=== PATIENT | female | born 1990 | race American Indian/Alaskan Native ===

== ENCOUNTER 2017-01-29 06:09 | Emergency (ER) | payer SELFPAY ==
[2017-01-29 06:09] VITALS: BMI 25.9
--- NOTE | 2017-01-29 07:29 | ED PDOC ---
Arrival/HPI - General Historian: Patient <Ifeanyi Rhodes - Last Filed: 01/29/17 09:36> <Edward Reyes - Last Filed: 01/29/17 10:22> - General Chief Complaint: Abnormal Skin Integrity Time Seen by Provider: 01/29/17 07:10 - History of Present Illness Narrative History of Present Illness (Text): 01/29/17 07:23 Patient is a 26 year old female with past medical history significant for pancreatitis and recurrent abscess who presents to the emergency department complaining of recurrent abscess under her right and left arm. Patient states that 8 days ago she was seen at [facility] and an I&D was preformed for an abscess located under her right arm. She was discharged without antibiotics and returned home. She states since that time the abscess has grown in size. She reports a 3 day history of tingling sensation in her right anterior armpit to arm. She denies developing weakness or numbness in her upper extremity. She rates the pain as 8/10. She denies fever, nausea, vomiting, diarrhea. She admits to some chills. She reports taking Tylenol with out relieve. (Ifeanyi Rhodes) Past Medical History - Provider Review Nursing Documentation Reviewed: Yes - Infectious Disease Hx of Infectious Diseases: None - Tetanus Immunization Tetanus Immunization: Unknown - Cardiac Hx Cardiac Disorders: No - Pulmonary Hx Respiratory Disorders: No - Neurological Hx Neurological Disorder: No - HEENT Hx HEENT Disorder: No - Renal Hx Renal Disorder: No - Endocrine/Metabolic Hx Endocrine Disorders: No - Hematological/Oncological Hx Hepatitis A: No Hx Hepatitis B: No Hx Hepatitis C: No - Integumentary Hx Dermatological Disorder: No - Musculoskeletal/Rheumatological Hx Musculoskeletal Disorders: No Hx Falls: No - Gastrointestinal Hx Crohn's Disease: No Hx Diverticulitis: No Hx Gall Bladder Disease: No Hx Gastritis: No Hx Pancreatitis: Yes - Genitourinary/Gynecological Hx Genitourinary Disorders: No - Psychiatric Hx Psychophysiologic Disorder: Yes Hx Substance Use: No - Surgical History Other/Comment: Cyst removal bilat armpit - Anesthesia Hx Anesthesia: Yes Hx Anesthesia Reactions: No Hx Malignant Hyperthermia: No <Ifeanyi Rhodes - Last Filed: 01/29/17 09:36> <Edward Reyes - Last Filed: 01/29/17 10:22> - Patient History Narrative Patient History: History of recurrent abscess Pacreatitis History of substance abuse History of substance abuse treatment (Ifeanyi Rhodes) Family/Social History - Physician Review Nursing Documentation Reviewed: Yes Family/Social History: No Known Family HX Smoking Status: Light Smoker < 10 Cigarettes Daily Hx Alcohol Use: Yes Frequency of alcohol use: Socially Hx Substance Use: No <Ifeanyi Rhodes - Last Filed: 01/29/17 09:36> Allergies/Home Meds <Ifeanyi Rhodes - Last Filed: 01/29/17 09:36> <Edward Reyes - Last Filed: 01/29/17 10:22> Allergies/Adverse Reactions: Allergies No Known Allergies Allergy (Verified 01/29/17 06:16) Review of Systems - Physician Review All systems were reviewed & negative as marked: Yes - Review of Systems Constitutional: Other (Chills) Musculoskeletal: absent: Neck Pain, Joint Swelling Neurological: absent: Focal Weakness <Ifeanyi Rhodes - Last Filed: 01/29/17 09:36> Physical Exam Temperature: Afebrile Blood Pressure: Hypertensive Pulse: Regular Respiratory Rate: Normal Appearance: Positive for: Well-Appearing Pain Distress: Moderate (with palpation of abscess) Mental Status: Positive for: Alert and Oriented X 3 - Systems Exam Head: Present: Atraumatic, Normocephalic Pupils: Present: PERRL Extroacular Muscles: Present: EOMI Conjunctiva: Present: Normal Mouth: Present: Moist Mucous Membranes Neck: Present: Normal Range of Motion Respiratory/Chest: Present: Clear to Auscultation, Good Air Exchange. No: Respiratory Distress, Accessory Muscle Use Cardiovascular: Present: Regular Rate and Rhythm, Normal S1, S2. No: Murmurs Abdomen: Present: Normal Bowel Sounds. No: Tenderness, Distention, Peritoneal Signs Breast/Axillary: Present: Other (scar tissue from recurrent I&D of abscess with in the axilla, elevated abscess right axilla no drainage ) Upper Extremity: Present: Normal Inspection, Normal ROM, NORMAL PULSES, Neurovascularly Intact Lower Extremity: Present: Normal Inspection. No: Edema Neurological: Present: GCS=15, CN II-XII Intact, Speech Normal Skin: Present: Abscess (Right axilla, Left axilla ) Psychiatric: Present: Alert, Oriented x 3, Normal Insight, Normal Concentration <Ifeanyi Rhodes - Last Filed: 01/29/17 09:36> Medical Decision Making <Ifeanyi Rhodes - Last Filed: 01/29/17 09:36> <Edward Reyes - Last Filed: 01/29/17 10:22> ED Course and Treatment: 01/29/17 07:38 Impression: Tsering Merlos is a 26 year old female with past medical history of recurrent abscess' of the axilla for which she has had multiple I&D procedures who is complaining of pain due to an abscess of the right axilla for the past week. Differential Diagnosis included but are not limited to: - Recurrent abscess Plan: - Bactrim and Keflex prescription for outpatient - I&D of right axilla abscess -- Reassess and disposition Progress Notes: 01/29/17 08:05 - Discussed with patient I&D procedure and she is refusing at this time and would like to request treatment via antibiotics with planned return for wound check (Ifeanyi Rhodes) 01/29/17 10:20 26 yo female with reoccuring abscess. On exam she had one small one on the right axillary that had mild fluctuance and was visualized with ultrasound. Patient did not want to get it I&D here and preferred abx saying that worked before. She says she also wants to get these removed under general anesthesia so we referred her to Dr. Betancourt. Advised her to return to the ED in 3 days for a wound check since she'll be on abx and the abscess will need to be drained. (Edward Reyes) - PA / MECHANICAL INTEGRITY SPECIALIST / Resident Statement / has reviewed & agrees with the documentation as recorded. / has examined the patient and agrees with the treatment plan. <Ifeanyi Rhodes - Last Filed: 01/29/17 09:36> Disposition/Present on Arrival - Present on Arrival Any Indicators Present on Arrival: No History of DVT/PE: No History of Uncontrolled Diabetes: No Urinary Catheter: No History of Decub. Ulcer: No History Surgical Site Infection Following: None - Disposition Have Diagnosis and Disposition been Completed?: Yes Disposition Time: 08:12 Patient Plan: Discharge <Ifeanyi Rhodes - Last Filed: 01/29/17 09:36> - Present on Arrival Any Indicators Present on Arrival: No - Disposition Have Diagnosis and Disposition been Completed?: Yes <Edward Reyes - Last Filed: 01/29/17 10:22> - Disposition Diagnosis: Abscess of axilla, right Disposition: HOME/ ROUTINE Condition: STABLE Discharge Instructions (ExitCare): Abscess (GEN) Additional Instructions: Tsering, thank you for letting us take care of you today. Your provider was Dr. Rhodes and Dr. Reyes. You were treated for abscess. The emergency medical care you received today was directed at your acute symptoms. If you were prescribed any medication, please fill it and take as directed. It may take several days for your symptoms to resolve. Return to the Emergency Department if your symptoms worsen, do not improve, or if you have any other problems. Please contact your doctor or call one of the physicians/clinics you have been referred to that are listed on the Patient Visit Information form that is included in your discharge packet. Bring any paperwork you were given at discharge with you along with any medications you are taking to your follow up visit. Our treatment cannot replace ongoing medical care by a primary care provider (PCP) outside of the emergency department. Thank you for allowing the [facility] team to be part of your care today. Follow up in 3 days to [facility] for wound check Follow up with Dr. Betancourt for surgical management of recurrent abscess Prescriptions: Cephalexin [cephalexin] 500 mg PO BID #14 cap Sulfamethoxazole/Trimethoprim [Bactrim DS 800 mg-160 mg] 1 tab PO BID #14 tab Referrals: Kesha Mariee, [Primary Care Provider] - Follow up with primary Forms: [employer] (Mongolian), WORK NOTE
[2017-01-29 08:47] VITALS: BP 138/72; PULSE 72; RESP 16; TEMP 98.3; O2SAT 99
== END 2017-01-29 08:51 | disposition home or self-care (01) ==
LOC: ED 06:09
DX: L02.411 Cutaneous abscess of right axilla (principal)

== ENCOUNTER 2017-02-27 23:46 | Emergency (ER) | payer SELFPAY ==
[2017-02-27 23:47] VITALS: BMI 25.9
[2017-02-28 00:02] VITALS: BP 138/79; PULSE 78; RESP 18; TEMP 98.4; O2SAT 99
[2017-02-28] MEDS ORDERED: Sodium Chloride 0.9% 1,000 ML IV STA (00:45)
--- NOTE | 2017-02-28 00:45 | ED PDOC ---
Arrival/HPI - General Chief Complaint: Abdominal Pain Time Seen by Provider: 02/28/17 00:30 Historian: Patient - History of Present Illness Narrative History of Present Illness (Text): 02/28/17 00:45 Tsering Merlos is a 25 year old female, whose past medical history includes pancreatitis/gastritis, who presents to the ED complaining of abdominal pain. Patient states she has been experiencing LUQ/epigastric pain radiating to her back for the past 2 days, worsening yesterday. Patient reports associated diarrhea. Patient denies any fever, chills, chest pain, shortness of breath, vomiting, urinary symptoms, back pain, neck pain, headache, dizziness, or any other complaints. Time/Duration: < week (2 days) Symptom Onset: Gradual Symptom Course: Worsening Activities at Onset: Rest, Light Context: Home Past Medical History - Provider Review Nursing Documentation Reviewed: Yes - Infectious Disease Hx of Infectious Diseases: None - Tetanus Immunization Tetanus Immunization: Unknown - Cardiac Hx Cardiac Disorders: No - Pulmonary Hx Respiratory Disorders: No - Neurological Hx Neurological Disorder: No - HEENT Hx HEENT Disorder: No - Renal Hx Renal Disorder: No - Endocrine/Metabolic Hx Endocrine Disorders: No - Hematological/Oncological Hx Hepatitis A: No Hx Hepatitis B: No Hx Hepatitis C: No - Integumentary Hx Dermatological Disorder: No - Musculoskeletal/Rheumatological Hx Musculoskeletal Disorders: No Hx Falls: No - Gastrointestinal Hx Crohn's Disease: No Hx Diverticulitis: No Hx Gall Bladder Disease: No Hx Gastritis: No Hx Pancreatitis: Yes - Genitourinary/Gynecological Hx Genitourinary Disorders: No - Psychiatric Hx Psychophysiologic Disorder: Yes Hx Substance Use: No - Surgical History Other/Comment: Cyst removal bilat armpit - Anesthesia Hx Anesthesia: Yes Hx Anesthesia Reactions: No Hx Malignant Hyperthermia: No Family/Social History - Physician Review Nursing Documentation Reviewed: Yes Family/Social History: Unknown Family HX Smoking Status: Light Smoker < 10 Cigarettes Daily Hx Alcohol Use: Yes Hx Substance Use: No Allergies/Home Meds Allergies/Adverse Reactions: Allergies No Known Allergies Allergy (Verified 01/29/17 06:16) Review of Systems - Physician Review All systems were reviewed & negative as marked: Yes - Review of Systems Constitutional: Normal. absent: Fevers Eyes: Normal ENT: Normal Respiratory: Normal. absent: SOB, Cough Cardiovascular: Normal. absent: Chest Pain Gastrointestinal: Abdominal Pain, Diarrhea. absent: Vomiting Genitourinary Female: Normal. absent: Dysuria, Frequency, Hematuria, Urine Output Changes Musculoskeletal: Normal. absent: Back Pain, Neck Pain Skin: Normal. absent: Rash Neurological: Normal. absent: Headache, Dizziness Endocrine: Normal Hemo/Lymphatic: Normal Psychiatric: Normal Physical Exam Vital Signs Reviewed: Yes Vital Signs Temp Pulse Resp BP Pulse Ox 02/27/17 23:58 98.4 F 78 18 138/79 99 Temperature: Afebrile Blood Pressure: Normal Pulse: Regular Respiratory Rate: Normal Appearance: Positive for: Well-Appearing, Non-Toxic, Comfortable Pain Distress: None Mental Status: Positive for: Alert and Oriented X 3 - Systems Exam Head: Present: Atraumatic, Normocephalic Pupils: Present: PERRL Extroacular Muscles: Present: EOMI Conjunctiva: Present: Normal Mouth: Present: Moist Mucous Membranes Neck: Present: Normal Range of Motion Respiratory/Chest: Present: Clear to Auscultation, Good Air Exchange. No: Respiratory Distress, Accessory Muscle Use Cardiovascular: Present: Regular Rate and Rhythm, Normal S1, S2. No: Murmurs Abdomen: Present: Normal Bowel Sounds. No: Tenderness, Distention, Peritoneal Signs Back: Present: Normal Inspection Upper Extremity: Present: Normal Inspection. No: Cyanosis, Edema Lower Extremity: Present: Normal Inspection. No: Edema Neurological: Present: GCS=15, CN II-XII Intact, Speech Normal, Motor Func Grossly Intact, Normal Sensory Function Skin: Present: Warm, Dry, Normal Color. No: Rashes Psychiatric: Present: Alert, Oriented x 3, Normal Insight, Normal Concentration Medical Decision Making ED Course and Treatment: 02/28/17 00:45 Impression: 26 year old female c/o LUQ/epigastric pain with diarrhea x2 days. Plan: -- CT Abdomen and Pelvis w/o contrast -- Labs, lipase -- Urinalysis -- IV fluids -- Reassess and disposition Progress Notes: 02/28/17 05:01 Reviewed radiology, CT Abdomen and Pelvis shows: 1. Apparent stranding about pancreas. Correlate with amylase/lipase levels to exclude pancreatitis. 2. Possible LEFT ovarian cyst. Consider ultrasound. 3. Mild colitis versus underdistention. Clinical correlation is needed. 4. No CT evidence of urolithiasis. 5. Incidental/non-acute findings are described above. 02/28/17 05:28 On reevaluation the patient feels better and is in no acute distress. I have discussed the results and plan with the patient, who expresses understanding. Patient given the opportunity to ask question, all questions were answered and there is agreement with the plan to discharge the patient home. Patient is stable for discharge. Patient was instructed to follow up with physician/clinic in 1-2 days or return if symptoms persist/worsen or new concerning symptoms arise. - Lab Interpretations Lab Results: 02/28/17 00:30 02/28/17 00:30 Lab Results 02/28/17 00:30: WBC 7.9 D, RBC 3.40 L, Hgb 11.9 L, Hct 34.2 L, MCV 100.6, MCH 35.0, MCHC 34.8, RDW 17.7 H, Plt Count 445, MPV 8.9 02/28/17 00:30: Sodium 140, Potassium 3.0 L, Chloride 103, Carbon Dioxide 20 L, Anion Gap 20, BUN 4 L, Creatinine 0.6, Est GFR ( Amer) > 60, Est GFR (Non -Af Amer) > 60, Random Glucose 150 H, Calcium 9.1, Total Bilirubin 0.8, AST 104 H, ALT 69 H, Alkaline Phosphatase 91, Total Protein 7.5, Albumin 4.2, Globulin 3.3, Albumin/Globulin Ratio 1.3, Lipase 171 02/28/17 00:30: Urine Color Yellow, Urine Appearance Sl cloudy, Urine pH 6.5, Ur Specific [place] 1.025, Urine Protein 30 H, Urine Glucose (UA) Negative, Urine Ketones Trace H, Urine Blood Moderate H, Urine Nitrate Negative, Urine Bilirubin Small H, Urine Urobilinogen 1.0 H, Ur Leukocyte Esterase Negative, Urine RBC 1 - 3, Urine WBC 0 - 2, Ur Epithelial Cells 4 - 5, Urine Bacteria Few , Urine HCG, Qual Negative I have reviewed the lab results: Yes - RAD Interpretation Narrative RAD Interpretations (Text): CT Abdomen and Pelvis shows: Limitations: Lack of intravenous contrast. Lower thorax: No acute findings. ABDOMEN: Liver: Unremarkable. Gallbladder and bile ducts: No calcified stones. No ductal dilation. Pancreas: Apparent minimal haziness about tail. No ductal dilation. Spleen: No splenomegaly. Adrenals: No mass. Kidneys and ureters: No renal calculi. No hydronephrosis. Stomach and bowel: Segmental areas of mild mural thickening vs underdistention of large bowel. No associated inflammatory stranding. No obstruction. Appendix: Normal caliber. No inflammation. PELVIS: Bladder: Unremarkable. No stones. Reproductive: Apparent 1.8 x 1.7 x 2.0 cm hypodense lesion within LEFT ovary. ABDOMEN and PELVIS: Intraperitoneal space: No significant fluid collection. No free air. Bones/joints: No acute fracture. Soft tissues: Unremarkable. Vasculature: Unremarkable. No aneurysm. Lymph nodes: No pathologically enlarged lymph nodes. IMPRESSION: 1. Apparent stranding about pancreas. Correlate with amylase/lipase levels to exclude pancreatitis. 2. Possible LEFT ovarian cyst. Consider ultrasound. 3. Mild colitis versus underdistention. Clinical correlation is needed. 4. No CT evidence of urolithiasis. 5. Incidental/non-acute findings are described above. Radiology Orders: 02/28/17 03:06 ABD & PELVIS W/O PO OR IV CONT [CT] Stat Doctorate Of Chiropractic: Radiologist - Medication Orders Current Medication Orders: Ciprofloxacin (Cipro) 500 mg PO ONCE STA PRN Reason: Protocol Stop: 02/28/17 05:43 Discontinued Medications Sodium Chloride (Sodium Chloride 0.9%) 1,000 mls @ 999 mls/hr IV .Q1H1M STA Stop: 02/28/17 01:45 Last Admin: 02/28/17 00:50 Dose: 999 mls/hr Ketorolac Tromethamine (Toradol) 30 mg IVP ONCE ONE Stop: 02/28/17 02:06 Last Admin: 02/28/17 02:19 Dose: 30 mg Morphine Sulfate (Morphine) Confirm Administered Dose 2 mg .ROUTE .STK-MED ONE Stop: 02/28/17 03:48 Last Admin: 02/28/17 03:50 Dose: Morphine Sulfate (Morphine) 2 mg IVP STAT STA Stop: 02/28/17 03:46 Last Admin: 02/28/17 03:50 Dose: 2 mg Potassium Chloride (K-Dur 20 Meq Er Tab) 40 meq PO STAT STA Stop: 02/28/17 05:03 Last Admin: 02/28/17 05:33 Dose: 40 meq - Scribe Statement The provider has reviewed the documentation as recorded by the Isai Gutierrez Provider Scribe Attestation: All medical record entries made by the Scribe were at my direction and personally dictated by me. I have reviewed the chart and agree that the record accurately reflects my personal performance of the history, physical exam, medical decision making, and the department course for this patient. I have also personally directed, reviewed, and agree with the discharge instructions and disposition. Disposition/Present on Arrival - Present on Arrival Any Indicators Present on Arrival: No History of DVT/PE: No History of Uncontrolled Diabetes: No Urinary Catheter: No History of Decub. Ulcer: No History Surgical Site Infection Following: None - Disposition Have Diagnosis and Disposition been Completed?: Yes Diagnosis: Hypokalemia, Gastroenteritis Disposition: HOME/ ROUTINE Disposition Time: 05:28 Patient Plan: Discharge Patient Problems: Current Active Problems Problem Status Onset Gastroenteritis Acute Hypokalemia Acute Condition: STABLE Discharge Instructions (ExitCare): Hypokalemia (ED), Gastroenteritis (ED) Additional Instructions: Drink plenty of liquids/gatorade/potassium rich foods/take meds as prescribed/ follow up with your doctor this week/any recurrent worsening symptoms return to the emergency room Prescriptions: Ciprofloxacin [Cipro] 500 mg PO BID #6 tab Referrals: Kesha Mariee, [Primary Care Provider] - Follow up with primary Forms: [employer] (Ecuadorean)
[2017-02-28 00:59] LABS: HEMATOCRIT 34.2 % (36.0-48.0); MEAN CELL VOLUME 100.6 fl (80.0-105.0); MEAN CORPUSCULAR HGB CONC 34.8 g/dl (31.0-37.0); MEAN PLATELET VOLUME 8.9 fl (7.0-11.0); RED CELL DISTRIBUTION WIDTH 17.7 % (11.5-14.5); WHITE BLOOD COUNT 7.9 10^3/ul (4.5-11.0)
[2017-02-28 01:08] LABS: PH,URINE 6.5 (4.7-8.0); URINE BILIRUBIN SMALL (NEGATIVE); URINE BLOOD MODERATE (NEGATIVE); URINE GLUCOSE (UA) NEGATIVE (NEGATIVE); URINE KETONE TRACE mg/dL (NEGATIVE); URINE LEUKOCYTE ESTERASE NEGATIVE Leu/uL (NEGATIVE); URINE PROTEIN 30 mg/dL (<30 mg/dL)
[2017-02-28 01:11] LABS: URINE APPEARANCE SL CLOUDY (CLEAR); URINE COLOR YELLOW (YELLOW)
[2017-02-28 01:14] LABS: URINE BACTERIA FEW (NEG); URINE WBC 0 - 2 /hpf (0-6)
[2017-02-28 01:24] LABS: ALB/GLOB RATIO 1.3 (1.1-1.8); ALKALINE PHOSPHATASE 91 U/L (38-133); ALT/SGPT 69 U/L (7-56); AST/SGOT 104 U/L (15-39); BILIRUBIN,TOTAL 0.8 mg/dL (0.2-1.3); BLOOD UREA NITROGEN 4 mg/dL (7-21); CALCIUM 9.1 mg/dL (8.4-10.5); CARBON DIOXIDE 20 mmol/L (21-33); CHLORIDE 103 mmol/L (95-110); GFR AFRICAN-AMERICAN > 60; GLUCOSE,RANDOM 150 mg/dL (70-110); LIPASE 171 U/L (23-300); SODIUM 140 mmol/L (132-148); TOTAL PROTEIN 7.5 g/dL (5.8-8.3)
[2017-02-28] MEDS ORDERED: Morphine 2 mg/ml ISec IVP STA (03:45)
[2017-02-28] MEDS ORDERED: Morphine 2 mg/ml ISec ONE (03:47)
--- NOTE | 2017-02-28 05:00 | CT ---
EXAM: CT Abdomen and Pelvis Without Intravenous Contrast CLINICAL HISTORY: 26 years old, female; Pain; Abdominal pain; Additional info: Left upper abdomen/flank TECHNIQUE: Axial computed tomography images of the abdomen and pelvis without intravenous contrast. All CT scans at this facility use one or more dose reduction techniques, viz.: automated exposure control; ma/kV adjustment per patient size (including targeted exams where dose is matched to indication; i.e. head); or iterative reconstruction technique. Coronal and sagittal reformatted images were created and reviewed. COMPARISON: No relevant prior studies available. FINDINGS: Limitations: Lack of intravenous contrast. Lower thorax: No acute findings. ABDOMEN: Liver: Unremarkable. Gallbladder and bile ducts: No calcified stones. No ductal dilation. Pancreas: Apparent minimal haziness about tail. No ductal dilation. Spleen: No splenomegaly. Adrenals: No mass. Kidneys and ureters: No renal calculi. No hydronephrosis. Stomach and bowel: Segmental areas of mild mural thickening vs underdistention of large bowel. No associated inflammatory stranding. No obstruction. Appendix: Normal caliber. No inflammation. PELVIS: Bladder: Unremarkable. No stones. Reproductive: Apparent 1.8 x 1.7 x 2.0 cm hypodense lesion within LEFT ovary. ABDOMEN and PELVIS: Intraperitoneal space: No significant fluid collection. No free air. Bones/joints: No acute fracture. Soft tissues: Unremarkable. Vasculature: Unremarkable. No aneurysm. Lymph nodes: No pathologically enlarged lymph nodes. IMPRESSION: 1. Apparent stranding about pancreas. Correlate with amylase/lipase levels to exclude pancreatitis. 2. Possible LEFT ovarian cyst. Consider ultrasound. 3. Mild colitis versus underdistention. Clinical correlation is needed. 4. No CT evidence of urolithiasis. 5. Incidental/non-acute findings are described above.
[2017-02-28] MEDS ORDERED: Potassium Chloride 20 mEq ER Tab PO STA (05:02)
== END 2017-02-28 05:57 | disposition home or self-care (01) ==
LOC: ED 23:46
DX: K52.9 Noninfective gastroenteritis and colitis, unspecified (principal); E87.6 Hypokalemia
CPT/HCPCS: 74176; 80053; 81001; 83690; 84703; 85027; 96374; 96375; 99283; J1885; J2270; J7040

== ENCOUNTER 2017-02-28 19:03 | Emergency (ER) | payer MEDICAID, OTHER ==
[2017-02-28 19:05] VITALS: BMI 24.1
[2017-02-28] MEDS ORDERED: Sodium Chloride 0.9% 1,000 ML IV STA (19:28)
--- NOTE | 2017-02-28 19:33 | ED PDOC ---
Arrival/HPI - History of Present Illness Time/Duration: 4-6 hours Symptom Onset: Gradual Symptom Course: Unchanged Quality: Throbbing Severity Level: 7 Activities at Onset: Rest Context: Home - General Chief Complaint: GI Problem Time Seen by Provider: 02/28/17 19:08 - History of Present Illness Narrative History of Present Illness (Text): 02/28/17 19:29 This a 26 yr old female with a past medical history of pancreatitis who comes into [facility] complaining of vomiting and diarrhea for approximately one day. Per the patient she was released from [facility] this morning after coming in with similar symptoms on 02/28/17. She describes the pain as "throbbing" that begins in the left lower quadrant and radiates to the left upper quadrant and right upper quadrant. She reports taking a Tylenol for the pain but had no relief in her pain. She reports subjective fevers, chills and nausea. She denies any chest pain, shortness of breath, lightheadedness, dizziness, or any other complaints. (Robin Connor) Past Medical History - Provider Review Nursing Documentation Reviewed: Yes - Infectious Disease Hx of Infectious Diseases: None - Tetanus Immunization Tetanus Immunization: Unknown - Cardiac Hx Cardiac Disorders: No - Pulmonary Hx Respiratory Disorders: No - Neurological Hx Neurological Disorder: No - HEENT Hx HEENT Disorder: No - Renal Hx Renal Disorder: No - Endocrine/Metabolic Hx Endocrine Disorders: No - Hematological/Oncological Hx Hepatitis A: No Hx Hepatitis B: No Hx Hepatitis C: No - Integumentary Hx Dermatological Disorder: No - Musculoskeletal/Rheumatological Hx Musculoskeletal Disorders: No Hx Falls: No - Gastrointestinal Hx Crohn's Disease: No Hx Diverticulitis: No Hx Gall Bladder Disease: No Hx Gastritis: No Hx Pancreatitis: Yes - Genitourinary/Gynecological Hx Genitourinary Disorders: No - Psychiatric Hx Psychophysiologic Disorder: Yes Hx Substance Use: No - Surgical History Other/Comment: Cyst removal bilat armpit - Anesthesia Hx Anesthesia: Yes Hx Anesthesia Reactions: No Hx Malignant Hyperthermia: No Family/Social History - Physician Review Nursing Documentation Reviewed: Yes Smoking Status: Light Smoker < 10 Cigarettes Daily Hx Alcohol Use: Yes Frequency of alcohol use: Few days per week Hx Substance Use: No Allergies/Home Meds Allergies/Adverse Reactions: Allergies No Known Allergies Allergy (Verified 01/29/17 06:16) Review of Systems - Physician Review All systems were reviewed & negative as marked: Yes - Review of Systems Constitutional: Fevers (subjective fevers reported. Patient denies taking temperature with a thermometer.), Night Sweats. absent: Normal Eyes: Normal. absent: Eye Pain ENT: Normal. absent: Sore Throat, Rhinorrhea, Sinus Congestion Respiratory: Normal. absent: SOB, Cough, Wheezing Cardiovascular: Normal. absent: Chest Pain, Palpitations, Syncope Gastrointestinal: Abdominal Pain, Diarrhea, Nausea, Vomiting (non-billous, non- bloody). absent: Hematochezia, Hematemesis Genitourinary Female: Normal. absent: Dysuria, Frequency Musculoskeletal: Normal. absent: Back Pain, Joint Swelling Skin: Normal. absent: Rash, Abscess, Cellulitis Neurological: Normal. absent: Headache, Dizziness, Disequilibrium Hemo/Lymphatic: Normal. absent: Easy Bleeding, Easy Bruising Physical Exam Vital Signs Reviewed: Yes Temperature: Afebrile Blood Pressure: Hypertensive Pulse: Tachycardic Respiratory Rate: Normal Appearance: Positive for: Well-Appearing, Non-Toxic, Comfortable Pain Distress: Moderate Mental Status: Positive for: Alert and Oriented X 3 - Systems Exam Head: Present: Atraumatic, Normocephalic Pupils: Present: PERRL Extroacular Muscles: Present: EOMI. No: Gaze Palsy Conjunctiva: Present: Normal, Other Mouth: Present: Moist Mucous Membranes Neck: Present: Normal Range of Motion. No: JVD, Lymphadenopathy Respiratory/Chest: Present: Clear to Auscultation, Good Air Exchange. No: Respiratory Distress, Accessory Muscle Use, Wheezes, Tachypneic Cardiovascular: Present: Normal S1, S2. No: Regular Rate and Rhythm, Murmurs, Bradycardic Abdomen: Present: Tenderness (tenderness to palpation appreciated in all four quadrants of abdomen), Normal Bowel Sounds. No: Distention, Peritoneal Signs, Rebound Upper Extremity: Present: Normal Inspection. No: Cyanosis, Edema Lower Extremity: Present: Normal Inspection. No: Edema, Cyanosis Neurological: Present: CN II-XII Intact, Speech Normal Skin: Present: Dry, Normal Color. No: Warm, Rashes Psychiatric: Present: Alert, Oriented x 3, Normal Insight, Normal Concentration Vital Signs Temp Pulse Resp BP Pulse Ox 02/28/17 21:18 98.3 F 90 16 157/105 H 99 02/28/17 19:08 98.7 F 105 H 18 153/115 H 100 Medical Decision Making ED Course and Treatment: 02/28/17 20:35 pt seen and examined with resident 26yo female with n/v, abd pain. Pt was seen yesterday for similar complaint, was given cipro rx. pt states she did not fill it. On reeval, pt in no distress, resting comfortably in bed, watching TV abd soft/nt/nt pt provided with Rx card 02/28/17 21:51 Patient seen and examined with resident. Came up with treatment and disposition plan with resident. (Phill Turner) 02/28/17 19:42 This patient came in complaining of diffuse stomach pain, nausea, and vomiting after being discharged from [facility] earlier this morning. We ordered cbc with differential, cmp, lipase, and magnesium levels. We gave Zofran for the nausea and Toradol for the pain. The patient will be re- evaluated after lab results come back. Patient lab results showed a low potassium at 3.4 and low magnesium at 1.1. Patient was given KCL PO for the low potassium and MgSO4 1gm/100ml IVPB. Patient was also given PO intake tolerance to see if she is able to keep food and liquids down. The patient had a Abdominal CT done earlier this morning that showed some stranding around the pancreas, no signs of urolithiasis, possible left ovarian cyst(consider U/S) , and mild colitis vs. underdistention(clinical correlation is needed). Patient tolerating PO without vomiting. Belly is soft. Vitals are normal : BP 150/105, HR: 89, 98.3 F, 98 O2 Sat R.A. Patient was prescribed Ciprofloxacin at her last visit to the Emergency Department however didn't fill it due to the vance. I gave the patient a Good Rx coupon to subsidize the cost of the medication. I instructed the patient to fill the prescription and to take as directed by the physician. Patient was also given a referral to establish care with Dr. Moreno. (Robin Connor) - Lab Interpretations Lab Results: 02/28/17 19:45 02/28/17 19:45 Lab Results 02/28/17 19:45: Sodium 139, Potassium 3.4 L, Chloride 105, Carbon Dioxide 19 L, Anion Gap 18, BUN 8, Creatinine 1.4, Est GFR ( Amer) 55, Est GFR (Non-Af Amer) 45, Random Glucose 92, Calcium 8.6, Magnesium 1.1 L, Total Bilirubin 1.5 H , AST 80 H, ALT 58 H, Alkaline Phosphatase 96, Total Protein 7.6, Albumin 4.2, Globulin 3.4, Albumin/Globulin Ratio 1.2, Lipase 88 02/28/17 19:45: WBC 11.2 H D, RBC 3.32 L, Hgb 11.5 L, Hct 33.4 L, MCV 100.6, MCH 34.6, MCHC 34.4, RDW 17.1 H, Plt Count 399, MPV 8.8, Gran % 76.8 H, Lymph % (Auto) 13.9 L, [place] % (Auto) 8.3 H, Eos % (Auto) 0.9 L, Baso % (Auto) 0.1, Gran # 8.64 H, Lymph # 1.6, [place] # 0.9 H, Eos # 0.1, Baso # 0.01, Neutrophils % ( Manual) 82 H, Lymphocytes % (Manual) 14 L, Monocytes % (Manual) 1, Eosinophils % (Manual) 3, Platelet Evaluation Normal, Macrocytosis (manual) Slight - Medication Orders Current Medication Orders: Discontinued Medications Sodium Chloride (Sodium Chloride 0.9%) 1,000 mls @ 999 mls/hr IV .Q1H1M STA Stop: 02/28/17 20:28 Last Admin: 02/28/17 19:50 Dose: 999 mls/hr Magnesium Sulfate/Dextrose (Magnesium Sulfate 1 Gm/100 Ml D5w) 1 gm in 100 mls @ 100 mls/hr IVPB ONCE ONE Stop: 02/28/17 21:17 Ketorolac Tromethamine (Toradol) 15 mg IVP STAT STA Stop: 02/28/17 19:30 Last Admin: 02/28/17 19:49 Dose: 15 mg Ondansetron HCl (Zofran Inj) 4 mg IVP STAT STA Stop: 02/28/17 19:32 Last Admin: 02/28/17 19:50 Dose: 4 mg Potassium Chloride (K-Dur 20 Meq Er Tab) 40 meq PO STAT STA Stop: 02/28/17 20:54 Disposition/Present on Arrival - Present on Arrival History of DVT/PE: No History of Uncontrolled Diabetes: No Urinary Catheter: No History of Decub. Ulcer: No History Surgical Site Infection Following: None - Disposition Have Diagnosis and Disposition been Completed?: Yes Disposition Time: 21:25 Patient Plan: Discharge - Disposition Diagnosis: Abdominal pain, Hypokalemia, gastrointestinal losses Disposition: HOME/ ROUTINE Patient Problems: Current Active Problems Problem Status Onset Abdominal pain Acute Hypokalemia, gastrointestinal losses Acute Condition: GOOD Discharge Instructions (ExitCare): Abdominal Pain (ED) Additional Instructions: -Instructed patient to fill Ciprofloxacin prescription using the Good RX coupon and to take as prescribed by the physician. -Instructed patient to drink adequate fluids as tolerated PO. -Instructed patient to F/U with Dr. Moreno's Service. -Instructed patient to establish care with a Primary Care physician. -Patient is to return to [facility] if any new symptoms present or current symptoms worsen. Referrals: PCP,NO [Primary Care Provider] - Follow up with primary Natividad Moreno MD [Staff Provider] - Follow up with primary Forms: Easiest Credit Card To Get Approved For ([place])
[2017-02-28 19:59] LABS: BASO # 0.01 K/mm3 (0.0-2.0); BASO % 0.1 % (0.0-3.0); EOS # 0.1 (0.0-0.7); EOS % 0.9 % (1.5-5.0); GRAN # 8.64 (1.4-6.5); GRAN % 76.8 % (50.0-68.0); HEMATOCRIT 33.4 % (36.0-48.0); LYMPH # 1.6 (1.2-3.4); LYMPH % 13.9 % (22.0-35.0); MEAN CELL VOLUME 100.6 fl (80.0-105.0); MEAN CORPUSCULAR HEMOGLOBIN 34.6 pg (25.0-35.0); MEAN CORPUSCULAR HGB CONC 34.4 g/dl (31.0-37.0); MEAN PLATELET VOLUME 8.8 fl (7.0-11.0); MONO # 0.9 (0.1-0.6); MONO % 8.3 % (1.0-6.0); PLATELET COUNT 399 10^3/uL (120.0-450.0); RED CELL DISTRIBUTION WIDTH 17.1 % (11.5-14.5); WHITE BLOOD COUNT 11.2 10^3/ul (4.5-11.0)
[2017-02-28 20:10] LABS: ALB/GLOB RATIO 1.2 (1.1-1.8); BILIRUBIN,TOTAL 1.5 mg/dL (0.2-1.3); CALCIUM 8.6 mg/dL (8.4-10.5); MAGNESIUM 1.1 mg/dL (1.7-2.2); POTASSIUM 3.4 mmol/L (3.6-5.0); TOTAL PROTEIN 7.6 g/dL (5.8-8.3)
[2017-02-28] MEDS ORDERED: Magnesium Sulfate 1 gm in D5W 1 GM/100 ML BAG IVPB ONE (20:18)
[2017-02-28 20:49] LABS: EOSINOPHIL 3 % (0.0-3.0); NEUTROPHIL 82 % (50.0-70.0); PLATELET ESTIMATE NORMAL (NORMAL)
[2017-02-28] MEDS ORDERED: Potassium Chloride 20 mEq ER Tab PO STA (20:53)
[2017-02-28 21:19] VITALS: BP 157/105; PULSE 90; RESP 16; TEMP 98.3; O2SAT 99
== END 2017-02-28 21:18 | disposition home or self-care (01) ==
LOC: ED 19:03
DX: E87.6 Hypokalemia (principal); R10.9 Unspecified abdominal pain
CPT/HCPCS: 80053; 83690; 83735; 85025; 96361; 96374; 96375; 99283; J1885; J2405; J7040

== ENCOUNTER 2018-05-27 00:30 | Inpatient (IN) | payer MEDICAID, OTHER ==
[2018-05-27 00:30] VITALS: BMI 24.4
[2018-05-27] MEDS ORDERED: Sodium Chloride 0.9% 1,000 ML IV STA (01:01)
--- NOTE | 2018-05-27 01:07 | ED PDOC ---
Arrival/HPI - General Historian: Patient - History of Present Illness Narrative History of Present Illness (Text): 05/27/18 01:02 This is a 28 year old female with pmh of pancreatitis, alcohol abuse, hydranitis supportiva who presents with epigastric abdominal pain with n/v for the past 3 days. Pt is a poor historian. Epigastric pain radiates to the back, is sharp and intermittent. Vomiting is nonbloody, and pt reports that she cannot keep food or water down. Pt was recently admitted for pancreatitis at [facility] [place] and she was discharged on 05/26 at 6 pm. Pt presents with discharge papers that show pt was provided with prescription for zofran, percocet, pepcid, iron tabs, pancrealipase, thiamine and multivitamins. Pt states that she wasn't able to fill these prescriptions but is unable to give a reason why. Pt denies fever, chills, hematochezia, melena, urinary complaints. PMD: none PMH: pancreatitis, alcohol abuse, hydranitis supportiva PSH: abscess removal in bilateral axillas 2017 Meds: none as per pt Allx: NKDA Social hx: (+) etoh, 1/2 pint of vodka almost every day, (+) active smoker, denies illicit drug use Time/Duration: Other (3 days) Symptom Course: Unchanged Associated Symptoms (Text): 05/27/18 01:08 nausea and vomiting <Willie Payan - Last Filed: 05/27/18 06:36> <Thierry Montague - Last Filed: 05/28/18 06:20> - General Chief Complaint: Abdominal Pain Past Medical History - Provider Review Nursing Documentation Reviewed: Yes - Infectious Disease Hx of Infectious Diseases: None - Tetanus Immunization Tetanus Immunization: Unknown - Cardiac Hx Cardiac Disorders: No - Pulmonary Hx Respiratory Disorders: No - Neurological Hx Neurological Disorder: No - HEENT Hx HEENT Disorder: No - Renal Hx Renal Disorder: No - Endocrine/Metabolic Hx Endocrine Disorders: No - Hematological/Oncological Hx Blood Disorders: No - Integumentary Hx Dermatological Disorder: No - Musculoskeletal/Rheumatological Hx Musculoskeletal Disorders: No - Gastrointestinal Hx Gastrointestinal Disorders: Yes Hx Pancreatitis: Yes - Genitourinary/Gynecological Hx Genitourinary Disorders: No - Psychiatric Hx Psychophysiologic Disorder: No Hx Substance Use: No - Surgical History Other/Comment: Cyst removal / ABCESS bilat armpit - Anesthesia Hx Anesthesia: Yes Hx Anesthesia Reactions: No Hx Malignant Hyperthermia: No <Neil Payany - Last Filed: 05/27/18 06:36> Family/Social History - Physician Review Nursing Documentation Reviewed: Yes Family/Social History: Unknown Family HX Smoking Status: Light Smoker < 10 Cigarettes Daily Hx Alcohol Use: Yes Hx Substance Use: No <Willie Payan - Last Filed: 05/27/18 06:36> Allergies/Home Meds <Willie Payan - Last Filed: 05/27/18 06:36> <Thierry Montague - Last Filed: 05/28/18 06:20> Allergies/Adverse Reactions: Allergies No Known Allergies Allergy (Verified 05/27/18 00:44) Review of Systems - Review of Systems Constitutional: Normal Eyes: Normal ENT: Normal Respiratory: Normal Cardiovascular: Normal Gastrointestinal: Abdominal Pain, Diarrhea, Nausea, Vomiting Genitourinary Female: Normal Musculoskeletal: Normal Skin: Normal Neurological: Normal Endocrine: Normal Hemo/Lymphatic: Normal Psychiatric: Normal <LaithandreWillie - Last Filed: 05/27/18 06:36> Physical Exam Vital Signs Reviewed: Yes Vital Signs Temp Pulse Resp BP Pulse Ox 05/27/18 00:34 98.3 F 100 H 17 142/100 H 100 Temperature: Afebrile Blood Pressure: Normal Pulse: Regular Respiratory Rate: Normal Appearance: Positive for: Non-Toxic, Uncomfortable Pain Distress: Mild Mental Status: Positive for: Alert and Oriented X 3 - Systems Exam Head: Present: Atraumatic, Normocephalic Extroacular Muscles: Present: EOMI Mouth: Present: Moist Mucous Membranes Respiratory/Chest: Present: Clear to Auscultation. No: Respiratory Distress, Accessory Muscle Use, Wheezes, Rales, Rhonchi Cardiovascular: Present: Regular Rate and Rhythm, Normal S1, S2 Abdomen: Present: Tenderness (moderate epigastric, and RUQ tenderness (+) murphys sign), Normal Bowel Sounds. No: Distention, Rebound, Guarding Upper Extremity: Present: Normal Inspection, NORMAL PULSES, Capillary Refill < 2s. No: Edema Lower Extremity: Present: Normal Inspection, NORMAL PULSES, Capillary Refill < 2 s. No: Edema, CALF TENDERNESS Neurological: Present: GCS=15 Skin: Present: Warm, Dry, Normal Color Psychiatric: Present: Alert, Oriented x 3 <PriscilamarybethWillie diaz - Last Filed: 05/27/18 06:36> Vital Signs Temp Pulse Resp BP Pulse Ox 05/27/18 00:34 98.3 F 100 H 17 142/100 H 100 <Thierry Montague - Last Filed: 05/28/18 06:20> Medical Decision Making ED Course and Treatment: 05/27/18 01:09 28 year old female with epigastric abdominal pain, recently admitted at [facility] [place]itis CBC, CMP, lipase GB/Pancreatic US NS IVF 1L bolus Toradol 30 mg IVP for pain On re-evaluation pt states that she still has pain. Pt given Morphine 2 mg IVP. Attending discussed the case with Dr. Lozano, who will accept the pt for obs med/surg. - Lab Interpretations Interpretation: Abnormal lab values (lipase is 428) <Willie Payan - Last Filed: 05/27/18 06:36> ED Course and Treatment: Impression: Pt seen and evaluated with medical cash poster shank boner. Aware and agree with HPI, clinical findings, plan, and management. Pt, whose past medical history includes pancreatitis, alcohol abuse, and hiddradenitis suppurativa, presented for epigastric pain with nausea and vomiting. Plan: -- US Gallbladder and Pancreas -- Labs, lipase -- IV fluids -- Toradol -- Zofran -- Reassess and disposition - RAD Interpretation Narrative RAD Interpretations (Text): US Abdomen: Liver measures 17.1 cm. Diffuse increased hepatic echogenicity suggestive of hepatic steatosis. Small hepatic contour. Unremarkable gallbladder without evidence of cholelithiasis or acute cholecystitis. Normal gallbladder wall thickness measuring 2.3 mm. Normal pancreas. Nondilated pancreatic duct measuring 3.1 mm. Nondilated common bile duct measuring 6.5 cm. Unremarkable IVC as visualized. Non-aneurysmal aorta. Unremarkable right kidney measuring 10.6x5.2x5.6 cm. Impression: Hepatic steatosis. No other abnormality is seen. Electronically signed on May 27, 2018 2:09:23 AM EST by: Tevin Hernandez M.D., Certified by ANGEL, MSK, Neuroradiology Radiology Orders: 05/27/18 01:11 GALLBLADDER & PANCREAS [US] Stat Director Of Women'S Services: Radiologist - Medication Orders Current Medication Orders: Sodium Chloride (Sodium Chloride 0.9%) 1,000 mls @ 999 mls/hr IV .Q1H1M STA Stop: 05/27/18 02:01 Discontinued Medications Ketorolac Tromethamine (Toradol) 30 mg IVP STAT STA Stop: 05/27/18 01:02 Ondansetron HCl (Zofran Inj) 4 mg IVP STAT STA Stop: 05/27/18 01:02 <Thierry Montague - Last Filed: 05/28/18 06:20> - PA / CREDIT AND COLLECTIONS REPRESENTATIVE / Resident Statement / has reviewed & agrees with the documentation as recorded. / has examined the patient and agrees with the treatment plan. <Thierry Montague - Last Filed: 05/28/18 06:20> Disposition/Present on Arrival - Present on Arrival Any Indicators Present on Arrival: No History of DVT/PE: No History of Uncontrolled Diabetes: No Urinary Catheter: No History of Decub. Ulcer: No History Surgical Site Infection Following: None - Disposition Have Diagnosis and Disposition been Completed?: Yes Disposition Time: 03:55 Patient Plan: Observation (med/surg) <Willie Payan - Last Filed: 05/27/18 06:36> <Thierry Montague - Last Filed: 05/28/18 06:20> - Disposition Diagnosis: Intractable abdominal pain, Nausea & vomiting Disposition: HOSPITALIZED Patient Problems: Current Active Problems Problem Status Onset Intractable abdominal pain Acute Nausea & vomiting Acute Condition: STABLE
[2018-05-27 02:39] LABS: BASO # 0.01 K/mm3 (0.0-2.0); BASO % 0.1 % (0.0-3.0); EOS # 0.1 (0.0-0.7); EOS % 0.8 % (1.5-5.0); GRAN # 4.89 (1.4-6.5); GRAN % 67.3 % (50.0-68.0); HEMOGLOBIN 11.3 g/dL (12.0-16.0); LYMPH # 1.9 (1.2-3.4); LYMPH % 25.8 % (22.0-35.0); MEAN CORPUSCULAR HGB CONC 32.6 g/dl (31.0-37.0); MONO # 0.4 (0.1-0.6); RBC 3.65 10^6/uL (3.5-6.1); RED CELL DISTRIBUTION WIDTH 20.4 % (11.5-14.5); WHITE BLOOD COUNT 7.3 10^3/uL (4.5-11.0)
[2018-05-27 02:40] LABS: ALBUMIN 4.1 g/dL (3.0-4.8); ALT/SGPT 47 U/L (7-56); AST/SGOT 61 U/L (14-36); BLOOD UREA NITROGEN 2 mg/dL (7-21); CALCIUM 9.5 mg/dL (8.4-10.5); GFR NON-AFRICAN AMERICAN > 60; LIPASE 428 U/L (23-300)
[2018-05-27 02:54] LABS: MEAN CELL VOLUME 95.1 fl (80.0-105.0)
[2018-05-27] MEDS ORDERED: Morphine 2 mg/ml ISec IVP STA (03:25)
[2018-05-27] MEDS ORDERED: Morphine 2 mg/ml ISec IVP ONE (03:59)
--- NOTE | 2018-05-27 04:08 | CP.PCM.HP ---
<Goyo Gresham - Last Filed: 05/27/18 04:25> History of Present Illness - History of Present Illness History of Present Illness: Goyo Gresham DO, PGY-1 Hospitalist Admission History and Physical for Dr. Lozano CC: epigastric abdominal pain HPI: Ms. Merlos is a 28 year old female with PMH of pancreatitis, alcohol abuse, and hydradenitis suppurativa who presents to ED with worsening epigastric abdominal pain. She states that this abdominal pain started about a week ago. [place] [facility] and states she left there Friday after being treated for pancreatitis. Since then she states the pain has not improved and has continued to get worse. She denies having any alcoholic beverages or other drugs since [place] [facility]. She describes the pain as an intermittent, sharp, stabbing type pain that radiates to her back and lower chest. The pain is worse in the epigastric region. She states nothing has helped with the pain, including OTC tums and mylanta. Aside from the abdominal pain, she denies fever/chills, mid-sternal CP, SOB, dyspnea on exertion, cough, congestion, JULES, blurred vision, or peripheral numbness/tingling. PMD: none Past Medical Hx: pancreatitis, alcohol abuse, and hydradenitis suppurativa Past Surgical Hx: b/l axilla abscess removal from hydradenitis suppurativa Allergies: NKA Home medications: no home meds Family Hx: reviewed, non-contributory Social Hx: admits to smoking cigarettes about 10 cigarettes per day for the past 10 years. She admits to drinking about 1/2 pint of vodka daily, she denies i llicit drug use Pharmacy: no preferred pharmacy Present on Admission - Present on Admission Any Indicators Present on Admission: No History of DVT/PE: No History of Uncontrolled Diabetes: No Urinary Catheter: No Decubitus Ulcer Present: No Review of Systems - Constitutional Constitutional: absent: Chills, Fever - EENT Eyes: absent: Blurred Vision Nose/Mouth/Throat: absent: Nasal Congestion, Nasal Discharge - Cardiovascular Cardiovascular: absent: Chest Pain, Dyspnea, Edema, Palpitations - Respiratory Respiratory: absent: Cough, Dyspnea, Dyspnea on Exertion - Gastrointestinal Gastrointestinal: Abdominal Pain, Diarrhea, Nausea, Vomiting - Genitourinary Genitourinary: absent: Change in Urinary Stream, Difficulty Urinating - Musculoskeletal Musculoskeletal: Back Pain. absent: Abnormal Gait - Integumentary Integumentary: Lesions (few hidradenitis lesions in b/l axillae) - Neurological Neurological: absent: Abnormal Gait, Confusion Past Patient History - Infectious Disease Hx of Infectious Diseases: None - Tetanus Immunizations Tetanus Immunization: Unknown - Past Medical History & Family History Past Medical History?: Yes - Past Social History Smoking Status: Light Smoker < 10 Cigarettes Daily Alcohol: > 2 Drinks/Day Drugs: Denies - CARDIAC Hx Cardiac Disorders: No - PULMONARY Hx Respiratory Disorders: No - NEUROLOGICAL Hx Neurological Disorder: No - HEENT Hx HEENT Problems: No - RENAL Hx Chronic Kidney Disease: No - ENDOCRINE/METABOLIC Hx Endocrine Disorders: No - HEMATOLOGICAL/ONCOLOGICAL Hx Blood Disorders: No - INTEGUMENTARY Hx Dermatological Problems: No - MUSCULOSKELETAL/RHEUMATOLOGICAL Hx Musculoskeletal Disorders: No - GASTROINTESTINAL Hx Gastrointestinal Disorders: Yes Hx Pancreatitis: Yes - GENITOURINARY/GYNECOLOGICAL Hx Genitourinary Disorders: No - PSYCHIATRIC Hx Psychophysiologic Disorder: No Hx Substance Use: No - SURGICAL HISTORY Other/Comment: Cyst removal / ABCESS bilat armpit - ANESTHESIA Hx Anesthesia: Yes Hx Anesthesia Reactions: No Hx Malignant Hyperthermia: No Meds Allergies/Adverse Reactions: Allergies Allergy/AdvReac Type Severity Reaction Status Date / Time No Known Allergies Allergy Verified 05/27/18 00:44 Physical Exam - Constitutional Appears: Non-toxic, No Acute Distress - Head Exam Head Exam: ATRAUMATIC, NORMOCEPHALIC - Eye Exam Eye Exam: EOMI, Normal appearance, PERRL - ENT Exam ENT Exam: Mucous Membranes Moist - Neck Exam Neck exam: Positive for: Full Rom, Normal Inspection. Negative for: Tenderness - Respiratory Exam Respiratory Exam: Clear to Auscultation Bilateral. absent: Accessory Muscle Use, Chest Wall Tenderness, Rales, Rhonchi, Wheezes, Respiratory Distress - Cardiovascular Exam Cardiovascular Exam: REGULAR RHYTHM, RRR, +S1, +S2. absent: Diastolic murmur, Gallop, Rubs, Systolic Murmur - GI/Abdominal Exam GI & Abdominal Exam: Normal Bowel Sounds, Soft, Tenderness (mild tenderness to palpation epigastric region). absent: Firm, Guarding, Organomegaly, Rebound - Extremities Exam Extremities exam: Positive for: normal inspection. Negative for: pedal edema - Back Exam Back exam: FULL ROM, NORMAL INSPECTION - Neurological Exam Neurological exam: Alert, Normal Gait, Oriented x3 - Psychiatric Exam Psychiatric exam: Anxious - Skin Skin Exam: Dry, Intact, Warm Results - Vital Signs Recent Vital Signs: Last Vital Signs Temp 98.3 F 05/27/18 03:08 Pulse 83 05/27/18 03:08 Resp 19 05/27/18 03:08 BP 155/99 H 05/27/18 03:08 Pulse Ox 100 05/27/18 03:08 - Labs Result Diagrams: 05/27/18 02:20 05/27/18 02:20 Labs: Laboratory Results - last 24 hr 05/27/18 05/27/18 02:20 02:20 WBC 7.3 RBC 3.65 Hgb 11.3 L Hct 34.7 L MCV 95.1 D MCH 31.0 MCHC 32.6 RDW 20.4 H Plt Count 320 MPV 9.0 Gran % 67.3 Lymph % (Auto) 25.8 Spalding % (Auto) 6.0 Eos % (Auto) 0.8 L Baso % (Auto) 0.1 Gran # 4.89 Lymph # (Auto) 1.9 [place] # (Auto) 0.4 Eos # (Auto) 0.1 Baso # (Auto) 0.01 Sodium 136 Potassium 4.4 Chloride 100 Carbon Dioxide 28 Anion Gap 12 BUN 2 L Creatinine 0.5 L Est GFR ( Amer) > 60 Est GFR (Non-Af Amer) > 60 Random Glucose 109 Calcium 9.5 Phosphorus 3.8 Magnesium 1.7 Total Bilirubin 0.7 AST 61 H D ALT 47 Alkaline Phosphatase 121 Total Protein 8.1 Albumin 4.1 Globulin 4.0 Albumin/Globulin Ratio 1.0 L Lipase 428 H Assessment & Plan - Assessment and Plan (Free Text) Assessment: 28 yo F with PMH of pancreatitis, alcohol abuse, and hydradenitis suppurativa is admitted for intractable epigastric abdominal pain. Plan: 1. Epigastric abdominal pain May be 2/2 residual pancreatitis vs GERD Lipase only mildly elevated at 428 Start NS at 100 cc/hr Given 4 mg of morphine in ED which she states helped May give percocet 5/325 q4h PRN for pain Zofran q6h PRN for nausea/vomiting NPO for now, likely advance diet later in AM 2. Hx hydradenitis suppurativa No obvious axillary lesions noted at this time 3. Hx alcohol abuse CIWA protocol Ativan q4h PRN for anxiety/agitation DVT/GI PPX: SCD, protonix Full Code NPO Monitor on med/surg Case and plan reviewed and discussed with my attending Dr. Marta Gresham, DO IM Resident PGY-1 <Cihna Lozano - Last Filed: 05/27/18 06:42> Results - Vital Signs Recent Vital Signs: Last Vital Signs Temp 97.9 F 05/27/18 06:00 Pulse 83 05/27/18 06:00 Resp 20 05/27/18 06:00 BP 140/97 H 05/27/18 06:00 Pulse Ox 100 05/27/18 06:00 - Labs Result Diagrams: 05/27/18 02:20 05/27/18 02:20 Labs: Laboratory Results - last 24 hr 05/27/18 05/27/18 02:20 02:20 WBC 7.3 RBC 3.65 Hgb 11.3 L Hct 34.7 L MCV 95.1 D MCH 31.0 MCHC 32.6 RDW 20.4 H Plt Count 320 MPV 9.0 Gran % 67.3 Lymph % (Auto) 25.8 Spalding % (Auto) 6.0 Eos % (Auto) 0.8 L Baso % (Auto) 0.1 Gran # 4.89 Lymph # (Auto) 1.9 [place] # (Auto) 0.4 Eos # (Auto) 0.1 Baso # (Auto) 0.01 Sodium 136 Potassium 4.4 Chloride 100 Carbon Dioxide 28 Anion Gap 12 BUN 2 L Creatinine 0.5 L Est GFR ( Amer) > 60 Est GFR (Non-Af Amer) > 60 Random Glucose 109 Calcium 9.5 Phosphorus 3.8 Magnesium 1.7 Total Bilirubin 0.7 AST 61 H D ALT 47 Alkaline Phosphatase 121 Total Protein 8.1 Albumin 4.1 Globulin 4.0 Albumin/Globulin Ratio 1.0 L Lipase 428 H Attending/Attestation - Attestation I have personally seen and examined this patient.: Yes I have fully participated in the care of the patient.: Yes I have reviewed all pertinent clinical information: Yes
[2018-05-27] MEDS: Sodium Chloride 0.9% 1,000 ML IV SCH ×2 (04:29→22:09)
[2018-05-27] MEDS: Pantoprazole 40 mg EC Tab PO SCH (05:39)
[2018-05-27 06:58] LABS: BASO # 0.02 K/mm3 (0.0-2.0); BASO % 0.3 % (0.0-3.0); EOS # 0.1 (0.0-0.7); GRAN # 4.55 (1.4-6.5); GRAN % 63.8 % (50.0-68.0); HEMOGLOBIN 10.1 g/dL (12.0-16.0); LYMPH # 2.1 (1.2-3.4); MEAN CELL VOLUME 95.5 fl (80.0-105.0); MEAN CORPUSCULAR HEMOGLOBIN 30.6 pg (25.0-35.0); MEAN CORPUSCULAR HGB CONC 32.1 g/dl (31.0-37.0); MEAN PLATELET VOLUME 8.9 fl (7.0-11.0); MONO # 0.4 (0.1-0.6); MONO % 5.9 % (1.0-6.0); RBC 3.3 10^6/uL (3.5-6.1); RED CELL DISTRIBUTION WIDTH 20.2 % (11.5-14.5); WHITE BLOOD COUNT 7.1 10^3/uL (4.5-11.0)
[2018-05-27 07:16] LABS: LDL CHOLESTEROL 115 mg/dL (0-129)
[2018-05-27 07:17] LABS: ALBUMIN 3.6 g/dL (3.0-4.8); ALT/SGPT 39 U/L (7-56); AST/SGOT 48 U/L (14-36); BLOOD UREA NITROGEN < 2 mg/dL (7-21); CALCIUM 8.5 mg/dL (8.4-10.5); GFR NON-AFRICAN AMERICAN > 60; HDL CHOLESTEROL 53 mg/dL (29-60)
[2018-05-27] MEDS: Oxycodone/Acetaminophen 5/325 mg Tab PO PRN ×3 (08:43→23:36)
[2018-05-27] MEDS ORDERED: Enoxaparin 40 mg Syringe SC SCH (10:00)
--- NOTE | 2018-05-27 11:38 | US ---
Date of service: 05/27/2018 HISTORY: epigastric and RUQ abdominal pain COMPARISON: None. TECHNIQUE: Sonographic evaluation of the right upper quadrant of the abdomen. FINDINGS: LIVER: Measures 17.1 cm in length. Hepatopedal blood flow. Fatty infiltration manifest ultrasonographically as increased echogenicity of the liver parenchyma. No mass. No intrahepatic bile duct dilatation. GALLBLADDER: Unremarkable. No gallstones. COMMON BILE DUCT: Measures 6.3 mm. No stones. No dilatation. PANCREAS: Unremarkable as visualized. No mass. No ductal dilatation. RIGHT KIDNEY: Measures 5.2 x 12.6 cm in length. Normal echogenicity. No calculus, mass, or hydronephrosis. AORTA: No aneurysmal dilatation. IVC: Unremarkable. OTHER FINDINGS: None . IMPRESSION: No acute findings related to/accounting for the clinical presentation. Hepatic steatosis. Concordant results (preliminary interpretation) provided by [employer]. Procedure Completed: 01:23. Preliminary Report: Dictated and Authenticated: 09:00. Final Interpretation: 11:34. May 27, 2018
--- NOTE | 2018-05-27 17:19 | CP.PCM.PN ---
<Parminder Lemus - Last Filed: 05/27/18 17:16> Subjective - Date & Time of Evaluation Date of Evaluation: 05/27/18 Time of Evaluation: 08:45 - Subjective Subjective: PGY-1 Medicine Progress Note for Dr. Ledesma Patient seen and examined at bedside this AM. No acute events reported overnight. Continues to endorse mild epigastric abdominal pain, denies any radiation of pain. Has some nausea but denies any vomiting, diarrhea, co nstipation. No other acute complaints at this time. Objective - Vital Signs/Intake and Output Vital Signs (last 24 hours): Temp Pulse Resp BP Pulse Ox 97.9 F 83 20 140/97 H 100 05/27/18 08:51 05/27/18 08:51 05/27/18 08:51 05/27/18 08:51 05/27/18 08:51 - Medications Medications: Current Medications Sodium Chloride (Sodium Chloride 0.9%) 1,000 mls @ 100 mls/hr IV .Q10H [facility] Last Admin: 05/27/18 04:29 Dose: 100 mls/hr Lorazepam (Ativan) 1 mg IVP Q4H PRN; Protocol PRN Reason: Anxiety Last Admin: 05/27/18 12:21 Dose: 1 mg Ondansetron HCl (Zofran Inj) 4 mg IVP Q6H PRN PRN Reason: Nausea/Vomiting Oxycodone/Acetaminophen (Percocet 5/325 Mg Tab) 1 tab PO Q4 PRN PRN Reason: Pain, moderate (4-7) Stop: 05/30/18 06:01 Last Admin: 05/27/18 08:43 Dose: 1 tab Pantoprazole Sodium (Protonix Ec Tab) 40 mg PO 0600 [facility] Last Admin: 05/27/18 05:39 Dose: 40 mg - Labs Labs: 05/27/18 06:00 05/27/18 06:00 - Constitutional Appears: Non-toxic, No Acute Distress - Head Exam Head Exam: ATRAUMATIC, NORMAL INSPECTION, NORMOCEPHALIC - Eye Exam Eye Exam: EOMI, Normal appearance - ENT Exam ENT Exam: Mucous Membranes Moist, Normal Exam - Neck Exam Neck Exam: Full ROM, Normal Inspection - Respiratory Exam Respiratory Exam: Clear to Ausculation Bilateral, NORMAL BREATHING PATTERN. absent: Accessory Muscle Use, Rales, Rhonchi, Wheezes, Respiratory Distress, Stridor - Cardiovascular Exam Cardiovascular Exam: REGULAR RHYTHM, +S1, +S2 - GI/Abdominal Exam GI & Abdominal Exam: Soft, Tenderness (mild TTP epigastrium), Normal Bowel Sounds. absent: Distended, Firm, Guarding, Rigid, Organomegaly, Rebound - Extremities Exam Extremities Exam: Full ROM, Normal Capillary Refill, Normal Inspection. absent: Calf Tenderness, Joint Swelling, Pedal Edema - Back Exam Back Exam: NORMAL INSPECTION - Neurological Exam Neurological Exam: Alert, Awake - Psychiatric Exam Psychiatric exam: Normal Affect, Normal Mood - Skin Skin Exam: Dry, Intact, Normal Color, Warm Assessment and Plan - Assessment and Plan (Free Text) Assessment: 28 yo F with PMH of pancreatitis, alcohol abuse, and hydradenitis suppurativa is admitted for intractable epigastric abdominal pain, likely 2/2 pancreatitis. Plan: Epigastric abdominal pain -Likely secondary to residual pancreatitis -Lipase mildly elevated at 428 -percocet 5/325 q4h PRN -Zofran q6h PRN -advance diet to full liquid for lunch, soft if pt tolerates; continue to monitor Hx alcohol abuse CIWA protocol Ativan q4h PRN for anxiety/agitation PPx, Diet, Disposition -DVT: SCD -GI: protonix -Full Code -Diet: soft HHD -Dispo: advanced diet over course of diet which patient is tolerating. Continue to monitor overnight, likely d/c tomorrow Case discussed with Dr. Baltazar Lemus DO, PGY-1 <Mayelin Ledesma - Last Filed: 05/28/18 15:49> Objective - Vital Signs/Intake and Output Vital Signs (last 24 hours): Temp Pulse Resp BP Pulse Ox 97.7 F 71 16 143/76 98 05/28/18 08:51 05/28/18 08:51 05/28/18 08:51 05/28/18 08:51 05/28/18 08:51 Intake and Output: 05/28/18 05/28/18 06:59 18:59 Intake Total 2920 Balance 2920 - Medications Medications: Current Medications Lorazepam (Ativan) 1 mg IVP Q4H PRN; Protocol PRN Reason: Anxiety Last Admin: 05/28/18 10:12 Dose: 1 mg Ondansetron HCl (Zofran Inj) 4 mg IVP Q6H PRN PRN Reason: Nausea/Vomiting Oxycodone/Acetaminophen (Percocet 5/325 Mg Tab) 1 tab PO Q4 PRN PRN Reason: Pain, moderate (4-7) Stop: 05/30/18 06:01 Last Admin: 05/28/18 09:08 Dose: 1 tab Pantoprazole Sodium (Protonix Ec Tab) 40 mg PO 0600 [facility] Last Admin: 05/28/18 05:19 Dose: 40 mg - Labs Labs: 05/28/18 06:00 05/28/18 06:00 Attending/Attestation - Attestation I have personally seen and examined this patient.: Yes I have fully participated in the care of the patient.: Yes I have reviewed all pertinent clinical information, including history, physical exam and plan: Yes Notes (Text): 05/28/18 15:46 Medical record note made by the resident after discussion with my direction and input after the patient was personally seen and examined by me. I have reviewed the chart and agree that the record accurately reflects by personal performance of the history, physical exam, data review, and medical decision-making, in the course for the patient. I have also personally directed the plan of care. 28 F with PMH of alcohol abuse, was recently treated for Pancreatitis at [facility] [place] was admitted with epigastric pain, lipase is 428 only, Patient has epigastric mild tenderness, Right upper quadrant USG is unremarkable.Patient likely has Gastritis.We will start patient on liquid diet and will advance gradually. Management plan was discussed in detail with patient Education was provided. 1
[2018-05-27 22:37] LABS: PH,URINE 6.5 (4.7-8.0); URINE BILIRUBIN NEGATIVE (NEGATIVE); URINE BLOOD NEGATIVE (NEGATIVE); URINE GLUCOSE (UA) NEGATIVE (NEGATIVE); URINE LEUKOCYTE ESTERASE NEGATIVE Leu/uL (NEGATIVE); URINE PROTEIN NEGATIVE mg/dL (<30 mg/dL); URINE UROBILINOGEN 0.2 E.U./dL (<1 E.U./dL)
[2018-05-27 22:43] LABS: OPIATES, UR NEGATIVE (NEGATIVE)
[2018-05-27 22:49] LABS: URINE APPEARANCE CLEAR (CLEAR); URINE COLOR YELLOW (YELLOW)
[2018-05-27 22:58] LABS: BARBITURATES, UR NEGATIVE (NEGATIVE); BENZODIAZEPINES, UR NEGATIVE (NEGATIVE); PHENCYCLIDINE, UR NEGATIVE (NEGATIVE)
[2018-05-28] MEDS: Oxycodone/Acetaminophen 5/325 mg Tab PO PRN ×4 (04:56→22:45)
[2018-05-28] MEDS: Pantoprazole 40 mg EC Tab PO SCH (05:19)
[2018-05-28 06:38] LABS: BASO # 0.02 K/mm3 (0.0-2.0); BASO % 0.4 % (0.0-3.0); EOS # 0.1 (0.0-0.7); EOS % 1.1 % (1.5-5.0); GRAN # 2.7 (1.4-6.5); GRAN % 51.1 % (50.0-68.0); HEMOGLOBIN 9.5 g/dL (12.0-16.0); LYMPH # 2.1 (1.2-3.4); LYMPH % 39.5 % (22.0-35.0); MEAN CELL VOLUME 95.2 fl (80.0-105.0); MEAN CORPUSCULAR HEMOGLOBIN 30.4 pg (25.0-35.0); MONO # 0.4 (0.1-0.6); MONO % 7.9 % (1.0-6.0); RBC 3.12 10^6/uL (3.5-6.1); RED CELL DISTRIBUTION WIDTH 20.3 % (11.5-14.5); WHITE BLOOD COUNT 5.3 10^3/uL (4.5-11.0)
[2018-05-28 08:09] LABS: ALBUMIN 3.3 g/dL (3.0-4.8); ALT/SGPT 47 U/L (7-56); AST/SGOT 61 U/L (14-36); BLOOD UREA NITROGEN < 2 mg/dL (7-21); CALCIUM 8.7 mg/dL (8.4-10.5); GFR NON-AFRICAN AMERICAN > 60
--- NOTE | 2018-05-28 16:39 | CP.PCM.PN ---
<Parminder Lemus - Last Filed: 05/28/18 16:34> Subjective - Date & Time of Evaluation Date of Evaluation: 05/28/18 Time of Evaluation: 08:45 - Subjective Subjective: PGY-1 Medicine Progress Note for Dr. Ledesma Patient was seen and examined at bedside this AM. No acute overnight events reported. Patient tolerated full liquid diet at lunch, began to complain of worsening epigastric abdominal pain after eating a hamburger for dinner. Continues to have pain today. Patient states kitchen gave her burger, however diet orders were for soft heart healthy diet. Endorses associated nausea but no vomiting or diarrhea. No other acute complaint at this time. Objective - Vital Signs/Intake and Output Vital Signs (last 24 hours): Temp Pulse Resp BP Pulse Ox 97.7 F 71 16 143/76 98 05/28/18 08:51 05/28/18 08:51 05/28/18 08:51 05/28/18 08:51 05/28/18 08:51 Intake and Output: 05/28/18 05/28/18 06:59 18:59 Intake Total 2920 Balance 2920 - Medications Medications: Current Medications Lorazepam (Ativan) 1 mg IVP Q4H PRN; Protocol PRN Reason: Anxiety Last Admin: 05/28/18 10:12 Dose: 1 mg Ondansetron HCl (Zofran Inj) 4 mg IVP Q6H PRN PRN Reason: Nausea/Vomiting Oxycodone/Acetaminophen (Percocet 5/325 Mg Tab) 1 tab PO Q4 PRN PRN Reason: Pain, moderate (4-7) Stop: 05/30/18 06:01 Last Admin: 05/28/18 09:08 Dose: 1 tab Pantoprazole Sodium (Protonix Ec Tab) 40 mg PO 0600 [facility] Last Admin: 05/28/18 05:19 Dose: 40 mg - Labs Labs: 05/28/18 06:00 05/28/18 06:00 - Constitutional Appears: Non-toxic - Head Exam Head Exam: ATRAUMATIC, NORMAL INSPECTION, NORMOCEPHALIC - Eye Exam Eye Exam: EOMI, Normal appearance Pupil Exam: NORMAL ACCOMODATION - ENT Exam ENT Exam: Mucous Membranes Moist, Normal Exam - Neck Exam Neck Exam: Full ROM, Normal Inspection - Respiratory Exam Respiratory Exam: Clear to Ausculation Bilateral, NORMAL BREATHING PATTERN. absent: Accessory Muscle Use, Rales, Rhonchi, Wheezes, Respiratory Distress, Stridor - Cardiovascular Exam Cardiovascular Exam: REGULAR RHYTHM, +S1, +S2 - GI/Abdominal Exam GI & Abdominal Exam: Soft, Tenderness (TTP epigastrium), Normal Bowel Sounds. a bsent: Distended, Firm, Guarding, Rigid, Organomegaly, Rebound - Extremities Exam Extremities Exam: Full ROM, Normal Capillary Refill, Normal Inspection. absent: Calf Tenderness, Joint Swelling - Back Exam Back Exam: NORMAL INSPECTION - Neurological Exam Neurological Exam: Alert, Awake, Normal Gait, Oriented x3 - Psychiatric Exam Psychiatric exam: Flat Affect, Normal Mood - Skin Skin Exam: Dry, Intact, Normal Color, Warm Assessment and Plan - Assessment and Plan (Free Text) Assessment: 28 yo F with PMH of pancreatitis, alcohol abuse, and hydradenitis suppurativa is admitted for intractable epigastric abdominal pain, likely 2/2 pancreatitis. Plan: Intractable epigastric abdominal pain -Likely secondary to chronic pancreatitis -abdominal pain exacerbated after eating hamburger for dinner night prior, continues to have pain this AM -Lipase mildly elevated at 428 -patient on soft, heart healthy diet; educated on importance of avoiding fatty foods -GI (Dr. Magana) consult on board -f/u CT abdomen w/contrast -urine test prior to CT scan -percocet 5/325 q4h PRN -Zofran q6h PRN Hx alcohol abuse CIWA protocol Ativan q4h PRN for anxiety/agitation PPx, Diet, Disposition -DVT ppx: SCD -GI ppx: protonix -Diet: soft HHD Case discussed with Dr. Baltazar Lemus DO, PGY-1 <Mayelin Ledesma - Last Filed: 05/28/18 17:18> Objective - Vital Signs/Intake and Output Vital Signs (last 24 hours): Temp Pulse Resp BP Pulse Ox 97.2 F L 75 20 140/96 H 100 05/28/18 17:05 05/28/18 17:05 05/28/18 17:05 05/28/18 17:05 05/28/18 17:05 Intake and Output: 05/28/18 05/28/18 06:59 18:59 Intake Total 2920 Balance 2920 - Medications Medications: Current Medications Lorazepam (Ativan) 1 mg IVP Q4H PRN; Protocol PRN Reason: Anxiety Last Admin: 05/28/18 10:12 Dose: 1 mg Ondansetron HCl (Zofran Inj) 4 mg IVP Q6H PRN PRN Reason: Nausea/Vomiting Oxycodone/Acetaminophen (Percocet 5/325 Mg Tab) 1 tab PO Q4 PRN PRN Reason: Pain, moderate (4-7) Stop: 05/30/18 06:01 Last Admin: 05/28/18 09:08 Dose: 1 tab Pantoprazole Sodium (Protonix Ec Tab) 40 mg PO 0600 [facility] Last Admin: 05/28/18 05:19 Dose: 40 mg - Labs Labs: 05/28/18 06:00 05/28/18 06:00 Attending/Attestation - Attestation I have personally seen and examined this patient.: Yes I have fully participated in the care of the patient.: Yes I have reviewed all pertinent clinical information, including history, physical exam and plan: Yes Notes (Text): 05/28/18 17:15 Medical record note made by the resident after discussion with my direction and input after the patient was personally seen and examined by me. I have reviewed the chart and agree that the record accurately reflects by personal performance of the history, physical exam, data review, and medical decision-making, in the course for the patient. I have also personally directed the plan of care. 28 F with PMH of alcohol abuse, was recently treated for Pancreatitis at [facility] was admitted with epigastric pain, lipase only in 400,Patient has epigastric tenderness likely Gastritis,Patient is not tolerating food, we will get CT scan of abdomen and Pelvis and will also get GI is consulted for possible EGD. Anemia is likely dilutional , will monitor hemoglobin and hematocrit.We will check reticulocyte count and iron panel. Management plan was discussed in detail with patient. Education was provided 05/28/18 17:17
[2018-05-28] MEDS ORDERED: Iohexol 240 (50 ml) ONE (19:19)
[2018-05-29] MEDS: Pantoprazole 40 mg EC Tab PO SCH (05:15)
[2018-05-29] MEDS: Oxycodone/Acetaminophen 5/325 mg Tab PO PRN ×3 (05:52→22:00)
[2018-05-29 06:22] LABS: BASO # 0.01 K/mm3 (0.0-2.0); BASO % 0.1 % (0.0-3.0); EOS # 0.1 (0.0-0.7); GRAN # 3.93 (1.4-6.5); GRAN % 58.9 % (50.0-68.0); HEMOGLOBIN 10.5 g/dL (12.0-16.0); LYMPH # 2.1 (1.2-3.4); LYMPH % 31.2 % (22.0-35.0); MEAN CELL VOLUME 94.3 fl (80.0-105.0); MEAN CORPUSCULAR HEMOGLOBIN 31.3 pg (25.0-35.0); MEAN CORPUSCULAR HGB CONC 33.2 g/dl (31.0-37.0); MEAN PLATELET VOLUME 9.1 fl (7.0-11.0); MONO # 0.6 (0.1-0.6); MONO % 8.8 % (1.0-6.0); RBC 3.35 10^6/uL (3.5-6.1); RED CELL DISTRIBUTION WIDTH 20.4 % (11.5-14.5); WHITE BLOOD COUNT 6.7 10^3/uL (4.5-11.0)
[2018-05-29 06:39] LABS: ALB/GLOB RATIO 1.1 (1.1-1.8); ALBUMIN 3.7 g/dL (3.0-4.8); ALT/SGPT 41 U/L (7-56); AST/SGOT 56 U/L (14-36); BLOOD UREA NITROGEN 5 mg/dL (7-21); CALCIUM 9.8 mg/dL (8.4-10.5); GFR NON-AFRICAN AMERICAN > 60
[2018-05-29 06:41] LABS: IRON 20 ug/dL (45-180)
[2018-05-29 06:50] LABS: % IRON SATURATION 6 % (20-55); TOTAL IRON BINDING CAPACITY 337 ug/dL (265-497)
[2018-05-29 06:57] VITALS: O2SAT 98
--- NOTE | 2018-05-29 10:24 | CT ---
Date of service: 05/28/2018 PROCEDURE: CT Abdomen and Pelvis without intravenous contrast HISTORY: intractable epigastric pain, hx pancreatitis COMPARISON: None. TECHNIQUE: Technique. Contrast dose: Radiation dose: Total exam DLP = 257.67 mGy-cm. This CT exam was performed using one or more of the following dose reduction techniques: Automated exposure control, adjustment of the mA and/or kV according to patient size, and/or use of iterative reconstruction technique. FINDINGS: LOWER THORAX: Clear. LIVER: Fatty liver. No gross lesion or ductal dilatation. GALLBLADDER AND BILE DUCTS: Unremarkable. PANCREAS: Question slight haziness surrounding the pancreas; correlate for pancreatitis. No gross lesion or ductal dilatation. SPLEEN: Unremarkable. ADRENALS: Unremarkable. No mass. KIDNEYS AND URETERS: Unremarkable. No hydronephrosis. No solid mass. VASCULATURE: Unremarkable. No aortic aneurysm. No aortic atherosclerotic calcification or mural plaque present. BOWEL: Unremarkable. No obstruction. No gross mural thickening. APPENDIX: Unremarkable. Normal appendix. PERITONEUM: Unremarkable. No free fluid. No free air. LYMPH NODES: Unremarkable. No enlarged lymph nodes. BLADDER: Unremarkable. REPRODUCTIVE: Unremarkable. BONES: No acute fracture. OTHER FINDINGS: None. IMPRESSION: Question slight haziness surrounding the pancreas; correlate for pancreatitis.
--- NOTE | 2018-05-29 10:47 | CP.PCM.CON ---
<Brijesh Chavez - Last Filed: 05/29/18 12:06> History of Present Illness - History of Present Illness History of Present Illness: PGY-2 GI consult note for Dr Magana consult reason: intractable abdominal pain Ms. Merlos is a 28 year old female with PMHx of pancreatitis, alcohol abuse, and hydradenitis suppurativa who presents to ED with worsening epigastric abdominal pain. She states that this abdominal pain started about a week ago. She was admitted at [facility] for the same complaint and states she left there 1 week ago after being treated for pancreatitis. Since then she states the pain has not improved and has continued to get worse. She admitted to consuming alcohol since being discharged from [facility] but denied using other drugs since leaving [facility] 1 week ago. She describes the pain as an intermittent, sharp, stabbing type pain that radiates to her back and lower chest. The pain is worse in the epigastric region. She states nothing has helped with the pain, including OTC tums and m ylanta. She has recently been receiving percocet for her pain which is helping her - she also received 1 dose of toradol which helped. She is now eating a regular diet with minimal abdominal pain. PMD: none Past Medical Hx: pancreatitis, alcohol abuse, and hydradenitis suppurativa Past Surgical Hx: b/l axilla abscess removal from hydradenitis suppurativa Allergies: NKA Home medications: no home meds Family Hx: reviewed, non-contributory Social Hx: admits to smoking cigarettes about 10 cigarettes per day for the past 10 years. She admits to drinking about 1/2 pint of vodka daily, she denies il licit drug use Review of Systems - Review of Systems All systems: reviewed and no additional remarkable complaints except (as stated in HPI) Past Patient History - Infectious Disease Hx of Infectious Diseases: None - Tetanus Immunizations Tetanus Immunization: Unknown - Past Medical History & Family History Past Medical History?: Yes - Past Social History Smoking Status: Light Smoker < 10 Cigarettes Daily - CARDIAC Hx Cardiac Disorders: No - PULMONARY Hx Respiratory Disorders: No - NEUROLOGICAL Hx Neurological Disorder: No - HEENT Hx HEENT Problems: No - RENAL Hx Chronic Kidney Disease: No - ENDOCRINE/METABOLIC Hx Endocrine Disorders: No - HEMATOLOGICAL/ONCOLOGICAL Hx Blood Disorders: No - INTEGUMENTARY Hx Dermatological Problems: No - MUSCULOSKELETAL/RHEUMATOLOGICAL Hx Musculoskeletal Disorders: No - GASTROINTESTINAL Hx Gastrointestinal Disorders: Yes Hx Pancreatitis: Yes - GENITOURINARY/GYNECOLOGICAL Hx Genitourinary Disorders: No - PSYCHIATRIC Hx Psychophysiologic Disorder: No Hx Substance Use: No - SURGICAL HISTORY Other/Comment: Cyst removal / ABCESS bilat armpit - ANESTHESIA Hx Anesthesia: Yes Hx Anesthesia Reactions: No Hx Malignant Hyperthermia: No Meds Home Medications: Home Medication List Medication Instructions Recorded Confirmed Type Famotidine [Pepcid] 20 mg PO DAILY #30 tab 05/27/18 Rx Folic Acid 1 mg PO DAILY #30 tab 05/27/18 Rx Multivitamin [Multivitamins] 1 each PO DAILY #30 capsule 05/27/18 Rx Thiamine [Vitamin B1 Tab] 100 mg PO DAILY #30 tab 05/27/18 Rx Allergies/Adverse Reactions: Allergies Allergy/AdvReac Type Severity Reaction Status Date / Time No Known Allergies Allergy Verified 05/27/18 00:44 - Medications Medications: Current Medications Lorazepam (Ativan) 1 mg IVP Q4H PRN; Protocol PRN Reason: Anxiety Last Admin: 05/29/18 09:08 Dose: 1 mg Ondansetron HCl (Zofran Inj) 4 mg IVP Q6H PRN PRN Reason: Nausea/Vomiting Oxycodone/Acetaminophen (Percocet 5/325 Mg Tab) 1 tab PO Q4 PRN PRN Reason: Pain, moderate (4-7) Stop: 05/30/18 06:01 Last Admin: 05/29/18 05:52 Dose: 1 tab Pantoprazole Sodium (Protonix Ec Tab) 40 mg PO 0600 YUDI Last Admin: 05/29/18 05:15 Dose: 40 mg Physical Exam - Additional Findings Additional findings: - Constitutional Appears: Non-toxic, No Acute Distress - Head Exam Head Exam: ATRAUMATIC, NORMOCEPHALIC - Eye Exam Eye Exam: EOMI, Normal appearance, PERRL - ENT Exam ENT Exam: Mucous Membranes Moist - Neck Exam Neck exam: Positive for: Full Rom, Normal Inspection. Negative for: Tenderness - Respiratory Exam Respiratory Exam: Clear to Auscultation Bilateral. absent: Accessory Muscle Use, Chest Wall Tenderness, Rales, Rhonchi, Wheezes, Respiratory Distress - Cardiovascular Exam Cardiovascular Exam: REGULAR RHYTHM, RRR, +S1, +S2. absent: Diastolic murmur, Gallop, Rubs, Systolic Murmur - GI/Abdominal Exam GI & Abdominal Exam: Normal Bowel Sounds, Soft, Tenderness (mild tenderness to palpation epigastric region). absent: Firm, Guarding, Organomegaly, Rebound - Extremities Exam Extremities exam: Positive for: normal inspection. Negative for: pedal edema - Back Exam Back exam: FULL ROM, NORMAL INSPECTION - Neurological Exam Neurological exam: Alert, Normal Gait, Oriented x3 - Psychiatric Exam Psychiatric exam: Calm - Skin Skin Exam: Dry, Intact, Warm Results - Vital Signs Recent Vital Signs: Last Vital Signs Temp 98.1 F 05/29/18 06:00 Pulse 65 05/29/18 06:00 Resp 20 05/29/18 06:00 BP 146/96 H 05/29/18 06:00 Pulse Ox 98 05/29/18 06:00 - Labs Result Diagrams: 05/29/18 06:00 05/29/18 06:00 Labs: Laboratory Results - last 24 hr 05/28/18 05/29/18 05/29/18 18:25 06:00 06:00 WBC 6.7 D RBC 3.35 L Hgb 10.5 L Hct 31.6 L MCV 94.3 MCH 31.3 MCHC 33.2 RDW 20.4 H Plt Count 341 MPV 9.1 Gran % 58.9 Lymph % (Auto) 31.2 [place] % (Auto) 8.8 H Eos % (Auto) 1.0 L Baso % (Auto) 0.1 Gran # 3.93 Lymph # (Auto) 2.1 [place] # (Auto) 0.6 Eos # (Auto) 0.1 Baso # (Auto) 0.01 Retic Count Sodium 137 Potassium 3.6 Chloride 99 Carbon Dioxide 30 Anion Gap 13 BUN 5 L Creatinine 0.6 L Est GFR ( Amer) > 60 Est GFR (Non-Af Amer) > 60 Random Glucose 125 H Calcium 9.8 Iron TIBC % Saturation Total Bilirubin 0.4 AST 56 H ALT 41 Alkaline Phosphatase 96 Total Protein 7.1 Albumin 3.7 Globulin 3.3 Albumin/Globulin Ratio 1.1 Urine HCG, Qual Negative 05/29/18 05/29/18 06:00 06:00 WBC RBC Hgb Hct MCV MCH MCHC RDW Plt Count MPV Gran % Lymph % (Auto) [place] % (Auto) Eos % (Auto) Baso % (Auto) Gran # Lymph # (Auto) [place] # (Auto) Eos # (Auto) Baso # (Auto) Retic Count 3.37 H Sodium Potassium Chloride Carbon Dioxide Anion Gap BUN Creatinine Est GFR ( Amer) Est GFR (Non-Af Amer) Random Glucose Calcium Iron 20 L TIBC 337 % Saturation 6 L Total Bilirubin AST ALT Alkaline Phosphatase Total Protein Albumin Globulin Albumin/Globulin Ratio Urine HCG, Qual Assessment & Plan - Assessment and Plan (Free Text) Plan: Ms. Merlos is a 28 year old female with PMHx of pancreatitis, alcohol abuse, and hydradenitis suppurativa who presents to ED with worsening epigastric abdominal pain: Epigastric Abdominal Pain -likely secondary to pancreatitis as patient drinks etoh daily - last drink 1 day prior to arrival; numerous previous admissions for etoh pancreatitis -lipase 428 -tolerating heart healthy diet * recommend low fat diet -CT abd/pelvis w/ po contrast: * questionable slight haziness surrounding the pancreas, fatty liver, otherwise unremarkable -on percocet q4h prn for pain relief -bolus 1 liter LR followed by LR @ 100cc/hr -alcohol and smoking cessation counseling provided Prior GI procedures: -EGD 01/2018 * non-severe esophagitis, large hiatal hernia Seen and discussed with Dr Magana <Harsha Magana V - Last Filed: 05/29/18 23:12> Meds - Medications Medications: Current Medications Lactated Ringer's (Lactated Ringer's) 1,000 mls @ 100 mls/hr IV .Q10H [facility] Last Admin: 05/29/18 13:44 Dose: 100 mls/hr Lorazepam (Ativan) 1 mg IVP Q4H PRN; Protocol PRN Reason: Anxiety Last Admin: 05/29/18 21:59 Dose: 1 mg Ondansetron HCl (Zofran Inj) 4 mg IVP Q6H PRN PRN Reason: Nausea/Vomiting Oxycodone/Acetaminophen (Percocet 5/325 Mg Tab) 1 tab PO Q4 PRN PRN Reason: Pain, moderate (4-7) Stop: 05/30/18 06:01 Last Admin: 05/29/18 22:00 Dose: 1 tab Pantoprazole Sodium (Protonix Ec Tab) 40 mg PO 0600 [facility] Last Admin: 05/29/18 05:15 Dose: 40 mg Results - Vital Signs Recent Vital Signs: Last Vital Signs Temp 97.6 F 05/29/18 17:19 Pulse 76 05/29/18 17:19 Resp 20 05/29/18 17:19 BP 135/85 05/29/18 17:19 Pulse Ox 98 05/29/18 17:19 - Labs Result Diagrams: 05/29/18 06:00 05/29/18 06:00 Labs: Laboratory Results - last 24 hr 05/29/18 05/29/18 05/29/18 06:00 06:00 06:00 WBC 6.7 D RBC 3.35 L Hgb 10.5 L Hct 31.6 L MCV 94.3 MCH 31.3 MCHC 33.2 RDW 20.4 H Plt Count 341 MPV 9.1 Gran % 58.9 Lymph % (Auto) 31.2 [place] % (Auto) 8.8 H Eos % (Auto) 1.0 L Baso % (Auto) 0.1 Gran # 3.93 Lymph # (Auto) 2.1 [place] # (Auto) 0.6 Eos # (Auto) 0.1 Baso # (Auto) 0.01 Retic Count 3.37 H Sodium 137 Potassium 3.6 Chloride 99 Carbon Dioxide 30 Anion Gap 13 BUN 5 L Creatinine 0.6 L Est GFR ( Amer) > 60 Est GFR (Non-Af Amer) > 60 Random Glucose 125 H Calcium 9.8 Iron TIBC % Saturation Ferritin 30.4 Total Bilirubin 0.4 AST 56 H ALT 41 Alkaline Phosphatase 96 Total Protein 7.1 Albumin 3.7 Globulin 3.3 Albumin/Globulin Ratio 1.1 05/29/18 06:00 WBC RBC Hgb Hct MCV MCH MCHC RDW Plt Count MPV Gran % Lymph % (Auto) [place] % (Auto) Eos % (Auto) Baso % (Auto) Gran # Lymph # (Auto) [place] # (Auto) Eos # (Auto) Baso # (Auto) Retic Count Sodium Potassium Chloride Carbon Dioxide Anion Gap BUN Creatinine Est GFR ( Amer) Est GFR (Non-Af Amer) Random Glucose Calcium Iron 20 L TIBC 337 % Saturation 6 L Ferritin Total Bilirubin AST ALT Alkaline Phosphatase Total Protein Albumin Globulin Albumin/Globulin Ratio Attending/Attestation - Attestation I have personally seen and examined this patient.: Yes I have fully participated in the care of the patient.: Yes I have reviewed all pertinent clinical information: Yes Notes (Text): This is an addendum to GI consult report dictated by the Data Security Consultant.The patient was seen and evaluated earlier. Medical records, lab studies, imagings were reviewed. Last 24 hours events reviewed. Agreed with the above treatment plan as outlined in Data Security Consultant 's notes with the addition of the following This 28 year old patient with abdominal pain History of active EtOH CT revealed large amount of stop in the rectum Haziness around the pancreas Recommend laxative to clear out the bowls Advised to avoid alcohol Recommend laxatives Slowly advance the diet 05/29/18 23:10
[2018-05-29 11:50] LABS: FERRITIN 30.4 ng/mL
[2018-05-29] MEDS ORDERED: Lactated Ringer's 1,000 ML IV SCH ×2 (12:15)
--- NOTE | 2018-05-29 13:14 | CP.PCM.DIS ---
Provider - Provider Date of Admission: 05/27/18 17:24 Attending physician: Vivi Garsia MD Time Spent in preparation of Discharge (in minutes): 40 Hospital Course - Lab Results Lab Results: Most Recent Lab Values WBC 6.7 10^3/uL (4.5-11.0) D 05/29/18 06:00 RBC 3.35 10^6/uL (3.5-6.1) L 05/29/18 06:00 Hgb 10.5 g/dL (12.0-16.0) L 05/29/18 06:00 Hct 31.6 % (36.0-48.0) L 05/29/18 06:00 MCV 94.3 fl (80.0-105.0) 05/29/18 06:00 MCH 31.3 pg (25.0-35.0) 05/29/18 06:00 MCHC 33.2 g/dl (31.0-37.0) 05/29/18 06:00 RDW 20.4 % (11.5-14.5) H 05/29/18 06:00 Plt Count 341 10^3/uL (120.0-450.0) 05/29/18 06:00 MPV 9.1 fl (7.0-11.0) 05/29/18 06:00 Gran % 58.9 % (50.0-68.0) 05/29/18 06:00 Lymph % (Auto) 31.2 % (22.0-35.0) 05/29/18 06:00 [place] % (Auto) 8.8 % (1.0-6.0) H 05/29/18 06:00 Eos % (Auto) 1.0 % (1.5-5.0) L 05/29/18 06:00 Baso % (Auto) 0.1 % (0.0-3.0) 05/29/18 06:00 Gran # 3.93 (1.4-6.5) 05/29/18 06:00 Lymph # (Auto) 2.1 (1.2-3.4) 05/29/18 06:00 [place] # (Auto) 0.6 (0.1-0.6) 05/29/18 06:00 Eos # (Auto) 0.1 (0.0-0.7) 05/29/18 06:00 Baso # (Auto) 0.01 K/mm3 (0.0-2.0) 05/29/18 06:00 Retic Count 3.37 % (0.5-1.5) H 05/29/18 06:00 Sodium 137 mmol/L (132-148) 05/29/18 06:00 Potassium 3.6 mmol/L (3.6-5.0) 05/29/18 06:00 Chloride 99 mmol/L (98-107) 05/29/18 06:00 Carbon Dioxide 30 mmol/L (21-33) 05/29/18 06:00 Anion Gap 13 (10-20) 05/29/18 06:00 BUN 5 mg/dL (7-21) L 05/29/18 06:00 Creatinine 0.6 mg/dl (0.7-1.2) L 05/29/18 06:00 Est GFR ( Amer) > 60 05/29/18 06:00 Est GFR (Non-Af Amer) > 60 05/29/18 06:00 Random Glucose 125 mg/dL (70-110) H 05/29/18 06:00 Hemoglobin A1c 5.5 % (4.2-6.5) 05/27/18 06:00 Calcium 9.8 mg/dL (8.4-10.5) 05/29/18 06:00 Phosphorus 3.4 mg/dL (2.5-4.5) 05/27/18 06:00 Magnesium 1.6 mg/dL (1.7-2.2) L 05/27/18 06:00 Iron 20 ug/dL (45-180) L 05/29/18 06:00 TIBC 337 ug/dL (265-497) 05/29/18 06:00 % Saturation 6 % (20-55) L 05/29/18 06:00 Ferritin 30.4 ng/mL 05/29/18 06:00 Total Bilirubin 0.4 mg/dL (0.2-1.3) 05/29/18 06:00 AST 56 U/L (14-36) H 05/29/18 06:00 ALT 41 U/L (7-56) 05/29/18 06:00 Alkaline Phosphatase 96 U/L (38-126) 05/29/18 06:00 Total Protein 7.1 g/dL (5.8-8.3) 05/29/18 06:00 Albumin 3.7 g/dL (3.0-4.8) 05/29/18 06:00 Globulin 3.3 gm/dL 05/29/18 06:00 Albumin/Globulin Ratio 1.1 (1.1-1.8) 05/29/18 06:00 Triglycerides 127 mg/dL (35-160) 05/27/18 06:00 Cholesterol 188 mg/dL (130-200) 05/27/18 06:00 LDL Cholesterol Direct 115 mg/dL (0-129) 05/27/18 06:00 HDL Cholesterol 53 mg/dL (29-60) 05/27/18 06:00 Lipase 428 U/L (23-300) H 05/27/18 02:20 TSH 3rd Generation 0.69 mIU/mL (0.46-4.68) 05/27/18 06:00 Urine Color Yellow (YELLOW) 05/27/18: Urine Appearance Clear (CLEAR) 05/27/18 22:18 Urine pH 6.5 (4.7-8.0) 05/27/18 22:18 Ur Specific [place] 1.010 (1.005-1.035) 05/27/18:18 Urine Protein Negative mg/dL (<30 mg/dL) 05/27/18 22:18 Urine Glucose (UA) Negative mg/dL (NEGATIVE) 05/27/18 22:18 Urine Ketones Negative mg/dL (NEGATIVE) 05/27/18: Urine Blood Negative (NEGATIVE) 05/27/18 22:18 Urine Nitrate Negative (NEGATIVE) 05/27/18 22:18 Urine Bilirubin Negative (NEGATIVE) 05/27/18 22:18 Urine Urobilinogen 0.2 E.U./dL (<1 E.U./dL) 05/27/18:18 Ur Leukocyte Esterase Negative Carole/uL (NEGATIVE) 05/27/18 22: Urine HCG, Qual Negative (NEGATIVE) 05/28/18 18:25 Urine Opiates Screen Negative (NEGATIVE) 05/27/18 22:18 Urine Methadone Screen Negative (NEGATIVE) 05/27/18 22:18 Ur Barbiturates Screen Negative (NEGATIVE) 05/27/18 22:18 Ur Phencyclidine Scrn Negative (NEGATIVE) 05/27/18 22:18 Ur Amphetamines Screen Negative (NEGATIVE) 05/27/18 22:18 U Benzodiazepines Scrn Negative (NEGATIVE) 05/27/18 22:18 U Oth Cocaine Metabols Negative (NEGATIVE) 05/27/18 22:18 U Cannabinoids Screen Negative (NEGATIVE) 05/27/18 22:18 Alcohol, Quantitative < 10 mg/dL (0-10) 05/27/18 06:00 - Hospital Course Hospital Course: HPI: Ms. Merlos is a 28 year old female with PMH of pancreatitis, alcohol abuse, and hydradenitis suppurativa who presents to ED with worsening epigastric abdominal pain. She states that this abdominal pain started about a week ago. She was admitted at [facility] for the same complaint and states she left there Friday after being treated for pancreatitis. Since then she states the pain has not improved and has continued to get worse. She denies having any alcoholic beverages or other drugs since leaving [facility] on Friday. She describes the pain as an intermittent, sharp, stabbing type pain that radiates to her back and lower chest. The pain is worse in the epigastric region. She states nothing has helped with the pain, including OTC tums and mylanta. Aside from the abdominal pain, she denies fever/chills, mid-sternal CP, SOB, dyspnea on exertion, cough, congestion, JULES, blurred vision, or peripheral numbness/tingling. During the course of admission: Lipase was only mildly elevated at 428. Patient's diet was slowly advanced from full liquid to soft heart healthy, which patient tolerated well with no new episodes of vomiting/diarrhea/constipation. CT abdomen and pelvis with PO contrast was obtained which demonstrated questionable slight haziness surrounding the pancreas, fatty liver, otherwise unremarkable. She was placed on percocet as needed for pain relief. GI was consulted which recommended low fat diet, alcohol and smoking cessation counseling provided, with outpatient follow up. Prior EGD done on 01/2018 demonstrated non-severed esophagitis, large hiatal hernia. Patient was medically clear for discharge, as per Dr. Garsia. She is instructed to take all medications as prescribed. Please follow up with the [facility] within 1 week of discharge for continued monitoring and medical management. Contact information has been provided below: [facility] [address] [place] [phone] If symptoms worsen, please return to the ED for further care. - Date & Time of H&P Date of H&P: 05/29/18 Time of H&P: 13:07 Discharge Exam - Head Exam Head Exam: ATRAUMATIC, NORMAL INSPECTION, NORMOCEPHALIC - Eye Exam Eye Exam: EOMI, Normal appearance Pupil Exam: NORMAL ACCOMODATION - ENT Exam ENT Exam: Mucous Membranes Moist, Normal Exam - Neck Exam Neck exam: Full Rom, Normal Inspection - Respiratory Exam Respiratory Exam: Clear to PA & Lateral, NORMAL BREATHING PATTERN, UNREMARKABLE. absent: Accessory Muscle Use, Rales, Rhonchi, Wheezes, Respiratory Distress, Stridor - Cardiovascular Exam Cardiovascular Exam: REGULAR RHYTHM, +S1, +S2 - GI/Abdominal Exam GI & Abdominal Exam: Normal Bowel Sounds, Soft, Tenderness (mild TTP epigastrium), Unremarkable. absent: Distended, Firm, Guarding, Hernia, Rebound, Rigid - Extremities Exam Extremities exam: full ROM, normal capillary refill, normal inspection, pedal pulses present - Back Exam Back exam: NORMAL INSPECTION - Neurological Exam Neurological exam: Alert, CN II-XII Intact, Normal Gait, Oriented x3 - Psychiatric Exam Psychiatric exam: Normal Affect, Normal Mood - Skin Skin Exam: Dry, Intact, Normal Color, Warm Discharge Plan - Discharge Medications Prescriptions: Thiamine [Vitamin B1 Tab] 100 mg PO DAILY #30 tab - Follow Up Plan Condition: STABLE Disposition: HOME/ ROUTINE Additional Instructions: Patient is medically stable for discharge to home, as per Dr. Ledesma. Patient to take all medications as prescribed. Please follow up at the [facility] within 1 week of discharge, located on Ground floor, for continued monitoring and medical management. Contact info has been provided below: [facility] [address] [place] [address] If symptoms worsen, please return to ED for further care.
[2018-05-29] MEDS ORDERED: Magnesium Citrate Oral SOL (300 ml) PO ONE (14:31)
--- NOTE | 2018-05-29 14:32 | CP.PCM.PCO ---
Physician Communication Note - Physician Communication Note Physician Communication Note: possible pain component-Significant stool retention-mg citrate once ordered
--- NOTE | 2018-05-29 17:17 | CP.PCM.PN ---
<Parminder Lemus - Last Filed: 05/30/18 07:22> Subjective - Date & Time of Evaluation Date of Evaluation: 05/29/18 Time of Evaluation: 08:45 - Subjective Subjective: PGY-1 Medicine Progress Note for Dr. Garsia Patient seen and examined at bedside this AM. No acute overnight events reported. Patient able to tolerate breakfast this AM with no active vomiting, diarrhea, constipation. Continues to endorse epigastric abdominal pain although slightly improved compared to yesterday. ROS otherwise negative at this time. Objective - Vital Signs/Intake and Output Vital Signs (last 24 hours): Temp Pulse Resp BP Pulse Ox 98.1 F 65 20 146/96 H 98 05/29/18 06:00 05/29/18 06:00 05/29/18 06:00 05/29/18 06:00 05/29/18 06:00 Intake and Output: 05/29/18 05/29/18 06:59 18:59 Intake Total 740 Balance 740 - Medications Medications: Current Medications Lactated Ringer's (Lactated Ringer's) 1,000 mls @ 100 mls/hr IV .Q10H [facility] Last Admin: 05/29/18 13:44 Dose: 100 mls/hr Lorazepam (Ativan) 1 mg IVP Q4H PRN; Protocol PRN Reason: Anxiety Last Admin: 05/29/18 09:08 Dose: 1 mg Ondansetron HCl (Zofran Inj) 4 mg IVP Q6H PRN PRN Reason: Nausea/Vomiting Oxycodone/Acetaminophen (Percocet 5/325 Mg Tab) 1 tab PO Q4 PRN PRN Reason: Pain, moderate (4-7) Stop: 05/30/18 06:01 Last Admin: 05/29/18 12:35 Dose: 1 tab Pantoprazole Sodium (Protonix Ec Tab) 40 mg PO 0600 [facility] Last Admin: 05/29/18 05:15 Dose: 40 mg - Labs Labs: 05/29/18 06:00 05/29/18 06:00 - Constitutional Appears: Non-toxic, No Acute Distress - Head Exam Head Exam: ATRAUMATIC, NORMAL INSPECTION, NORMOCEPHALIC - Eye Exam Eye Exam: EOMI, Normal appearance Pupil Exam: NORMAL ACCOMODATION - ENT Exam ENT Exam: Mucous Membranes Moist, Normal Exam - Neck Exam Neck Exam: Full ROM, Normal Inspection - Respiratory Exam Respiratory Exam: Clear to Ausculation Bilateral, NORMAL BREATHING PATTERN. absent: Accessory Muscle Use, Rales, Rhonchi, Wheezes, Respiratory Distress, Stridor - Cardiovascular Exam Cardiovascular Exam: REGULAR RHYTHM, +S1, +S2 - GI/Abdominal Exam GI & Abdominal Exam: Soft, Tenderness (mild TTP epigastrium), Normal Bowel So unds. absent: Distended, Firm, Guarding, Rigid, Organomegaly, Rebound - Extremities Exam Extremities Exam: Full ROM, Normal Capillary Refill, Normal Inspection - Back Exam Back Exam: NORMAL INSPECTION - Neurological Exam Neurological Exam: Alert, Awake, Normal Gait, Oriented x3 - Psychiatric Exam Psychiatric exam: Normal Affect, Normal Mood - Skin Skin Exam: Dry, Intact, Normal Color, Warm Assessment and Plan - Assessment and Plan (Free Text) Assessment: 28 yo F with PMH of pancreatitis, alcohol abuse, and hydradenitis suppurativa is admitted for intractable epigastric abdominal pain, likely 2/2 pancreatitis. Plan: Intractable epigastric abdominal pain -Likely secondary to chronic pancreatitis -abdominal pain exacerbated after eating hamburger for dinner night prior, cont inues to have pain this AM -Lipase mildly elevated at 428 -patient on soft, heart healthy diet; educated on importance of avoiding fatty foods -CT abdomen w/contrast: questionable slight haziness surrounding the pancreas, fatty liver, otherwise unremarkable. -GI recs appreciated -recommended low fat diet -alcohol and smoking cessation counseling provided -Prior EGD done on 01/2018 demonstrated non-severed esophagitis, large hiatal hernia. -further recs per Dr. Jauregui -percocet 5/325 q4h PRN -Zofran q6h PRN Hx alcohol abuse CIWA protocol Ativan q4h PRN for anxiety/agitation PPx, Diet, Disposition -DVT ppx: SCD -GI ppx: protonix -Diet: soft HHD Case discussed with Dr. Sun Lemus DO, PGY-1 <Vivi Garsia - Last Filed: 05/30/18 07:48> Objective - Vital Signs/Intake and Output Vital Signs (last 24 hours): Temp Pulse Resp BP Pulse Ox 97.6 F 76 20 135/85 98 05/29/18 17:19 05/29/18 17:19 05/29/18 17:19 05/29/18 17:19 05/29/18 17:19 Intake and Output: 05/30/18 05/30/18 06:59 18:59 Intake Total 3840 Balance 3840 - Medications Medications: Current Medications Lactated Ringer's (Lactated Ringer's) 1,000 mls @ 100 mls/hr IV .Q10H [facility] Last Admin: 05/29/18 13:44 Dose: 100 mls/hr Lorazepam (Ativan) 1 mg IVP Q4H PRN; Protocol PRN Reason: Anxiety Last Admin: 05/30/18 03:37 Dose: 1 mg Ondansetron HCl (Zofran Inj) 4 mg IVP Q6H PRN PRN Reason: Nausea/Vomiting Pantoprazole Sodium (Protonix Ec Tab) 40 mg PO 0600 [facility] Last Admin: 05/30/18 05:20 Dose: 40 mg - Labs Labs: 05/29/18 06:00 05/29/18 06:00 Attending/Attestation - Attestation I have personally seen and examined this patient.: Yes I have fully participated in the care of the patient.: Yes I have reviewed all pertinent clinical information, including history, physical exam and plan: Yes Notes (Text): 05/29/18 28 year old female with past medical history of alcohol abuse and pancreatitis who presented with intractable epigastric pain. Admitted for acute on chronic pancreatitis. CT abd/pelvis showed ?slight haziness surrounding the pancreas. Continue with slow diet advancement as tolerated. GI is following and added magnesium citrate for constipation. Likely d/c planning within 24 hrs if symptoms continue to improve. Patient was counselled on alcohol abstinence. Vivi Garsia MD Hospitalist.
[2018-05-30] MEDS: Oxycodone/Acetaminophen 5/325 mg Tab PO PRN (03:37)
[2018-05-30] MEDS: Pantoprazole 40 mg EC Tab PO SCH (05:20)
--- NOTE | 2018-05-30 07:25 | CP.PCM.DIS ---
<Parminder Lemus - Last Filed: 05/30/18 14:36> Provider - Provider Date of Admission: 05/27/18 17:24 Attending physician: Vivi Garsia MD Time Spent in preparation of Discharge (in minutes): 40 Hospital Course - Lab Results Lab Results: Most Recent Lab Values WBC 6.7 10^3/uL (4.5-11.0) D 05/29/18 06:00 RBC 3.35 10^6/uL (3.5-6.1) L 05/29/18 06:00 Hgb 10.5 g/dL (12.0-16.0) L 05/29/18 06:00 Hct 31.6 % (36.0-48.0) L 05/29/18 06:00 MCV 94.3 fl (80.0-105.0) 05/29/18 06:00 MCH 31.3 pg (25.0-35.0) 05/29/18 06:00 MCHC 33.2 g/dl (31.0-37.0) 05/29/18 06:00 RDW 20.4 % (11.5-14.5) H 05/29/18 06:00 Plt Count 341 10^3/uL (120.0-450.0) 05/29/18 06:00 MPV 9.1 fl (7.0-11.0) 05/29/18 06:00 Gran % 58.9 % (50.0-68.0) 05/29/18 06:00 Lymph % (Auto) 31.2 % (22.0-35.0) 05/29/18 06:00 Rawl[place] % (Auto) 8.8 % (1.0-6.0) H 05/29/18 06:00 Eos % (Auto) 1.0 % (1.5-5.0) L 05/29/18 06:00 Baso % (Auto) 0.1 % (0.0-3.0) 05/29/18 06:00 Gran # 3.93 (1.4-6.5) 05/29/18 06:00 Lymph # (Auto) 2.1 (1.2-3.4) 05/29/18 06:00 Rawlins # (Auto) 0.6 (0.1-0.6) 05/29/18 06:00 Eos # (Auto) 0.1 (0.0-0.7) 05/29/18 06:00 Baso # (Auto) 0.01 K/mm3 (0.0-2.0) 05/29/18 06:00 Retic Count 3.37 % (0.5-1.5) H 05/29/18 06:00 Sodium 137 mmol/L (132-148) 05/29/18 06:00 Potassium 3.6 mmol/L (3.6-5.0) 05/29/18 06:00 Chloride 99 mmol/L (98-107) 05/29/18 06:00 Carbon Dioxide 30 mmol/L (21-33) 05/29/18 06:00 Anion Gap 13 (10-20) 05/29/18 06:00 BUN 5 mg/dL (7-21) L 05/29/18 06:00 Creatinine 0.6 mg/dl (0.7-1.2) L 05/29/18 06:00 Est GFR ( Amer) > 60 05/29/18 06:00 Est GFR (Non-Af Amer) > 60 05/29/18 06:00 Random Glucose 125 mg/dL (70-110) H 05/29/18 06:00 Hemoglobin A1c 5.5 % (4.2-6.5) 05/27/18 06:00 Calcium 9.8 mg/dL (8.4-10.5) 05/29/18 06:00 Phosphorus 3.4 mg/dL (2.5-4.5) 05/27/18 06:00 Magnesium 1.6 mg/dL (1.7-2.2) L 05/27/18 06:00 Iron 20 ug/dL (45-180) L 05/29/18 06:00 TIBC 337 ug/dL (265-497) 05/29/18 06:00 % Saturation 6 % (20-55) L 05/29/18 06:00 Ferritin 30.4 ng/mL 05/29/18 06:00 Total Bilirubin 0.4 mg/dL (0.2-1.3) 05/29/18 06:00 AST 56 U/L (14-36) H 05/29/18 06:00 ALT 41 U/L (7-56) 05/29/18 06:00 Alkaline Phosphatase 96 U/L (38-126) 05/29/18 06:00 Total Protein 7.1 g/dL (5.8-8.3) 05/29/18 06:00 Albumin 3.7 g/dL (3.0-4.8) 05/29/18 06:00 Globulin 3.3 gm/dL 05/29/18 06:00 Albumin/Globulin Ratio 1.1 (1.1-1.8) 05/29/18 06:00 Triglycerides 127 mg/dL (35-160) 05/27/18 06:00 Cholesterol 188 mg/dL (130-200) 05/27/18 06:00 LDL Cholesterol Direct 115 mg/dL (0-129) 05/27/18 06:00 HDL Cholesterol 53 mg/dL (29-60) 05/27/18 06:00 Lipase 428 U/L (23-300) H 05/27/18 02:20 TSH 3rd Generation 0.69 mIU/mL (0.46-4.68) 05/27/18 06:00 Urine Color Yellow (YELLOW) 05/27/18 22:18 Urine Appearance Clear (CLEAR) 05/27/18 22:18 Urine pH 6.5 (4.7-8.0) 05/27/18 22:18 Ur Specific [place] 1.010 (1.005-1.035) 05/27/18 22:18 Urine Protein Negative mg/dL (<30 mg/dL) 05/27/18 22:18 Urine Glucose (UA) Negative mg/dL (NEGATIVE) 05/27/18:18 Urine Ketones Negative mg/dL (NEGATIVE) 05/27/18 22:18 Urine Blood Negative (NEGATIVE) 05/27/18 22:18 Urine Nitrate Negative (NEGATIVE) 05/27/18 22:18 Urine Bilirubin Negative (NEGATIVE) 05/27/18 22:18 Urine Urobilinogen 0.2 E.U./dL (<1 E.U./dL) 05/27/18 22:18 Ur Leukocyte Esterase Negative Carole/uL (NEGATIVE) 05/27/18 22:18 Urine HCG, Qual Negative (NEGATIVE) 05/28/18 18:25 Urine Opiates Screen Negative (NEGATIVE) 05/27/18 22:18 Urine Methadone Screen Negative (NEGATIVE) 05/27/18 22:18 Ur Barbiturates Screen Negative (NEGATIVE) 05/27/18 22:18 Ur Phencyclidine Scrn Negative (NEGATIVE) 05/27/18 22:18 Ur Amphetamines Screen Negative (NEGATIVE) 05/27/18 22:18 U Benzodiazepines Scrn Negative (NEGATIVE) 05/27/18 22:18 U Oth Cocaine Metabols Negative (NEGATIVE) 05/27/18 22:18 U Cannabinoids Screen Negative (NEGATIVE) 05/27/18 22:18 Alcohol, Quantitative < 10 mg/dL (0-10) 05/27/18 06:00 - Hospital Course Hospital Course: HPI: Ms. Merlos is a 28 year old female with past medical history of pancreatitis with multiple admissions, alcohol abuse, and hydradenitis suppurativa who presents to ED with worsening epigastric abdominal pain. She states that this abdominal pain started about a week ago. She was admitted at [facility] for the same complaint and states she left there Friday after being treated for pancreatitis. Since then she states the pain has not improved and has continued to get worse. She denies having any alcoholic beverages or other drugs since leaving [facility] on Friday. She describes the pain as an intermittent, sharp, stabbing type pain that radiates to her back and lower chest. The pain is worse in the epigastric region. She states nothing has helped with the pain, including OTC tums and mylanta. Aside from the abdominal pain, she denies fever/chills, mid-sternal CP, SOB, dyspnea on exertion, cough, congestion, JULES, blurred vision, or peripheral numbness/tingling. During the course of admission: Lipase was only mildly elevated at 428. Patient's diet was slowly advanced from full liquid to soft heart healthy, which patient tolerated well with no new episodes of vomiting/diarrhea/constipation. Patient was slighly anemic which was attributed to dilutional effect of adequite fluid hydration. CT abdomen and pelvis demonstrated questionable slight haziness surrounding the pancreas, fatty liver, otherwise unremarkable. She was placed on percocet as needed for pain relief. GI was consulted which recommended low fat diet, alcohol and smoking cessation counseling provided, with outpatient follow up. Prior EGD done on 01/2018 demonstrated non-severed esophagitis, large hiatal hernia. Patient was educated on alcohol cessation as well. Patient is medically stable for discharge to home, as per Dr. Ledesma. Patient to take all medications as prescribed. Patient has been provided alcohol cessation counseling and advised to avoid fatty foods, as they may worsen symptoms. Please follow up at the [facility] within 1 week of discharge, located on Ground floor, for continued monitoring and medical management. Contact info has been provided below: [facility] [address] [place] [address] If symptoms worsen, please return to ED for further care. This is a summary of hospital course. for further detail please refer to EMR. - Date & Time of H&P Date of H&P: 05/30/18 Time of H&P: 14:36 Discharge Exam - Head Exam Head Exam: ATRAUMATIC, NORMAL INSPECTION, NORMOCEPHALIC - Eye Exam Eye Exam: EOMI, Normal appearance Pupil Exam: NORMAL ACCOMODATION - ENT Exam ENT Exam: Mucous Membranes Moist, Normal Exam - Neck Exam Neck exam: Full Rom, Normal Inspection - Respiratory Exam Respiratory Exam: Clear to PA & Lateral, NORMAL BREATHING PATTERN, UNREMARKABLE. absent: Accessory Muscle Use, Rales, Rhonchi, Wheezes, Respiratory Distress, Stridor - Cardiovascular Exam Cardiovascular Exam: REGULAR RHYTHM, +S1, +S2 - GI/Abdominal Exam GI & Abdominal Exam: Normal Bowel Sounds, Soft, Unremarkable. absent: Distended, Firm, Guarding, Organomegaly, Rebound, Rigid, Tenderness - Extremities Exam Extremities exam: full ROM, normal capillary refill, normal inspection, pedal pulses present - Back Exam Back exam: NORMAL INSPECTION - Neurological Exam Neurological exam: Alert, CN II-XII Intact, Oriented x3, Reflexes Normal - Psychiatric Exam Psychiatric exam: Normal Affect, Normal Mood - Skin Skin Exam: Dry, Intact, Normal Color, Warm Discharge Plan - Discharge Medications Prescriptions: Amylase/Lipase/Protease [Pancrease 12351 U-5000 U-36050 U] 5,000 unit PO DAILY #7 ecc Thiamine [Vitamin B1 Tab] 100 mg PO DAILY #30 tab - Follow Up Plan Condition: STABLE Disposition: HOME/ ROUTINE Instructions: Pancreatitis (DC), Acute Abdomen (Belly Pain), Adult (DC) Additional Instructions: Patient is medically stable for discharge to home, as per Dr. Ledesma. Patient to take all medications as prescribed. Patient has been provided alcohol cessation counseling and advised to avoid fatty foods, as they may worsen symptoms. Please follow up at the [facility] within 1 week of discharge, located on Ground floor, for continued monitoring and medical management. Contact info has been provided below: [facility] [address] [place] [address] If symptoms worsen, please return to ED for further care. Referrals: Clinic,Med Surg [Non-Staff] - <Vivi Garsia - Last Filed: 05/30/18 14:55> Provider - Provider Date of Admission: 05/27/18 17:24 Attending physician: Vivi Garsia MD Hospital Course - Lab Results Lab Results: Most Recent Lab Values WBC 6.7 10^3/uL (4.5-11.0) D 05/29/18 06:00 RBC 3.35 10^6/uL (3.5-6.1) L 05/29/18 06:00 Hgb 10.5 g/dL (12.0-16.0) L 05/29/18 06:00 Hct 31.6 % (36.0-48.0) L 05/29/18 06:00 MCV 94.3 fl (80.0-105.0) 05/29/18 06:00 MCH 31.3 pg (25.0-35.0) 05/29/18 06:00 MCHC 33.2 g/dl (31.0-37.0) 05/29/18 06:00 RDW 20.4 % (11.5-14.5) H 05/29/18 06:00 Plt Count 341 10^3/uL (120.0-450.0) 05/29/18 06:00 MPV 9.1 fl (7.0-11.0) 05/29/18 06:00 Gran % 58.9 % (50.0-68.0) 05/29/18 06:00 Lymph % (Auto) 31.2 % (22.0-35.0) 05/29/18 06:00 Rawlins % (Auto) 8.8 % (1.0-6.0) H 05/29/18 06:00 Eos % (Auto) 1.0 % (1.5-5.0) L 05/29/18 06:00 Baso % (Auto) 0.1 % (0.0-3.0) 05/29/18 06:00 Gran # 3.93 (1.4-6.5) 05/29/18 06:00 Lymph # (Auto) 2.1 (1.2-3.4) 05/29/18 06:00 Rawlins # (Auto) 0.6 (0.1-0.6) 05/29/18 06:00 Eos # (Auto) 0.1 (0.0-0.7) 05/29/18 06:00 Baso # (Auto) 0.01 K/mm3 (0.0-2.0) 05/29/18 06:00 Retic Count 3.37 % (0.5-1.5) H 05/29/18 06:00 Sodium 137 mmol/L (132-148) 05/29/18 06:00 Potassium 3.6 mmol/L (3.6-5.0) 05/29/18 06:00 Chloride 99 mmol/L (98-107) 05/29/18 06:00 Carbon Dioxide 30 mmol/L (21-33) 05/29/18 06:00 Anion Gap 13 (10-20) 05/29/18 06:00 BUN 5 mg/dL (7-21) L 05/29/18 06:00 Creatinine 0.6 mg/dl (0.7-1.2) L 05/29/18 06:00 Est GFR ( Amer) > 60 05/29/18 06:00 Est GFR (Non-Af Amer) > 60 05/29/18 06:00 Random Glucose 125 mg/dL (70-110) H 05/29/18 06:00 Hemoglobin A1c 5.5 % (4.2-6.5) 05/27/18 06:00 Calcium 9.8 mg/dL (8.4-10.5) 05/29/18 06:00 Phosphorus 3.4 mg/dL (2.5-4.5) 05/27/18 06:00 Magnesium 1.6 mg/dL (1.7-2.2) L 05/27/18 06:00 Iron 20 ug/dL (45-180) L 05/29/18 06:00 TIBC 337 ug/dL (265-497) 05/29/18 06:00 % Saturation 6 % (20-55) L 05/29/18 06:00 Ferritin 30.4 ng/mL 05/29/18 06:00 Total Bilirubin 0.4 mg/dL (0.2-1.3) 05/29/18 06:00 AST 56 U/L (14-36) H 05/29/18 06:00 ALT 41 U/L (7-56) 05/29/18 06:00 Alkaline Phosphatase 96 U/L (38-126) 05/29/18 06:00 Total Protein 7.1 g/dL (5.8-8.3) 05/29/18 06:00 Albumin 3.7 g/dL (3.0-4.8) 05/29/18 06:00 Globulin 3.3 gm/dL 05/29/18 06:00 Albumin/Globulin Ratio 1.1 (1.1-1.8) 05/29/18 06:00 Triglycerides 127 mg/dL (35-160) 05/27/18 06:00 Cholesterol 188 mg/dL (130-200) 05/27/18 06:00 LDL Cholesterol Direct 115 mg/dL (0-129) 05/27/18 06:00 HDL Cholesterol 53 mg/dL (29-60) 05/27/18 06:00 Lipase 428 U/L (23-300) H 05/27/18 02:20 TSH 3rd Generation 0.69 mIU/mL (0.46-4.68) 05/27/18 06:00 Urine Color Yellow (YELLOW) 05/27/18:18 Urine Appearance Clear (CLEAR) 05/27/18 22:18 Urine pH 6.5 (4.7-8.0) 05/27/18 22:18 Ur Specific [place] 1.010 (1.005-1.035) 05/27/18 22:18 Urine Protein Negative mg/dL (<30 mg/dL) 05/27/18 22:18 Urine Glucose (UA) Negative mg/dL (NEGATIVE) 05/27/18 22:18 Urine Ketones Negative mg/dL (NEGATIVE) 05/27/18 22:18 Urine Blood Negative (NEGATIVE) 05/27/18 22: Urine Nitrate Negative (NEGATIVE) 11/14/18 22:18 Urine Bilirubin Negative (NEGATIVE) 05/27/18 22:18 Urine Urobilinogen 0.2 E.U./dL (<1 E.U./dL) 05/27/18 22:18 Ur Leukocyte Esterase Negative Carole/uL (NEGATIVE) 05/27/18 22:18 Urine HCG, Qual Negative (NEGATIVE) 05/28/18 18:25 Urine Opiates Screen Negative (NEGATIVE) 05/27/18 22:18 Urine Methadone Screen Negative (NEGATIVE) 05/27/18 22:18 Ur Barbiturates Screen Negative (NEGATIVE) 05/27/18 22:18 Ur Phencyclidine Scrn Negative (NEGATIVE) 05/27/18 22:18 Ur Amphetamines Screen Negative (NEGATIVE) 05/27/18 22:18 U Benzodiazepines Scrn Negative (NEGATIVE) 05/27/18 22:18 U Oth Cocaine Metabols Negative (NEGATIVE) 05/27/18 22:18 U Cannabinoids Screen Negative (NEGATIVE) 05/27/18 22:18 Alcohol, Quantitative < 10 mg/dL (0-10) 05/27/18 06:00 Attending/Attestation - Attestation I have personally seen and examined this patient.: Yes I have fully participated in the care of the patient.: Yes I have reviewed all pertinent clinical information, including history, physical exam and plan: Yes Notes (Text): 05/30/18 14:53 28 year old female with past medical history of alcohol abuse and pancreatitis who presented with intractable epigastric pain. She was admitted for acute on chronic pancreatitis. CT abd/pelvis showed ?slight haziness surrounding the pancreas. Her diet was slowly advanced as her symptoms improved. She was seen by GI who added regimen for constipation. Patient is discharged home today to follow up at [facility]. Counselled on alcohol abstinence. Vivi Garsia MD Hospitalist.
[2018-05-30 08:13] VITALS: BP 141/93; PULSE 74; RESP 19; TEMP 98.6
--- NOTE | 2018-05-30 11:08 | CP.PCM.PN ---
<Beulah Condon - Last Filed: 05/30/18 11:05> Subjective - Date & Time of Evaluation Date of Evaluation: 05/30/18 Time of Evaluation: 08:00 - Subjective Subjective: GI Fellow PGY5 Progress Note Pt seen and evaluated at bedside, pt denies any abdominal pain. ROS: A 12pt ROS was negative except as above. Objective - Vital Signs/Intake and Output Vital Signs (last 24 hours): Temp Pulse Resp BP Pulse Ox 98.6 F 74 19 141/93 H 98 05/30/18 08:12 05/30/18 08:12 05/30/18 08:12 05/30/18 08:12 05/30/18 08:12 Intake and Output: 05/30/18 05/30/18 06:59 18:59 Intake Total 3840 Balance 3840 - Medications Medications: Current Medications Lactated Ringer's (Lactated Ringer's) 1,000 mls @ 100 mls/hr IV .Q10H [facility] Last Admin: 05/29/18 13:44 Dose: 100 mls/hr Lorazepam (Ativan) 1 mg IVP Q4H PRN; Protocol PRN Reason: Anxiety Last Admin: 05/30/18 08:11 Dose: 1 mg Ondansetron HCl (Zofran Inj) 4 mg IVP Q6H PRN PRN Reason: Nausea/Vomiting Pantoprazole Sodium (Protonix Ec Tab) 40 mg PO 0600 [facility] Last Admin: 05/30/18 05:20 Dose: 40 mg - Labs Labs: 05/29/18 06:00 05/29/18 06:00 - Constitutional Appears: Non-toxic, No Acute Distress - Head Exam Head Exam: ATRAUMATIC, NORMAL INSPECTION, NORMOCEPHALIC - Eye Exam Eye Exam: EOMI, Normal appearance, PERRL Pupil Exam: PERRL - ENT Exam ENT Exam: Mucous Membranes Moist - Respiratory Exam Respiratory Exam: Clear to Ausculation Bilateral, NORMAL BREATHING PATTERN - Cardiovascular Exam Cardiovascular Exam: REGULAR RHYTHM, RRR, +S1, +S2 - GI/Abdominal Exam GI & Abdominal Exam: Soft, Normal Bowel Sounds. absent: Distended, Tenderness - Extremities Exam Extremities Exam: Full ROM - Neurological Exam Neurological Exam: Alert, Awake, Oriented x3 - Psychiatric Exam Psychiatric exam: Normal Affect, Normal Mood - Skin Skin Exam: Dry, Intact, Normal Color, Warm Assessment and Plan - Assessment and Plan (Free Text) Assessment: Ms. Merlos is a 28 year old female with PMHx of pancreatitis, alcohol abuse, and hydradenitis suppurativa who presents to ED with worsening epigastric abdominal pain. 1. Epigastric Abdominal Pain ddx: pancreatitis, constipation Plan: -Continue supportive care -Pt tolerating diet wth no further abominal pain -CT abd/pelvis w/ po contrast, questionable slight haziness surrounding the pancreas, fatty liver, otherwise unremarkable -IVF hydration -alcohol and smoking cessation counseling provided -Prior GI procedures EGD 01/2018 non-severe esophagitis, large hiatal hernia -Pt okay for dc home today <Harsha Magana V - Last Filed: 05/30/18 23:37> Objective - Vital Signs/Intake and Output Vital Signs (last 24 hours): Temp Pulse Resp BP Pulse Ox 98.6 F 74 19 141/93 H 98 05/30/18 08:12 05/30/18 08:12 05/30/18 08:12 05/30/18 08:12 05/30/18 08:12 - Labs Labs: 05/29/18 06:00 05/29/18 06:00 Attending/Attestation - Attestation I have personally seen and examined this patient.: No I have fully participated in the care of the patient.: Yes I have reviewed all pertinent clinical information, including history, physical exam and plan: Yes Notes (Text): This is an addendum to GI consult report dictated by the GI Fellow.The patient was seen and examined earlier. Medical records, lab studies, imagings were reviewed. Last 24 hours events reviewed. Agreed with the above treatment plan as outlined in GI Fellow 's notes with the addition of the following 05/30/18 23:37
== END 2018-05-30 17:56 | disposition home or self-care (01) | DRG 282 ==
LOC: ED 00:30 → ERH 03:55 → 3RSO 05:28 → OBSVTOIN 17:24
PROVIDERS: ADMIT Hospitalist; ATTEND Internal Medicine
DX: K85.90 Acute pancreatitis without necrosis or infection, unspecified (principal); K76.0 Fatty (change of) liver, not elsewhere classified; K86.1 Other chronic pancreatitis; D64.9 Anemia, unspecified; K29.70 Gastritis, unspecified, without bleeding; K59.00 Constipation, unspecified; F17.210 Nicotine dependence, cigarettes, uncomplicated; K20.9 Esophagitis, unspecified; K44.9 Diaphragmatic hernia without obstruction or gangrene; F10.10 Alcohol abuse, uncomplicated

== ENCOUNTER 2018-06-09 14:16 | Inpatient (IN) | payer MEDICAID, OTHER ==
[2018-06-09 14:17] VITALS: BMI 24.4
[2018-06-09] MEDS ORDERED: Sodium Chloride 0.9% 1,000 ML IV SCH (15:30)
--- NOTE | 2018-06-09 15:34 | ED PDOC ---
Arrival/HPI - General Chief Complaint: Abdominal Pain Time Seen by Provider: 06/09/18 14:18 Historian: Patient - History of Present Illness Narrative History of Present Illness (Text): 06/09/18 15:28 28 year old male, whose past medical history includes pancreatitis, alcohol abuse, and hydradenitis suppurativa, presents to the emergency department complaining of abdominal pain. Patient states she has been experiencing abdomina l pain for the past couple of days that radiates to her chest, and back. She reports the pain has progressively worsened this morning with associated nausea, vomiting, and "foamy, watery" diarrhea. She states that these symptoms feel similar to previous pancreatitis pain prompting her visit to the emergency department for further evaluation. Patient denies fevers, chills, headache, dizziness, shortness of breath, dyspnea on exertion, cough, neck pain, or any other complaint. Time/Duration: < week Symptom Course: Worsening Activities at Onset: Light Context: Home Past Medical History - Provider Review Nursing Documentation Reviewed: Yes - Infectious Disease Hx of Infectious Diseases: None - Tetanus Immunization Tetanus Immunization: Unknown - Cardiac Hx Cardiac Disorders: No - Pulmonary Hx Respiratory Disorders: No - Neurological Hx Neurological Disorder: No - HEENT Hx HEENT Disorder: No - Renal Hx Renal Disorder: No - Endocrine/Metabolic Hx Endocrine Disorders: No - Hematological/Oncological Hx Blood Disorders: No - Integumentary Hx Dermatological Disorder: No - Musculoskeletal/Rheumatological Hx Musculoskeletal Disorders: No - Gastrointestinal Hx Gastrointestinal Disorders: Yes Hx Pancreatitis: Yes - Genitourinary/Gynecological Hx Genitourinary Disorders: No - Psychiatric Hx Psychophysiologic Disorder: No Hx Substance Use: No - Surgical History Other/Comment: Cyst removal / ABCESS bilat armpit - Anesthesia Hx Anesthesia: Yes Hx Anesthesia Reactions: No Hx Malignant Hyperthermia: No Family/Social History - Physician Review Nursing Documentation Reviewed: Yes Family/Social History: No Known Family HX Smoking Status: Light Smoker < 10 Cigarettes Daily Hx Alcohol Use: Yes (Vodka) Frequency of alcohol use: Daily Hx Substance Use: No Allergies/Home Meds Allergies/Adverse Reactions: Allergies No Known Allergies Allergy (Verified 06/09/18 14:52) Review of Systems - Review of Systems Constitutional: absent: Fevers Respiratory: absent: Cough Cardiovascular: Chest Pain Gastrointestinal: Abdominal Pain, Diarrhea, Nausea, Vomiting Musculoskeletal: Back Pain Skin: absent: Rash Neurological: absent: Headache, Dizziness Physical Exam - Physical Exam Narrative Physical Exam (Text): 06/09/18 15:28 Gen: VS reviewed, alert, well developed, well nourished, nontoxic, mild distress. ENT: dry mucous membranes. Eye: EOMI, PERRL. Neck: no JVD, supple, no adenopathy. CV: regular rate, regular rhythm, no rubs, no murmur, no gallops, S1, S2, pulses equal and strong. Pulm: no distress, clear to auscultation, no wheeze, no rhonchi, breath sounds equal, no rales. Abd: mild epigastric tenderness. Ext: no edema. Skin: good color, no rash, no cyanosis. Psych: responds appropriately to questions, normal affect. Neuro: oriented x 3, CN2-12 intact grossly, motor intact, sensation intact. Vital Signs Reviewed: Yes Vital Signs Temp Pulse Resp BP Pulse Ox 06/09/18 14:50 98.4 F 102 H 18 144/102 H 95 Temperature: Afebrile Blood Pressure: Hypertensive Pulse: Tachycardic Respiratory Rate: Normal Appearance: Positive for: Well-Appearing, Non-Toxic, Comfortable Pain Distress: None Mental Status: Positive for: Alert and Oriented X 3 Medical Decision Making ED Course and Treatment: 06/09/18 15:29 Impression: 28 year old female who presents to the emergency department complaining of ab dominal pain. Plan: -- labs -- Lidocaine -- IV fluids -- Zofran -- test -- Urinary straight catheterization -- Reassess and disposition Prior Visits: Notes and results from previous visits were reviewed. Progress Notes: 06/09/18 18:[address] ch to the hospitalist service. patient to be admitted for alcoholic gastritis/pancreatitis. patient is an everyday drinker of alcohol and states that he last drink was late last night. patient noted to be mildly tremulous at 1805, reports nausea, ciwa score approx 3, will give zofran and ativan for symptoms control. admit to tele for the risk of alcohol withdrawal. - Lab Interpretations I have reviewed the lab results: Yes - Medication Orders Current Medication Orders: Sodium Chloride (Sodium Chloride 0.9%) 1,000 mls @ 150 mls/hr IV .Q6H40M YUDI Lidocaine (Lidocaine 2% Viscous) 15 ml PO STAT STA Stop: 06/09/18 15:28 Ondansetron HCl (Zofran Inj) 4 mg IVP STAT STA Stop: 06/09/18 15:28 - Scribe Statement The provider has reviewed the documentation as recorded by the Scribe Gail Swanson Provider Scribe Attestation: All medical record entries made by the Scribe were at my direction and personally dictated by me. I have reviewed the chart and agree that the record accurately reflects my personal performance of the history, physical exam, medical decision making, and the department course for this patient. I have also personally directed, reviewed, and agree with the discharge instructions and disposition. Disposition/Present on Arrival - Present on Arrival Any Indicators Present on Arrival: No History of DVT/PE: No History of Uncontrolled Diabetes: No Urinary Catheter: No History of Decub. Ulcer: No History Surgical Site Infection Following: None - Disposition Have Diagnosis and Disposition been Completed?: Yes Diagnosis: Alcoholic gastritis, Acute pancreatitis Disposition: HOSPITALIZED Disposition Time: 18:16 Patient Plan: Admission Condition: STABLE Forms: [employer] (Dominican)
[2018-06-09 17:12] LABS: BASO # 0.03 K/mm3 (0.0-2.0); BASO % 0.5 % (0.0-3.0); EOS # 0.1 (0.0-0.7); EOS % 1.1 % (1.5-5.0); GRAN # 2.94 (1.4-6.5); GRAN % 44.9 % (50.0-68.0); HEMOGLOBIN 12.6 g/dL (12.0-16.0); LYMPH # 3.1 (1.2-3.4); LYMPH % 46.9 % (22.0-35.0); MEAN CELL VOLUME 92.6 fl (80.0-105.0); MEAN CORPUSCULAR HEMOGLOBIN 29.9 pg (25.0-35.0); MEAN CORPUSCULAR HGB CONC 32.3 g/dl (31.0-37.0); MEAN PLATELET VOLUME 9.1 fl (7.0-11.0); MONO # 0.4 (0.1-0.6); MONO % 6.6 % (1.0-6.0); RBC 4.21 10^6/uL (3.5-6.1); WHITE BLOOD COUNT 6.5 10^3/uL (4.5-11.0)
[2018-06-09] MEDS ORDERED: Morphine 4 mg/ml ISec IVP STA (17:25)
[2018-06-09 17:26] LABS: ALB/GLOB RATIO 1.1 (1.1-1.8); ALBUMIN 4.6 g/dL (3.0-4.8); ALT/SGPT 102 U/L (7-56); AST/SGOT 144 U/L (14-36); BLOOD UREA NITROGEN 4 mg/dL (7-21); CALCIUM 9.2 mg/dL (8.4-10.5); GFR NON-AFRICAN AMERICAN > 60; LIPASE 568 U/L (23-300)
[2018-06-09 17:36] LABS: TROPONIN I < 0.01 ng/mL
[2018-06-09 17:38] LABS: BARBITURATES, UR NEGATIVE (NEGATIVE); BENZODIAZEPINES, UR NEGATIVE (NEGATIVE); OPIATES, UR NEGATIVE (NEGATIVE); PHENCYCLIDINE, UR NEGATIVE (NEGATIVE)
[2018-06-09] MEDS ORDERED: Multivitamin (MVI) 10 ML, Thiamine 100 MG, Folic Acid 1 MG in Sodium Chloride 0.9% 1,00... IV ONE (18:09)
[2018-06-09] MEDS ORDERED: Morphine 2 mg/ml ISec IVP STA (18:51)
[2018-06-09] MEDS ORDERED: Morphine 4 mg/ml ISec IVP PRN (18:56)
[2018-06-09] MEDS ORDERED: Morphine 2 mg/ml ISec IVP PRN (18:56)
--- NOTE | 2018-06-09 19:31 | CP.PCM.HP ---
<Ifeanyi Fofana - Last Filed: 06/09/18 19:20> History of Present Illness - History of Present Illness History of Present Illness: Hospitalist H&P for Dr. Jauregui CC: Abdominal pain, N/V Patient is a 28 yo F with PMH of pancreatitis, alcohol abuse, and hydradenitis suppurativa presents to [facility] with complaint of abdominal pain. Patient states that the pain started this morning and starts in the epigastric region and radiates to her back. She also has associated nausea, vomiting, and watery diarrhea. Patient states she has had pancreatitis several times in the past and states that her symptoms now are similar to those occasions. Patient admits to heavy drinking, despite having gone to AA meetings and detox in the past. Patient denies CP, SOB, fever, chills, JULES, dizziness, dysuria, BRBPR, or melena. PMD: none PMH: pancreatitis, alcohol abuse, and hydradenitis suppurativa Surg: b/l axilla abscess removal from hydradenitis suppurativa All: NKDA FHx: non-contributory Social Hx: admits to smoking cigarettes about 10 cigarettes per day for the past 10 years. She admits to drinking about 1/2 pint of vodka daily, she denies illicit drug use No home medications Present on Admission - Present on Admission Any Indicators Present on Admission: No Review of Systems - Review of Systems All systems: reviewed and no additional remarkable complaints except (12 point ROS reviewed and is negative other than what is stated in HPI.) Past Patient History - Infectious Disease Hx of Infectious Diseases: None - Tetanus Immunizations Tetanus Immunization: Unknown - Past Medical History & Family History Past Medical History?: Yes - Past Social History Smoking Status: Light Smoker < 10 Cigarettes Daily - CARDIAC Hx Cardiac Disorders: No - PULMONARY Hx Respiratory Disorders: No - NEUROLOGICAL Hx Neurological Disorder: No - HEENT Hx HEENT Problems: No - RENAL Hx Chronic Kidney Disease: No - ENDOCRINE/METABOLIC Hx Endocrine Disorders: No - HEMATOLOGICAL/ONCOLOGICAL Hx Blood Disorders: No - INTEGUMENTARY Hx Dermatological Problems: No - MUSCULOSKELETAL/RHEUMATOLOGICAL Hx Musculoskeletal Disorders: No - GASTROINTESTINAL Hx Gastrointestinal Disorders: Yes Hx Pancreatitis: Yes - GENITOURINARY/GYNECOLOGICAL Hx Genitourinary Disorders: No - PSYCHIATRIC Hx Psychophysiologic Disorder: No Hx Substance Use: No - SURGICAL HISTORY Other/Comment: Cyst removal / ABCESS bilat armpit - ANESTHESIA Hx Anesthesia: Yes Hx Anesthesia Reactions: No Hx Malignant Hyperthermia: No Meds Allergies/Adverse Reactions: Allergies Allergy/AdvReac Type Severity Reaction Status Date / Time No Known Allergies Allergy Verified 06/09/18 14:52 Physical Exam - Constitutional Appears: In Acute Distress - Head Exam Head Exam: NORMAL INSPECTION - Eye Exam Eye Exam: Normal appearance - ENT Exam ENT Exam: Mucous Membranes Dry - Neck Exam Neck exam: Positive for: Normal Inspection - Respiratory Exam Respiratory Exam: Clear to Auscultation Bilateral. absent: Rales, Rhonchi, Wheezes - Cardiovascular Exam Cardiovascular Exam: RRR, +S1, +S2. absent: Diastolic murmur, Gallop, Rubs, Systolic Murmur - GI/Abdominal Exam GI & Abdominal Exam: Guarding, Soft, Tenderness. absent: Distended, Hernia, Rebound - Extremities Exam Extremities exam: Positive for: normal inspection - Back Exam Back exam: NORMAL INSPECTION - Neurological Exam Neurological exam: Alert, CN II-XII Intact, Oriented x3 - Psychiatric Exam Psychiatric exam: Normal Affect - Skin Skin Exam: Dry, Intact, Warm Results - Vital Signs Recent Vital Signs: Last Vital Signs Temp 98.4 F 06/09/18 14:50 Pulse 102 H 06/09/18 14:50 Resp 18 06/09/18 14:50 BP 144/102 H 06/09/18 14:50 Pulse Ox 95 06/09/18 14:50 - Labs Result Diagrams: 06/09/18 16:57 06/09/18 16:57 Labs: Laboratory Results - last 24 hr 06/09/18 06/09/18 06/09/18 16:57 16:57 16:57 WBC 6.5 RBC 4.21 Hgb 12.6 D Hct 39.0 MCV 92.6 MCH 29.9 MCHC 32.3 RDW 21.0 H Plt Count 468 H MPV 9.1 Gran % 44.9 L Lymph % (Auto) 46.9 H [place] % (Auto) 6.6 H Eos % (Auto) 1.1 L Baso % (Auto) 0.5 Gran # 2.94 Lymph # (Auto) 3.1 [place] # (Auto) 0.4 Eos # (Auto) 0.1 Baso # (Auto) 0.03 Sodium 142 Potassium 4.0 Chloride 104 Carbon Dioxide 25 Anion Gap 17 BUN 4 L Creatinine 0.5 L Est GFR ( Amer) > 60 Est GFR (Non-Af Amer) > 60 Random Glucose 119 H Calcium 9.2 Total Bilirubin 0.8 AST 144 H D ALT 102 H Alkaline Phosphatase 133 H D Troponin I < 0.01 Total Protein 8.7 H Albumin 4.6 Globulin 4.1 Albumin/Globulin Ratio 1.1 Lipase 568 H Urine Opiates Screen Negative Urine Methadone Screen Negative Ur Barbiturates Screen Negative Ur Phencyclidine Scrn Negative Ur Amphetamines Screen Negative U Benzodiazepines Scrn Negative U Oth Cocaine Metabols Negative U Cannabinoids Screen Negative Alcohol, Quantitative 06/09/18 16:57 WBC RBC Hgb Hct MCV MCH MCHC RDW Plt Count MPV Gran % Lymph % (Auto) [place] % (Auto) Eos % (Auto) Baso % (Auto) Gran # Lymph # (Auto) [place] # (Auto) Eos # (Auto) Baso # (Auto) Sodium Potassium Chloride Carbon Dioxide Anion Gap BUN Creatinine Est GFR ( Amer) Est GFR (Non-Af Amer) Random Glucose Calcium Total Bilirubin AST ALT Alkaline Phosphatase Troponin I Total Protein Albumin Globulin Albumin/Globulin Ratio Lipase Urine Opiates Screen Urine Methadone Screen Ur Barbiturates Screen Ur Phencyclidine Scrn Ur Amphetamines Screen U Benzodiazepines Scrn U Oth Cocaine Metabols U Cannabinoids Screen Alcohol, Quantitative 161 H Assessment & Plan - Assessment and Plan (Free Text) Assessment: 28 yo F with PMH of pancreatitis, alcohol abuse, and hydradenitis suppurativa is admitted evaluation and treatment for acute pancreatitis and alcohol intoxication with probable withdrawal. Plan: 1. Acute Pancreatitis - Lipase 568 - Banana Bag - Zofran for nausea - Morphine for pain - NPO 2. Alcohol Abuse/Withdrawal - Alcohol level 161 - Banana Bag - CIWA protocol - Ativan prn and chance 3. Transaminitis - Likely 2/2 alcohol abuse - UDS negative - Tylenol and ASA ordered - Acute hep panel ordered GI/DVT PPx - Protonix - SCDs Patient seen and discussed in detail with Dr. Jauregui. Silvano Fofana, DO PGY2 <Marion Jauregui - Last Filed: 06/10/18 14:56> Results - Vital Signs Recent Vital Signs: Last Vital Signs Temp 98.9 F 06/10/18 12:00 Pulse 122 H 06/10/18 12:00 Resp 18 06/10/18 12:00 BP 144/102 H 06/09/18 14:50 Pulse Ox 98 06/10/18 06:00 - Labs Result Diagrams: 06/10/18 06:25 06/10/18 06:25 Labs: Laboratory Results - last 24 hr 06/09/18 06/09/18 06/09/18 16:57 16:57 16:57 WBC 6.5 RBC 4.21 Hgb 12.6 D Hct 39.0 MCV 92.6 MCH 29.9 MCHC 32.3 RDW 21.0 H Plt Count 468 H MPV 9.1 Gran % 44.9 L Lymph % (Auto) 46.9 H [place] % (Auto) 6.6 H Eos % (Auto) 1.1 L Baso % (Auto) 0.5 Gran # 2.94 Lymph # (Auto) 3.1 [place] # (Auto) 0.4 Eos # (Auto) 0.1 Baso # (Auto) 0.03 Sodium 142 Potassium 4.0 Chloride 104 Carbon Dioxide 25 Anion Gap 17 BUN 4 L Creatinine 0.5 L Est GFR ( Amer) > 60 Est GFR (Non-Af Amer) > 60 Random Glucose 119 H Calcium 9.2 Phosphorus Magnesium Total Bilirubin 0.8 AST 144 H D ALT 102 H Alkaline Phosphatase 133 H D Troponin I < 0.01 Total Protein 8.7 H Albumin 4.6 Globulin 4.1 Albumin/Globulin Ratio 1.1 Lipase 568 H Salicylates Urine Opiates Screen Negative Urine Methadone Screen Negative Acetaminophen Ur Barbiturates Screen Negative Ur Phencyclidine Scrn Negative Ur Amphetamines Screen Negative U Benzodiazepines Scrn Negative U Oth Cocaine Metabols Negative U Cannabinoids Screen Negative Alcohol, Quantitative Hepatitis A IgM Ab Hep Bs Antigen Hep B Core IgM Ab Hepatitis C Antibody 06/09/18 06/09/18 06/09/18 16:57 17:00 17:00 WBC RBC Hgb Hct MCV MCH MCHC RDW Plt Count MPV Gran % Lymph % (Auto) [place] % (Auto) Eos % (Auto) Baso % (Auto) Gran # Lymph # (Auto) [place] # (Auto) Eos # (Auto) Baso # (Auto) Sodium Potassium Chloride Carbon Dioxide Anion Gap BUN Creatinine Est GFR ( Amer) Est GFR (Non-Af Amer) Random Glucose Calcium Phosphorus Magnesium Total Bilirubin AST ALT Alkaline Phosphatase Troponin I Total Protein Albumin Globulin Albumin/Globulin Ratio Lipase Salicylates < 1 L Urine Opiates Screen Urine Methadone Screen Acetaminophen < 10.0 L Ur Barbiturates Screen Ur Phencyclidine Scrn Ur Amphetamines Screen U Benzodiazepines Scrn U Oth Cocaine Metabols U Cannabinoids Screen Alcohol, Quantitative 161 H Hepatitis A IgM Ab Negative Hep Bs Antigen Negative Hep B Core IgM Ab Negative Hepatitis C Antibody Negative 06/10/18 06/10/18 06/10/18 06:25 06:25 06:30 WBC 7.7 RBC 3.61 Hgb 10.8 L Hct 33.7 L MCV 93.4 MCH 29.9 MCHC 32.0 RDW 21.0 H Plt Count 426 MPV 9.2 Gran % Lymph % (Auto) [place] % (Auto) Eos % (Auto) Baso % (Auto) Gran # Lymph # (Auto) [place] # (Auto) Eos # (Auto) Baso # (Auto) Sodium 138 Potassium 3.8 Chloride 105 Carbon Dioxide 27 Anion Gap 10 BUN 3 L Creatinine 0.6 L Est GFR ( Amer) > 60 Est GFR (Non-Af Amer) > 60 Random Glucose 114 H Calcium 8.4 Phosphorus 3.9 Magnesium 1.3 L Total Bilirubin 1.3 AST 125 H ALT 87 H Alkaline Phosphatase 111 Troponin I Total Protein 7.4 Albumin 3.8 Globulin 3.6 Albumin/Globulin Ratio 1.1 Lipase 918 H Salicylates Urine Opiates Screen Urine Methadone Screen Acetaminophen Ur Barbiturates Screen Ur Phencyclidine Scrn Ur Amphetamines Screen U Benzodiazepines Scrn U Oth Cocaine Metabols U Cannabinoids Screen Alcohol, Quantitative Hepatitis A IgM Ab Hep Bs Antigen Hep B Core IgM Ab Hepatitis C Antibody Attending/Attestation - Attestation I have personally seen and examined this patient.: Yes I have fully participated in the care of the patient.: Yes I have reviewed all pertinent clinical information: Yes Notes (Text): 06/10/18 14:51 attending note; Patient seen and examined with resident in ER. patient is alert and awake. Complaining of epigastric pain. Complaining of nausea and vomiting. Denies any fevers, chills. Denies any urinary, bowel symptoms. Patient is a 28 year old female with PMH of pancreatitis, alcohol abuse, and hydradenitis suppurativa presents to [facility] with complaint of abdominal pain. Patient states that the pain started this morning and starts in the epigastric region and radiates to her back. patient is admitted for alcohoic pancreatitis. patient with a long-standing history of alcohol abuse and multiple admissions for pancreatitis. started on IV fluids. Nothing by mouth. Pain management IV morphine. alcohol abuse; complete alcohol cessation is strongly advised. patient will be referred to AA meetings/rehabilitationon discharge. Patient has been in AA rehabilitation before. continue IV banana bag. Continue IV ativan as needed. Upon discharge patient will be referred to [facility] clinic.
[2018-06-09 21:47] LABS: ACETAMINOPHEN < 10.0 ug/ml (10.0-20.0); SALICYLATE < 1 mg/dL (2.0-20.0)
[2018-06-10] MEDS ORDERED: Morphine 2 mg/ml ISec IVP STA
[2018-06-10] MEDS ORDERED: Multivitamin (MVI) 10 ML, Thiamine 100 MG, Folic Acid 1 MG in Sodium Chloride 0.9% 1,00... IV ONE (01:57)
[2018-06-10] MEDS: HYDROmorphone 2 mg/ml ISec IVP PRN ×2 (03:36→06:39)
[2018-06-10 06:54] LABS: ALB/GLOB RATIO 1.1 (1.1-1.8); ALBUMIN 3.8 g/dL (3.0-4.8); ALT/SGPT 87 U/L (7-56); AST/SGOT 125 U/L (14-36); BLOOD UREA NITROGEN 3 mg/dL (7-21); CALCIUM 8.4 mg/dL (8.4-10.5); GFR NON-AFRICAN AMERICAN > 60
[2018-06-10 07:04] LABS: HEMOGLOBIN 10.8 g/dL (12.0-16.0); MEAN CELL VOLUME 93.4 fl (80.0-105.0); MEAN CORPUSCULAR HEMOGLOBIN 29.9 pg (25.0-35.0); MEAN PLATELET VOLUME 9.2 fl (7.0-11.0); RBC 3.61 10^6/uL (3.5-6.1); WHITE BLOOD COUNT 7.7 10^3/uL (4.5-11.0)
[2018-06-10] MEDS ORDERED: Magnesium Sulfate 2 gm/50 ml 2 GM/50 ML BAG IVPB ONE (07:48)
[2018-06-10] MEDS ORDERED: Morphine 4 mg/ml ISec IVP PRN (08:39)
[2018-06-10] MEDS ORDERED: Sodium Chloride 0.9% 1,000 ML IV SCH (08:45)
[2018-06-10] MEDS: Morphine 2 mg/ml ISec IVP PRN ×4 (09:19→22:09)
--- NOTE | 2018-06-10 10:21 | CARD ---
APPROVED REPORT Date of service: 06/09/2018 EKG Measurement Heart [id number] <Conclusion> Sinus tachycardia Nonspecific T wave changes Abnormal ECG
[2018-06-10] MEDS: Sodium Chloride 0.9% 1,000 ML IV SCH ×3 (12:17→23:50)
[2018-06-10 12:37] LABS: HEPATITIS B SURFACE AG Negative (NEGATIVE)
[2018-06-10 12:43] LABS: HEPATITIS A IGM NEGATIVE (NEGATIVE); HEPATITIS B CORE AB NEGATIVE (NEGATIVE)
[2018-06-10 12:55] LABS: HEPATITIS C ANTIBODY NEGATIVE (NEGATIVE)
--- NOTE | 2018-06-10 13:14 | CP.PCM.PN ---
<Mehran Pang - Last Filed: 06/10/18 13:11> Subjective - Date & Time of Evaluation Date of Evaluation: 06/10/18 Time of Evaluation: 13:11 - Subjective Subjective: INTERNAL MEDICINE PROGRESS NOTE FOR DR. EMORY Pang PGY1 Pt seen and examined at bedside this am. No acute nursing events overnight. Pt reports continued abdominal pain. She is asking or dilaudid medication. SHe reports pain with movement. She reports she drank half a pint of vodka 2 days ago. 12 point ROS is otherwise negative. Objective - Vital Signs/Intake and Output Vital Signs (last 24 hours): Temp Pulse Resp BP Pulse Ox 98.9 F 122 H 18 144/102 H 98 06/10/18 12:00 06/10/18 12:00 06/10/18 12:00 06/09/18 14:50 06/10/18 06:00 Intake and Output: 06/10/18 06/10/18 06:59 18:59 Intake Total 480 Balance 480 - Medications Medications: Current Medications Sodium Chloride (Sodium Chloride 0.9%) 1,000 mls @ 150 mls/hr IV .Q6H40M [facility] Last Admin: 06/10/18 12:17 Dose: 150 mls/hr Lorazepam (Ativan) 1 mg IVP Q2H PRN; Protocol PRN Reason: Anxiety Lorazepam (Ativan) 1 mg IVP Q6H [facility]; Protocol Last Admin: 06/10/18 10:30 Dose: Not Given Morphine Sulfate (Morphine) 4 mg IVP Q4H PRN PRN Reason: Pain, severe (8-10) Morphine Sulfate (Morphine) 2 mg IVP Q4H PRN PRN Reason: Pain, moderate (4-7) Last Admin: 06/10/18 09:19 Dose: 2 mg Ondansetron HCl (Zofran Inj) 4 mg IVP Q6H PRN PRN Reason: Nausea/Vomiting Last Admin: 06/09/18 23:13 Dose: 4 mg Pantoprazole Sodium (Protonix Inj) 40 mg IVP DAILY [facility] Last Admin: 06/10/18 09:25 Dose: 40 mg - Labs Labs: 06/10/18 06:25 06/10/18 06:25 - Constitutional Appears: Well, Non-toxic, No Acute Distress - Head Exam Head Exam: NORMAL INSPECTION, NORMOCEPHALIC - Eye Exam Eye Exam: EOMI, Normal appearance - ENT Exam ENT Exam: Mucous Membranes Moist - Neck Exam Neck Exam: Normal Inspection - Respiratory Exam Respiratory Exam: Clear to Ausculation Bilateral, NORMAL BREATHING PATTERN - Cardiovascular Exam Cardiovascular Exam: Tachycardia, +S1, +S2 - GI/Abdominal Exam GI & Abdominal Exam: Guarding, Soft. absent: Tenderness, Rebound - Extremities Exam Extremities Exam: Normal Inspection. absent: Calf Tenderness - Back Exam Back Exam: NORMAL INSPECTION - Neurological Exam Neurological Exam: Alert, Awake, Oriented x3 - Psychiatric Exam Psychiatric exam: Normal Affect, Normal Mood - Skin Skin Exam: Dry, Intact, Warm Assessment and Plan - Assessment and Plan (Free Text) Assessment: 28 yo F with PMH of pancreatitis, alcohol abuse, and hydradenitis suppurativa is admitted evaluation and treatment for acute pancreatitis and alcohol intoxication with probable withdrawal. Plan: Acute Pancreatitis Lipase increasing. Pt has abdominal pain + Lipase >3x normal limit. Can clinically diagnosis acute pancreatitis Pt recently had abdominal CT on 05/28/18 s/p 2 Banana Bags NS @ 150 mls/hr Zofran for nausea Morphine for pain NPO Alcohol Abuse/Withdrawal Alcohol level 161 s/p 2 banana bags NS @ 150 mls/hr CIWA protocol Ativan prn and chance Replete electrolytes prn Transaminitis Likely 2/2 alcohol abuse UDS negative T.olga wnl Tylenol and ASA ordered Acute hep panel ordered GI/DVT PPx Protonix IVP SCDs Case seen, examined and discussed with attending physician, Dr. Jauregui <Marion Jauregui - Last Filed: 06/10/18 14:58> Objective - Vital Signs/Intake and Output Vital Signs (last 24 hours): Temp Pulse Resp BP Pulse Ox 98.9 F 122 H 18 144/102 H 98 06/10/18 12:00 06/10/18 12:00 06/10/18 12:00 06/09/18 14:50 06/10/18 06:00 Intake and Output: 06/10/18 06/10/18 06:59 18:59 Intake Total 480 Balance 480 - Medications Medications: Current Medications Sodium Chloride (Sodium Chloride 0.9%) 1,000 mls @ 150 mls/hr IV .Q6H40M [facility] Last Admin: 06/10/18 12:17 Dose: 150 mls/hr Lorazepam (Ativan) 1 mg IVP Q2H PRN; Protocol PRN Reason: Anxiety Lorazepam (Ativan) 1 mg IVP Q6H [facility]; Protocol Last Admin: 06/10/18 10:30 Dose: Not Given Morphine Sulfate (Morphine) 4 mg IVP Q4H PRN PRN Reason: Pain, severe (8-10) Morphine Sulfate (Morphine) 2 mg IVP Q4H PRN PRN Reason: Pain, moderate (4-7) Last Admin: 06/10/18 14:30 Dose: 2 mg Ondansetron HCl (Zofran Inj) 4 mg IVP Q6H PRN PRN Reason: Nausea/Vomiting Last Admin: 06/09/18 23:13 Dose: 4 mg Pantoprazole Sodium (Protonix Inj) 40 mg IVP DAILY [facility] Last Admin: 06/10/18 09:25 Dose: 40 mg - Labs Labs: 06/10/18 06:25 06/10/18 06:25 Attending/Attestation - Attestation I have personally seen and examined this patient.: Yes I have fully participated in the care of the patient.: Yes I have reviewed all pertinent clinical information, including history, physical exam and plan: Yes Notes (Text): 06/10/18 14:57 attending note; Patient seen and examined with resident. patient is alert and awake. Complaining of epigastric pain. improving slowly. Complaining of nausea. Denies any fevers, chills. Denies any urinary, bowel symptoms. Patient is a 28 year old female with PMH of pancreatitis, alcohol abuse is admitted for alcoholic pancreatitis. patient with a long-standing history of alcohol abuse and multiple admissions for pancreatitis. started on IV fluids. Nothing by mouth. Pain management IV morphine. alcohol abuse; complete alcohol cessation is strongly advised. patient will be referred to AA meetings/rehabilitationon discharge. Patient has been in AA rehabilitation before. continue IV banana bag. Continue IV ativan. still with elevated lipase. We'll start clear liquids for dinner if pain improves. Upon discharge patient will be referred to [facility] clinic.
[2018-06-10 23:49] VITALS: RESP 20
[2018-06-11] MEDS: Sodium Chloride 0.9% 1,000 ML IV SCH ×5 (01:58→20:13)
[2018-06-11] MEDS: Morphine 2 mg/ml ISec IVP PRN ×4 (06:31→23:42)
[2018-06-11 07:31] LABS: HEMOGLOBIN 10.6 g/dL (12.0-16.0); MEAN CELL VOLUME 92.9 fl (80.0-105.0); MEAN CORPUSCULAR HEMOGLOBIN 30.3 pg (25.0-35.0); MEAN CORPUSCULAR HGB CONC 32.6 g/dl (31.0-37.0); MEAN PLATELET VOLUME 9.3 fl (7.0-11.0); RBC 3.5 10^6/uL (3.5-6.1); RED CELL DISTRIBUTION WIDTH 20.2 % (11.5-14.5); WHITE BLOOD COUNT 6.3 10^3/uL (4.5-11.0)
[2018-06-11 08:04] LABS: ALBUMIN 3.7 g/dL (3.0-4.8); ALT/SGPT 56 U/L (7-56); AST/SGOT 53 U/L (14-36); BLOOD UREA NITROGEN < 2 mg/dL (7-21); CALCIUM 8.7 mg/dL (8.4-10.5); GFR NON-AFRICAN AMERICAN > 60; LIPASE 468 U/L (23-300)
[2018-06-11] MEDS ORDERED: Potassium Chloride 20 mEq ER Tab PO STA (08:27)
[2018-06-11] MEDS: Morphine 4 mg/ml ISec IVP PRN ×2 (10:43→16:50)
--- NOTE | 2018-06-11 13:32 | CP.PCM.PN ---
<Mehran Pang - Last Filed: 06/11/18 13:26> Subjective - Date & Time of Evaluation Date of Evaluation: 06/11/18 Time of Evaluation: 13:26 - Subjective Subjective: INTERNAL MEDICINE PROGRESS NOTE FOR DR. EMORY Pang PGY1 Pt seen and examined at bedside this am. No acute nursing events overnight. She began to tolerate fluids. She report continued abdominal pain however other 12 point ROS is unremarkable. Objective - Vital Signs/Intake and Output Vital Signs (last 24 hours): Temp Pulse Resp BP Pulse Ox 98.3 F 96 H 20 138/95 H 99 06/11/18 11:33 06/11/18 11:33 06/11/18 11:33 06/11/18 11:33 06/11/18 05:10 Intake and Output: 06/11/18 06/11/18 06:59 18:59 Intake Total 1800 Balance 1800 - Medications Medications: Current Medications Sodium Chloride (Sodium Chloride 0.9%) 1,000 mls @ 150 mls/hr IV .Q6H40M [facility] Last Admin: 06/11/18 13:08 Dose: Not Given Lorazepam (Ativan) 1 mg IVP Q2H PRN; Protocol PRN Reason: Anxiety Last Admin: 06/10/18 20:02 Dose: 1 mg Lorazepam (Ativan) 1 mg PO Q8H [facility]; Protocol Last Admin: 06/11/18 10:44 Dose: Not Given Morphine Sulfate (Morphine) 2 mg IVP Q6H PRN PRN Reason: Pain, severe (8-10) Last Admin: 06/11/18 10:43 Dose: 2 mg Ondansetron HCl (Zofran Inj) 4 mg IVP Q6H PRN PRN Reason: Nausea/Vomiting Last Admin: 06/10/18 22:09 Dose: 4 mg Pantoprazole Sodium (Protonix Inj) 40 mg IVP DAILY [facility] Last Admin: 06/11/18 09:00 Dose: 40 mg - Labs Labs: 06/11/18 07:15 06/11/18 07:15 - Additional Findings Additional findings: - Constitutional Appears: Well, Non-toxic, No Acute Distress - Head Exam Head Exam: NORMAL INSPECTION, NORMOCEPHALIC - Eye Exam Eye Exam: EOMI, Normal appearance - ENT Exam ENT Exam: Mucous Membranes Moist - Neck Exam Neck Exam: Normal Inspection - Respiratory Exam Respiratory Exam: Clear to Ausculation Bilateral, NORMAL BREATHING PATTERN - Cardiovascular Exam Cardiovascular Exam: Tachycardia, +S1, +S2 - GI/Abdominal Exam GI & Abdominal Exam: Guarding, Soft. absent: Tenderness, Rebound - Extremities Exam Extremities Exam: Normal Inspection. absent: Calf Tenderness - Back Exam Back Exam: NORMAL INSPECTION - Neurological Exam Neurological Exam: Alert, Awake, Oriented x3 - Psychiatric Exam Psychiatric exam: Normal Affect, Normal Mood - Skin Skin Exam: Dry, Intact, Warm Assessment and Plan - Assessment and Plan (Free Text) Assessment: 28 yo F with PMH of pancreatitis, long-standing history of alcohol abuse, hydradenitis suppurativa, multiple admissions for pancreatitis is admitted evaluation and treatment for acute pancreatitis and alcohol intoxication with probable withdrawal Plan: Acute Pancreatitis Lipase downtrending Pt recently had abdominal CT on 05/28/18 continue NS @ 150 mls/hr Zofran for nausea Morphine for pain, taper off morphine start liquid diet today Alcohol Abuse/Withdrawal Alcohol level 161gs NS @ 150 mls/hr CIWA protocol Ativan prn and chance. Switch to po scheduled ativan Pt will be referred to AA meetings/rehab. She's been to AA rehab Transaminitis Likely 2/2 alcohol abuse UDS negative T.olga wnl Tylenol and ASA ordered Acute hep panel ordered GI/DVT PPx Protonix IVP SCDs Case seen, examined and discussed with attending physician, Dr. Jauregui <Marion Jauregui - Last Filed: 06/12/18 16:41> Objective - Vital Signs/Intake and Output Vital Signs (last 24 hours): Temp Pulse Resp BP Pulse Ox 98.4 F 89 20 138/99 H 98 06/12/18 12:00 06/12/18 12:00 06/12/18 12:00 06/12/18 12:00 06/12/18 06:00 Intake and Output: 06/12/18 06/12/18 06:59 18:59 Intake Total 1999 1550 Output Total 0 8 Balance 1999 1542 - Labs Labs: 06/12/18 06:00 06/12/18 06:00 Attending/Attestation - Attestation I have personally seen and examined this patient.: Yes I have fully participated in the care of the patient.: Yes I have reviewed all pertinent clinical information, including history, physical exam and plan: Yes Notes (Text): 06/12/18 16:40 attending note; Patient seen and examined with resident. patient is alert and awake. Complaining of mild epigastric pain. improving slowly. tolerating diet. Denies any fevers, chills. Denies any urinary, bowel symptoms. Patient is a 28 year old female with PMH of pancreatitis, alcohol abuse is admitted for alcoholic pancreatitis. patient with a long-standing history of alcohol abuse and multiple admissions for pancreatitis. Treated with IV fluids.currently tolerating diet. alcohol abuse; complete alcohol cessation is strongly advised. patient will be referred to AA meetings/rehabilitationon discharge. Patient has been in AA rehabilitation before. discharge home if tolerating diet today. Upon discharge patient will be referred to [facility] [place]
[2018-06-12] MEDS: Sodium Chloride 0.9% 1,000 ML IV SCH (04:26)
[2018-06-12] MEDS: Morphine 2 mg/ml ISec IVP PRN ×2 (04:44→08:56)
[2018-06-12 06:37] VITALS: O2SAT 98
[2018-06-12 07:00] LABS: HEMOGLOBIN 9.6 g/dL (12.0-16.0); MEAN CELL VOLUME 92.4 fl (80.0-105.0); MEAN CORPUSCULAR HEMOGLOBIN 30.3 pg (25.0-35.0); MEAN CORPUSCULAR HGB CONC 32.8 g/dl (31.0-37.0); MEAN PLATELET VOLUME 9.3 fl (7.0-11.0); RBC 3.17 10^6/uL (3.5-6.1); WHITE BLOOD COUNT 6.3 10^3/uL (4.5-11.0)
[2018-06-12 07:27] LABS: ALBUMIN 3.3 g/dL (3.0-4.8); ALT/SGPT 44 U/L (7-56); AST/SGOT 34 U/L (14-36); BLOOD UREA NITROGEN < 2 mg/dL (7-21); CALCIUM 8.5 mg/dL (8.4-10.5); GFR NON-AFRICAN AMERICAN > 60
[2018-06-12] MEDS ORDERED: Potassium Chloride 20 mEq ER Tab PO STA (08:43)
[2018-06-12] MEDS ORDERED: Magnesium Sulfate 2 gm/50 ml 2 GM/50 ML BAG IVPB ONE (08:55)
[2018-06-12 12:17] VITALS: BP 138/99; PULSE 89; TEMP 98.4
--- NOTE | 2018-06-12 17:23 | CP.PCM.DIS ---
<Mehran Pang - Last Filed: 06/12/18 17:00> Provider - Provider Date of Admission: 06/09/18 18:04 Attending physician: Marion Jauregui MD Primary care physician: NO PRIMARY CARE PROVIDER Time Spent in preparation of Discharge (in minutes): 45 Diagnosis - Discharge Diagnosis (1) Abdominal pain Status: Acute (2) Acute alcoholic pancreatitis Status: Acute Priority: High (3) Axillary hidradenitis suppurativa Status: Acute (4) Transaminitis Status: Acute Hospital Course - Lab Results Lab Results: Most Recent Lab Values WBC 6.3 10^3/uL (4.5-11.0) 06/12/18 06:00 RBC 3.17 10^6/uL (3.5-6.1) L 06/12/18 06:00 Hgb 9.6 g/dL (12.0-16.0) L 06/12/18 06:00 Hct 29.3 % (36.0-48.0) L 06/12/18 06:00 MCV 92.4 fl (80.0-105.0) 06/12/18 06:00 MCH 30.3 pg (25.0-35.0) 06/12/18 06:00 MCHC 32.8 g/dl (31.0-37.0) 06/12/18 06:00 RDW 20.0 % (11.5-14.5) H 06/12/18 06:00 Plt Count 334 10^3/uL (120.0-450.0) 06/12/18 06:00 MPV 9.3 fl (7.0-11.0) 06/12/18 06:00 Gran % 44.9 % (50.0-68.0) L 06/09/18 16:57 Lymph % (Auto) 46.9 % (22.0-35.0) H 06/09/18 16:57 Dubois % (Auto) 6.6 % (1.0-6.0) H 06/09/18 16:57 Eos % (Auto) 1.1 % (1.5-5.0) L 06/09/18 16:57 Baso % (Auto) 0.5 % (0.0-3.0) 06/09/18 16:57 Gran # 2.94 (1.4-6.5) 06/09/18 16:57 Lymph # (Auto) 3.1 (1.2-3.4) 06/09/18 16:57 Dubois # (Auto) 0.4 (0.1-0.6) 06/09/18 16:57 Eos # (Auto) 0.1 (0.0-0.7) 06/09/18 16:57 Baso # (Auto) 0.03 K/mm3 (0.0-2.0) 06/09/18 16:57 Sodium 136 mmol/L (132-148) 06/12/18 06:00 Potassium 3.4 mmol/L (3.6-5.0) L 06/12/18 06:00 Chloride 103 mmol/L (98-107) 06/12/18 06:00 Carbon Dioxide 25 mmol/L (21-33) 06/12/18 06:00 Anion Gap 11 (10-20) 06/12/18 06:00 BUN < 2 mg/dL (7-21) L 06/12/18 06:00 Creatinine 0.5 mg/dl (0.7-1.2) L 06/12/18 06:00 Est GFR ( Amer) > 60 06/12/18 06:00 Est GFR (Non-Af Amer) > 60 06/12/18 06:00 Random Glucose 99 mg/dL (70-110) 06/12/18 06:00 Calcium 8.5 mg/dL (8.4-10.5) 06/12/18 06:00 Phosphorus 4.2 mg/dL (2.5-4.5) 06/12/18 06:00 Magnesium 1.5 mg/dL (1.7-2.2) L 06/12/18 06:00 Total Bilirubin 0.5 mg/dL (0.2-1.3) 06/12/18 06:00 AST 34 U/L (14-36) 06/12/18 06:00 ALT 44 U/L (7-56) 06/12/18 06:00 Alkaline Phosphatase 96 U/L (38-126) 06/12/18 06:00 Troponin I < 0.01 ng/mL 06/09/18 16:57 Total Protein 6.6 g/dL (5.8-8.3) 06/12/18 06:00 Albumin 3.3 g/dL (3.0-4.8) 06/12/18 06:00 Globulin 3.3 gm/dL 06/12/18 06:00 Albumin/Globulin Ratio 1.0 (1.1-1.8) L 06/12/18 06:00 Lipase 468 U/L (23-300) H 06/11/18 07:15 Salicylates < 1 mg/dL (2.0-20.0) L 06/09/18 17:00 Urine Opiates Screen Negative (NEGATIVE) 06/09/18 16:57 Urine Methadone Screen Negative (NEGATIVE) 06/09/18 16:57 Acetaminophen < 10.0 ug/ml (10.0-20.0) L 06/09/18 17:00 Ur Barbiturates Screen Negative (NEGATIVE) 06/09/18 16:57 Ur Phencyclidine Scrn Negative (NEGATIVE) 06/09/18 16:57 Ur Amphetamines Screen Negative (NEGATIVE) 06/09/18 16:57 U Benzodiazepines Scrn Negative (NEGATIVE) 06/09/18 16:57 U Oth Cocaine Metabols Negative (NEGATIVE) 06/09/18 16:57 U Cannabinoids Screen Negative (NEGATIVE) 06/09/18 16:57 Alcohol, Quantitative 161 mg/dL (0-10) H 06/09/18 16:57 Hepatitis A IgM Ab Negative (NEGATIVE) 06/09/18 17:00 Hep Bs Antigen Negative (NEGATIVE) 06/09/18 17:00 Hep B Core IgM Ab Negative (NEGATIVE) 06/09/18 17:00 Hepatitis C Antibody Negative (NEGATIVE) 06/09/18 17:00 - Hospital Course Hospital Course: Upon Admission 28 yo F with PMH of pancreatitis, alcohol abuse, and hydradenitis suppurativa [place] [facility] complaint of abdominal pain. Patient states that the pain started this morning and starts in the epigastric region and radiates to her back. She also has associated nausea, vomiting, and watery diarrhea. Patient states she has had pancreatitis several times in the past and states that her symptoms now are similar to those occasions. Patient admits to heavy drinking, despite having gone to AA meetings and detox in the past. Patient denies CP, SOB, fever, chills, JULES, dizziness, dysuria, melena. Hospital Course Pt was clinically diagnosed and treated with acute pancreatitis secondary to chronic alcohol abuse. CT Abdomen was not repeated as patient was recently admitted with similar symptoms. Pt was also treated for ETOH withdrawal with scheduled and prn ativan. Pain control was given with morphine, nausea treated with zofran. She was hydrated with banana bags initially and switched to normal saline. Lipase was initially 428, increased to 918 and subsequently declined with further bowel rest and fluid resuscitation. Throughout hospital course, pts pain had improved, she was tolerating her diet, and she was not withdrawing from alcohol Upon Discharge: Pts symptoms have improved. Abdominal pain has began to resolve. She was not withdrawing from alcohol. Her vital signs are stable, she is hemodynamically stable. She has been [facility]. Discussion in detail was made regarding alcohol cessation. She was given instructions for referral to alcoholics anonymous. Discharge Exam - Head Exam Head Exam: NORMAL INSPECTION, NORMOCEPHALIC - Eye Exam Eye Exam: EOMI, Normal appearance - ENT Exam ENT Exam: Mucous Membranes Moist - Neck Exam Neck exam: Normal Inspection - Respiratory Exam Respiratory Exam: NORMAL BREATHING PATTERN, UNREMARKABLE - Cardiovascular Exam Cardiovascular Exam: REGULAR RHYTHM, +S1, +S2 - GI/Abdominal Exam GI & Abdominal Exam: Soft, Unremarkable - Extremities Exam Extremities exam: normal inspection - Back Exam Back exam: NORMAL INSPECTION - Neurological Exam Neurological exam: Alert, Oriented x3 - Psychiatric Exam Psychiatric exam: Normal Affect, Normal Mood - Skin Skin Exam: Dry, Intact, Warm Discharge Plan - Discharge Medications Prescriptions: oxyCODONE/Acetaminophen [Percocet 5/325 mg Tab] 1 ea PO TID PRN #6 tab PRN Reason: Pain, Severe (8-10) - Follow Up Plan Condition: STABLE Disposition: HOME/ ROUTINE Instructions: Alcohol Use - When Is Drinking a Problem?, Soft Diet, Quitting Smoking for Teens and Young Adults, Pancreatitis (DC), Alcohol Withdrawal (DC), Drugs to Help You Stop Using Tobacco Additional Instructions: Please follow these instruction upon discharge from the hospital: Please follow up with your primary care physician within 1 week of discharge from the hospital You have an appointment with the [facility] FridayJune 22 at 4pm. If you do not have a primary care physician, please make an appointment with the [facility] at [phone] Please visit the nearest Alcoholics Anonymous within the next week. Please refrain from consuming alcohol. Please eat a diet consisting of soft food. Please refrain from acidic and fatty foods. If your symptoms return, please return to the nearest emergency room Referrals: [facility] [place] [facility] [place] PCP,NO [Primary Care Provider] - <Marion Jauregui - Last Filed: 06/12/18 17:34> Provider - Provider Date of Admission: 06/09/18 18:04 Attending physician: Marion Jauregui MD Primary care physician: NO PRIMARY CARE PROVIDER Hospital Course - Lab Results Lab Results: Most Recent Lab Values WBC 6.3 10^3/uL (4.5-11.0) 06/12/18 06:00 RBC 3.17 10^6/uL (3.5-6.1) L 06/12/18 06:00 Hgb 9.6 g/dL (12.0-16.0) L 06/12/18 06:00 Hct 29.3 % (36.0-48.0) L 06/12/18 06:00 MCV 92.4 fl (80.0-105.0) 06/12/18 06:00 MCH 30.3 pg (25.0-35.0) 06/12/18 06:00 MCHC 32.8 g/dl (31.0-37.0) 06/12/18 06:00 RDW 20.0 % (11.5-14.5) H 06/12/18 06:00 Plt Count 334 10^3/uL (120.0-450.0) 06/12/18 06:00 MPV 9.3 fl (7.0-11.0) 06/12/18 06:00 Gran % 44.9 % (50.0-68.0) L 06/09/18 16:57 Lymph % (Auto) 46.9 % (22.0-35.0) H 06/09/18 16:57 Dubois % (Auto) 6.6 % (1.0-6.0) H 06/09/18 16:57 Eos % (Auto) 1.1 % (1.5-5.0) L 06/09/18 16:57 Baso % (Auto) 0.5 % (0.0-3.0) 06/09/18 16:57 Gran # 2.94 (1.4-6.5) 06/09/18 16:57 Lymph # (Auto) 3.1 (1.2-3.4) 06/09/18 16:57 Dubois # (Auto) 0.4 (0.1-0.6) 06/09/18 16:57 Eos # (Auto) 0.1 (0.0-0.7) 06/09/18 16:57 Baso # (Auto) 0.03 K/mm3 (0.0-2.0) 06/09/18 16:57 Sodium 136 mmol/L (132-148) 06/12/18 06:00 Potassium 3.4 mmol/L (3.6-5.0) L 06/12/18 06:00 Chloride 103 mmol/L (98-107) 06/12/18 06:00 Carbon Dioxide 25 mmol/L (21-33) 06/12/18 06:00 Anion Gap 11 (10-20) 06/12/18 06:00 BUN < 2 mg/dL (7-21) L 06/12/18 06:00 Creatinine 0.5 mg/dl (0.7-1.2) L 06/12/18 06:00 Est GFR ( Amer) > 60 06/12/18 06:00 Est GFR (Non-Af Amer) > 60 06/12/18 06:00 Random Glucose 99 mg/dL (70-110) 06/12/18 06:00 Calcium 8.5 mg/dL (8.4-10.5) 06/12/18 06:00 Phosphorus 4.2 mg/dL (2.5-4.5) 06/12/18 06:00 Magnesium 1.5 mg/dL (1.7-2.2) L 06/12/18 06:00 Total Bilirubin 0.5 mg/dL (0.2-1.3) 06/12/18 06:00 AST 34 U/L (14-36) 06/12/18 06:00 ALT 44 U/L (7-56) 06/12/18 06:00 Alkaline Phosphatase 96 U/L (38-126) 06/12/18 06:00 Troponin I < 0.01 ng/mL 06/09/18 16:57 Total Protein 6.6 g/dL (5.8-8.3) 06/12/18 06:00 Albumin 3.3 g/dL (3.0-4.8) 06/12/18 06:00 Globulin 3.3 gm/dL 06/12/18 06:00 Albumin/Globulin Ratio 1.0 (1.1-1.8) L 06/12/18 06:00 Lipase 468 U/L (23-300) H 06/11/18 07:15 Salicylates < 1 mg/dL (2.0-20.0) L 06/09/18 17:00 Urine Opiates Screen Negative (NEGATIVE) 06/09/18 16:57 Urine Methadone Screen Negative (NEGATIVE) 06/09/18 16:57 Acetaminophen < 10.0 ug/ml (10.0-20.0) L 06/09/18 17:00 Ur Barbiturates Screen Negative (NEGATIVE) 06/09/18 16:57 Ur Phencyclidine Scrn Negative (NEGATIVE) 06/09/18 16:57 Ur Amphetamines Screen Negative (NEGATIVE) 06/09/18 16:57 U Benzodiazepines Scrn Negative (NEGATIVE) 06/09/18 16:57 U Oth Cocaine Metabols Negative (NEGATIVE) 06/09/18 16:57 U Cannabinoids Screen Negative (NEGATIVE) 06/09/18 16:57 Alcohol, Quantitative 161 mg/dL (0-10) H 06/09/18 16:57 Hepatitis A IgM Ab Negative (NEGATIVE) 06/09/18 17:00 Hep Bs Antigen Negative (NEGATIVE) 06/09/18 17:00 Hep B Core IgM Ab Negative (NEGATIVE) 06/09/18 17:00 Hepatitis C Antibody Negative (NEGATIVE) 06/09/18 17:00 Attending/Attestation - Attestation I have personally seen and examined this patient.: Yes I have fully participated in the care of the patient.: Yes I have reviewed all pertinent clinical information, including history, physical exam and plan: Yes Notes (Text): 06/12/18 17:33 attending note; Patient seen and examined with resident. patient is alert and awake. Complaining of mild epigastric pain. improved significantly. tolerating diet. Denies any fevers, chills. Denies any urinary, bowel symptoms. Patient is a 28 year old female with PMH of pancreatitis, alcohol abuse is admitted for alcoholic pancreatitis. patient with a long-standing history of alcohol abuse and multiple admissions for pancreatitis. Treated with IV fluids.currently tolerating diet. alcohol abuse; complete alcohol cessation is strongly advised. patient will be referred to AA meetings/rehabilitationon discharge. Patient has been in AA rehabilitation before. discharge home today. Upon discharge patient [place] be [place] [facility] [place]. appointment made for june 22. 06/12/18 17:33
== END 2018-06-12 13:34 | disposition home or self-care (01) | DRG 282 ==
LOC: ED 14:16 → ERH 18:04 → 2RSO 06-10 00:24
PROVIDERS: ADMIT Internal Medicine; ATTEND Internal Medicine
DX: K85.20 Alcohol induced acute pancreatitis without necrosis or infection (principal); F10.239 Alcohol dependence with withdrawal, unspecified; F17.210 Nicotine dependence, cigarettes, uncomplicated; K29.20 Alcoholic gastritis without bleeding

== ENCOUNTER 2018-06-24 00:46 | Inpatient (IN) | payer MEDICAID, OTHER ==
[2018-06-24] MEDS ORDERED: Sodium Chloride 0.9% 1,000 ML IV STA (02:14)
--- NOTE | 2018-06-24 02:14 | ED PDOC ---
Arrival/HPI - General Chief Complaint: Abdominal Pain Time Seen by Provider: 06/24/18 01:13 Historian: Patient - History of Present Illness Narrative History of Present Illness (Text): 06/24/18 02:13 Tsering Merlos is a 28 year old female, whose past medical history includes pancreatitis, alcohol abuse, and hydradenitis suppuruative, who presents to the Emergency department complaining of abdominal pain. Patient states she has been experiencing upper abdominal pain with associated nausea, vomiting, and diarrhea since yesterday morning after waking up. Patient notes she last consumed alcohol was days prior and notes symptoms are similar to previous episodes of pancreatitis. Patient denies any fever, chills, chest pain, shortness of breath, urinary symptoms, back pain, neck pain, headache, dizziness, or any other complaints. Symptom Onset: Gradual Symptom Course: Unchanged Activities at Onset: Light Context: Home Past Medical History - Provider Review Nursing Documentation Reviewed: Yes - Infectious Disease Hx of Infectious Diseases: None - Tetanus Immunization Tetanus Immunization: Unknown - Cardiac Hx Cardiac Disorders: No - Pulmonary Hx Respiratory Disorders: No - Neurological Hx Neurological Disorder: No - HEENT Hx HEENT Disorder: No - Renal Hx Renal Disorder: No - Endocrine/Metabolic Hx Endocrine Disorders: No - Hematological/Oncological Hx Blood Disorders: No - Integumentary Hx Dermatological Disorder: No - Musculoskeletal/Rheumatological Hx Musculoskeletal Disorders: No Hx Falls: No - Gastrointestinal Hx Gastrointestinal Disorders: Yes Hx Pancreatitis: Yes - Genitourinary/Gynecological Hx Genitourinary Disorders: No - Psychiatric Hx Psychophysiologic Disorder: No Hx Substance Use: No - Surgical History Other/Comment: Cyst removal / ABCESS bilat armpit - Anesthesia Hx Anesthesia: Yes Hx Anesthesia Reactions: No Hx Malignant Hyperthermia: No Family/Social History - Physician Review Nursing Documentation Reviewed: Yes Family/Social History: Unknown Family HX Smoking Status: Heavy Smoker > 10 Cigarettes Daily Hx Alcohol Use: Yes (1 [place] DAILY) Hx Substance Use: No Allergies/Home Meds Allergies/Adverse Reactions: Allergies No Known Allergies Allergy (Verified 06/09/18 14:52) Review of Systems - Physician Review All systems were reviewed & negative as marked: Yes - Review of Systems Constitutional: Normal. absent: Fevers Eyes: Normal ENT: Normal Respiratory: Normal. absent: SOB, Cough Cardiovascular: Normal. absent: Chest Pain Gastrointestinal: Abdominal Pain, Diarrhea, Nausea, Vomiting Genitourinary Female: Normal. absent: Dysuria, Frequency, Hematuria, Urine Output Changes Musculoskeletal: Normal. absent: Back Pain, Neck Pain Skin: Normal. absent: Rash Neurological: Normal. absent: Headache, Dizziness Endocrine: Normal Hemo/Lymphatic: Normal Psychiatric: Normal Physical Exam Vital Signs Reviewed: Yes Vital Signs Temp Pulse Resp BP Pulse Ox 06/24/18 01:42 98.6 F 92 H 18 136/87 100 Temperature: Afebrile Blood Pressure: Normal Pulse: Regular Respiratory Rate: Normal Appearance: Positive for: Well-Appearing, Non-Toxic, Comfortable Pain Distress: None Mental Status: Positive for: Alert and Oriented X 3 - Systems Exam Head: Present: Atraumatic, Normocephalic Pupils: Present: PERRL Extroacular Muscles: Present: EOMI Conjunctiva: Present: Normal Mouth: Present: Moist Mucous Membranes Neck: Present: Normal Range of Motion Respiratory/Chest: Present: Clear to Auscultation, Good Air Exchange. No: Respiratory Distress, Accessory Muscle Use Cardiovascular: Present: Regular Rate and Rhythm, Normal S1, S2. No: Murmurs Abdomen: Present: Tenderness (Mild upper abdominal tenderness). No: Distention, Peritoneal Signs Back: Present: Normal Inspection Upper Extremity: Present: Normal Inspection. No: Cyanosis, Edema Lower Extremity: Present: Normal Inspection. No: Edema Neurological: Present: GCS=15, CN II-XII Intact, Speech Normal Skin: Present: Warm, Dry, Normal Color. No: Rashes Psychiatric: Present: Alert, Oriented x 3, Normal Insight, Normal Concentration Medical Decision Making ED Course and Treatment: 06/24/18 02:13 Impression: 28 year old female complaining of upper abdominal pain, nausea, vomiting, and diarrhea since yesterday morning. Plan: -- EKG -- Chest X-ray -- Labs, cardiac enzymes, lipase -- IV fluids -- Toradol -- Zofran -- Pepcid -- Reassess and disposition Prior Visits: Notes and results from previous visits were reviewed. Progress Notes: 06/24/18 03:30 Chest X-ray reviewed, shows no acute processes. 06/24/18 05:09 EKG reviewed, NSR at 91 bpm. Non-specific T wave changes. 06/24/18 05:22 Case discussed with medical accounting clerk outside salesperson, who is aware and agrees with plan. 06/24/18 05:[address] Tinoco, who is aware and agrees with plan. Accepts pt in to hospitalist service. [facility] observation for abdominal pain and pancreatitis. - RAD Interpretation Removable Prosthodontist: ED Physician - EKG Interpretation Interpreted by ED Physician: Yes Type: 12 lead EKG - Scribe Statement The provider has reviewed the documentation as recorded by the Scribe Lucy Gutierrez Provider Scribe Attestation: All medical record entries made by the Scribe were at my direction and personally dictated by me. I have reviewed the chart and agree that the record accurately reflects my personal performance of the history, physical exam, medical decision making, and the department course for this patient. I have also personally directed, reviewed, and agree with the discharge instructions and disposition. Disposition/Present on Arrival - Present on Arrival Any Indicators Present on Arrival: No History of DVT/PE: No History of Uncontrolled Diabetes: No Urinary Catheter: No History of Decub. Ulcer: No History Surgical Site Infection Following: None - Disposition Have Diagnosis and Disposition been Completed?: Yes Diagnosis: Abdominal pain, Pancreatitis Disposition: HOSPITALIZED Disposition Time: 05:24 Patient Problems: Current Active Problems Problem Status Onset Abdominal pain Acute Pancreatitis Chronic Condition: STABLE Referrals: PCP,NO [Primary Care Provider] - Follow up with primary Forms: [employer] ([place])
[2018-06-24 03:09] LABS: MEAN CELL VOLUME 92.2 fl (80.0-105.0); MEAN CORPUSCULAR HEMOGLOBIN 30.2 pg (25.0-35.0); MEAN CORPUSCULAR HGB CONC 32.8 g/dl (31.0-37.0); MEAN PLATELET VOLUME 8.8 fl (7.0-11.0); RBC 3.97 10^6/uL (3.5-6.1); RED CELL DISTRIBUTION WIDTH 21.6 % (11.5-14.5); WHITE BLOOD COUNT 5.2 10^3/uL (4.5-11.0)
[2018-06-24] MEDS ORDERED: Morphine 2 mg/ml ISec IVP STA ×2 (03:21→05:19)
[2018-06-24 03:41] LABS: TROPONIN I < 0.01 ng/mL
[2018-06-24 03:45] LABS: ALBUMIN 4.3 g/dL (3.0-4.8); ALT/SGPT 78 U/L (7-56); AST/SGOT 141 U/L (14-36); BLOOD UREA NITROGEN 8 mg/dL (7-21); CALCIUM 8.9 mg/dL (8.4-10.5); GFR NON-AFRICAN AMERICAN > 60; LIPASE 104 U/L (23-300)
--- NOTE | 2018-06-24 06:16 | CP.PCM.HP ---
<Armida Pearson - Last Filed: 06/24/18 06:51> History of Present Illness - History of Present Illness History of Present Illness: Armida Gardnergary, [facility] This is a 28 year old female with PMH of alcohol abuse, pancreatitis and hydradenitis suppurativa presenting to the ED for one day history of abdominal pain. Pain is located in the epigastric area, radiates to the right side of the back, sharp, rated 10/10 at worst, constant, associated with nausea and several episodes of nonbloody vomiting and diarrhea and says eating exacerbates symptoms and denies any alleviating symptoms. She says symptoms are similar to previous episodes of pancreatitis for which she was admitted twice in the last month. Her last meal was a turkey sandwhich on previous night and last BM was this evening. Her last drink was a few days ago. She denies CP, SOB, fevers, headaches, constipation, urinary complaints, numbness, tingling, swelling, recent travel, sickness, trauma, lifestyle changes including diet and weight loss/gain. 12 point ROS noted here, otherwise unremarkable. PMD: none PMH: pancreatitis, alcohol abuse, and hydradenitis suppurativa SH: admits to smoking 10 ciggs/day for 10 years, drinks about 1/2 pint per day on most days and denies drug use Sx: b/l axilla abscess removal from hydradenitis suppurativa All: NKDA FH: denies Meds: denies Present on Admission - Present on Admission Any Indicators Present on Admission: No Past Patient History - Infectious Disease Hx of Infectious Diseases: None - Tetanus Immunizations Tetanus Immunization: Unknown - Past Medical History & Family History Past Medical History?: Yes - Past Social History Smoking Status: Heavy Smoker > 10 Cigarettes Daily - CARDIAC Hx Cardiac Disorders: No - PULMONARY Hx Respiratory Disorders: No - NEUROLOGICAL Hx Neurological Disorder: No - HEENT Hx HEENT Problems: No - RENAL Hx Chronic Kidney Disease: No - ENDOCRINE/METABOLIC Hx Endocrine Disorders: No - HEMATOLOGICAL/ONCOLOGICAL Hx Blood Disorders: No - INTEGUMENTARY Hx Dermatological Problems: No - MUSCULOSKELETAL/RHEUMATOLOGICAL Hx Musculoskeletal Disorders: No Hx Falls: No - GASTROINTESTINAL Hx Gastrointestinal Disorders: Yes Hx Pancreatitis: Yes - GENITOURINARY/GYNECOLOGICAL Hx Genitourinary Disorders: No - PSYCHIATRIC Hx Psychophysiologic Disorder: No Hx Substance Use: No - SURGICAL HISTORY Other/Comment: Cyst removal / ABCESS bilat armpit - ANESTHESIA Hx Anesthesia: Yes Hx Anesthesia Reactions: No Hx Malignant Hyperthermia: No Meds Allergies/Adverse Reactions: Allergies Allergy/AdvReac Type Severity Reaction Status Date / Time No Known Allergies Allergy Verified 06/09/18 14:52 Physical Exam - Constitutional Appears: No Acute Distress - Head Exam Head Exam: ATRAUMATIC, NORMAL INSPECTION - Eye Exam Eye Exam: EOMI Pupil Exam: PERRL - ENT Exam ENT Exam: Mucous Membranes Dry - Neck Exam Neck exam: Positive for: Normal Inspection - Respiratory Exam Respiratory Exam: Clear to Auscultation Bilateral, NORMAL BREATHING PATTERN. absent: Accessory Muscle Use, Wheezes - Cardiovascular Exam Cardiovascular Exam: REGULAR RHYTHM, +S1, +S2 - GI/Abdominal Exam GI & Abdominal Exam: Normal Bowel Sounds. absent: Firm, Guarding Additional comments: epigastric tenderness to light palpation. Rovsing, obturator and hill signs are negative - Extremities Exam Extremities exam: Positive for: normal inspection, pedal pulses present. Negative for: calf tenderness - Back Exam Back exam: NORMAL INSPECTION. absent: CVA tenderness (L), CVA tenderness (R) - Neurological Exam Neurological exam: Alert, Oriented x3 - Skin Skin Exam: Normal Color, Warm Results - Vital Signs Recent Vital Signs: Last Vital Signs Temp 98.6 F 06/24/18 01:42 Pulse 92 H 06/24/18 01:42 Resp 18 06/24/18 01:42 BP 136/87 06/24/18 01:42 Pulse Ox 100 06/24/18 01:42 - Labs Result Diagrams: 06/24/18 02:50 06/24/18 02:50 Labs: Laboratory Results - last 24 hr 06/24/18 06/24/18 02:50 02:50 WBC 5.2 RBC 3.97 Hgb 12.0 D Hct 36.6 MCV 92.2 MCH 30.2 MCHC 32.8 RDW 21.6 H Plt Count 426 MPV 8.8 Sodium 144 Potassium 4.1 Chloride 106 Carbon Dioxide 24 Anion Gap 18 BUN 8 Creatinine 0.6 L Est GFR ( Amer) > 60 Est GFR (Non-Af Amer) > 60 Random Glucose 121 H Calcium 8.9 Total Bilirubin 0.5 AST 141 H D ALT 78 H Alkaline Phosphatase 113 Lactate Dehydrogenase 929 H Total Creatine Kinase 118 Troponin I < 0.01 Total Protein 8.5 H Albumin 4.3 Globulin 4.2 Albumin/Globulin Ratio 1.0 L Lipase 104 Assessment & Plan - Assessment and Plan (Free Text) Assessment: This is a 28 year old female with PMH of alcohol abuse, pancreatitis and hydradenitis suppurativa presenting to the ED for one day history of abdominal pain. Plan: Intractable abdominal pain -history of pancreatitis with alcohol abuse -lipase WNL with LFT's consistent with alcohol abuse -banana bag -morphine 2mg q6 prn -NPO -pepcid -GI on consult, Dr. Magana -CTAP on 05/28/18 showed hazziness surround pancreas, possible pancreatitis Hx of alcohol abuse -CIWA protocol -banana bag -ativan prn PPX with SCD and pepcid Patient seen and case discussed with attending, Dr. Tinoco <Ryann Tinoco - Last Filed: 06/24/18 07:19> Results - Vital Signs Recent Vital Signs: Last Vital Signs Temp 98.6 F 06/24/18 01:42 Pulse 92 H 06/24/18 01:42 Resp 18 06/24/18 01:42 BP 136/87 06/24/18 01:42 Pulse Ox 100 06/24/18 01:42 - Labs Result Diagrams: 06/24/18 02:50 06/24/18 02:50 Labs: Laboratory Results - last 24 hr 06/24/18 06/24/18 06/24/18 02:50 02:50 02:50 WBC 5.2 RBC 3.97 Hgb 12.0 D Hct 36.6 MCV 92.2 MCH 30.2 MCHC 32.8 RDW 21.6 H Plt Count 426 MPV 8.8 Sodium 144 Potassium 4.1 Chloride 106 Carbon Dioxide 24 Anion Gap 18 BUN 8 Creatinine 0.6 L Est GFR ( Amer) > 60 Est GFR (Non-Af Amer) > 60 Random Glucose 121 H Calcium 8.9 Total Bilirubin 0.5 AST 141 H D ALT 78 H Alkaline Phosphatase 113 Lactate Dehydrogenase 929 H Total Creatine Kinase 118 Troponin I < 0.01 Total Protein 8.5 H Albumin 4.3 Globulin 4.2 Albumin/Globulin Ratio 1.0 L Lipase 104 Alcohol, Quantitative 239 H Attending/Attestation - Attestation I have personally seen and examined this patient.: Yes I have fully participated in the care of the patient.: Yes I have reviewed all pertinent clinical information: Yes Notes (Text): 06/24/18 07:17 Patient seen with the resident by the bedside. Case discussed in detail. Agree with documentation,assessment and plan of treatment.
[2018-06-24] MEDS ORDERED: Multivitamin (MVI) 10 ML, Thiamine 100 MG, Folic Acid 1 MG in Sodium Chloride 0.9% 1,00... IV ONE ×2 (06:23→13:47)
[2018-06-24] MEDS ORDERED: Iohexol 240 (50 ml) ONE (07:18)
--- NOTE | 2018-06-24 08:54 | RAD ---
Date of service: 06/24/2018 HISTORY: upper abdominal pain COMPARISON: No prior. FINDINGS: LUNGS: The lungs are well inflated and clear. PLEURA: No pleural effusions or pneumothorax. CARDIOVASCULAR: The heart is normal in size. No aortic atherosclerotic calcification present. OSSEOUS STRUCTURES: Within normal limits for the patient's age. VISUALIZED UPPER ABDOMEN: Normal. OTHER FINDINGS: None. IMPRESSION: No active pulmonary disease.
[2018-06-24] MEDS: Morphine 2 mg/ml ISec IVP PRN ×3 (08:59→21:40)
[2018-06-24] MEDS ORDERED: Iohexol 350 MG/100 ML VIAL ONE (11:05)
--- NOTE | 2018-06-24 15:09 | CT ---
Date of service: 06/24/2018 PROCEDURE: CT Abdomen and Pelvis with contrast HISTORY: Abdominal pain COMPARISON: 05/28/2018. TECHNIQUE: CT scan of the abdomen and pelvis was performed after administration of intravenous contrast. Oral contrast was not administered. Coronal and sagittal reformatted images were obtained. Contrast dose: 100 mL Omnipaque 350 Radiation dose: Total exam DLP = 230.42 mGy-cm. This CT exam was performed using one or more of the following dose reduction techniques: Automated exposure control, adjustment of the mA and/or kV according to patient size, and/or use of iterative reconstruction technique. FINDINGS: LOWER THORAX: The visualized lungs are clear. LIVER: Normal in size with homogeneous enhancement. Fatty liver. No gross lesion or ductal dilatation. GALLBLADDER AND BILE DUCTS: Well distended. No calcified gallstones, wall thickening or pericholecystic fluid. PANCREAS: Normal in size with homogeneous enhancement. There is redemonstration of indistinct hazy appearance of the pancreatic margins and mild prominence of the ducts. No gross lesion or ductal dilatation. SPLEEN: Normal in size and appearance. ADRENALS: No discrete nodule. KIDNEYS AND URETERS: Normal in size with homogeneous enhancement. No hydronephrosis. No solid mass. VASCULATURE: No aortic aneurysm. BOWEL: Evaluation of the bowel is limited in the absence of oral contrast. The small bowel loops are normal in caliber. There is moderate circumferential mural thickening in the ascending transverse and descending colon. There is also mild circumferential mural thickening in the sigmoid colon and rectum.. No bowel wall thickening or obstruction. APPENDIX: Normal appendix. PERITONEUM: No free fluid. No free air. LYMPH NODES: No enlarged lymph nodes. BLADDER: Well distended and normal in appearance. REPRODUCTIVE: The uterus is normal in size. BONES: No acute fracture. Within normal limits for the patient's age. OTHER FINDINGS: None. IMPRESSION: Moderate circumferential mural thickening diffusely involving the colon and rectum most compatible with nonspecific acute infectious/inflammatory colitis and proctitis. No evidence for bowel obstruction. Fatty liver. Redemonstration of indistinct hazy pancreatic margins which could represent acute pancreatitis in the appropriate clinical setting. Clinical follow-up is advised.
[2018-06-24 17:54] VITALS: BMI 24.1
[2018-06-24] MEDS ORDERED: Influenza Vaccine 60 mcg/0.5 mL SYR (4YR UP) IM ONE (17:54)
[2018-06-24] MEDS ORDERED: Pneumococcal 23-Valent Vaccine IM ONE (17:54)
--- NOTE | 2018-06-24 18:57 | CP.PCM.CON ---
History of Present Illness - History of Present Illness History of Present Illness: PGY6 GI Fellow Consult Note Patient is a 28yo female with PMHx significant for EtOH abuse, multiple episodes of alcoholic pancreatitis and hydradenitis suppurativa who presented to the hospital with abdominal pain. The patient has had numerous admissions for the same, with 4 hospitalizations in the last two months following binge drinking episodes. She states that for the last two days she has had diffuse abdominal pain, worst in the epigastrium radiating to her chest. She became nauseated, vomiting multiple times and admits to worsening watery stool over the last 48 hours with ~10 episodes in the last day. Admits to binge drinking alcohol 2 days prior to admission. Denies any travel, sick contacts. No weight loss, hematochez ia, melena, fever, chills. 12 system ROS performed and negative except where stated PMHx: See HPI PSHx: B/L axilla abscess I&D for hydradenitis FHx: Patient denies any significant family history Social: + Tobacco use, +heavy EtOH use, denies illicit drug use Endo: EGD - 01/2018 - Mild gastritis and hiatal hernia Past Patient History - Infectious Disease Hx of Infectious Diseases: None - Tetanus Immunizations Tetanus Immunization: Unknown - Past Medical History & Family History Past Medical History?: Yes - Past Social History Smoking Status: Current Some Days Smoker - CARDIAC Hx Cardiac Disorders: No - PULMONARY Hx Respiratory Disorders: No - NEUROLOGICAL Hx Neurological Disorder: No - HEENT Hx HEENT Problems: No - RENAL Hx Chronic Kidney Disease: No - ENDOCRINE/METABOLIC Hx Endocrine Disorders: No - HEMATOLOGICAL/ONCOLOGICAL Hx Blood Disorders: No - INTEGUMENTARY Hx Dermatological Problems: No - MUSCULOSKELETAL/RHEUMATOLOGICAL Hx Musculoskeletal Disorders: No Hx Falls: No - GASTROINTESTINAL Hx Gastrointestinal Disorders: Yes Hx Pancreatitis: Yes - GENITOURINARY/GYNECOLOGICAL Hx Genitourinary Disorders: No - PSYCHIATRIC Hx Psychophysiologic Disorder: Yes (ETOH ABUSE-DAILY VODKA) - SURGICAL HISTORY Hx Surgeries: Yes Other/Comment: Cyst removal / ABCESS bilat armpit - ANESTHESIA Hx Anesthesia: Yes Hx Anesthesia Reactions: No Hx Malignant Hyperthermia: No Meds Allergies/Adverse Reactions: Allergies Allergy/AdvReac Type Severity Reaction Status Date / Time No Known Allergies Allergy Verified 06/09/18 14:52 - Medications Medications: Current Medications Famotidine (Pepcid) 20 mg IVP DAILY [facility] Last Admin: 06/24/18 12:49 Dose: 20 mg Folic Acid (Folic Acid) 1 mg PO DAILY [facility] Multivitamins/Vitamin C 10 ml/Thiamine HCl 100 mg/ Folic Acid 1 mg/ Sodium Chloride 1,011.2 mls @ 100 mls/hr IV .Q10H7M ONE Stop: 06/24/18 23:53 Last Admin: 06/24/18 14:52 Dose: 100 mls/hr Ketorolac Tromethamine (Toradol) 15 mg IVP Q6 PRN PRN Reason: Pain, moderate (4-7) Lorazepam (Ativan) 2 mg IVP Q2H PRN; Protocol PRN Reason: Symptoms of alcohol withdrawl Last Admin: 06/24/18 17:11 Dose: 2 mg Morphine Sulfate (Morphine) 1 mg IVP Q6H PRN PRN Reason: Pain, severe (8-10) Multivitamins (Thera Tab) 1 tab PO 0800 [facility] Thiamine HCl (Vitamin B1 Tab) 100 mg PO DAILY [facility] Physical Exam - Constitutional Appears: Non-toxic, No Acute Distress - Eye Exam Eye Exam: EOMI, PERRL - ENT Exam ENT Exam: Mucous Membranes Moist - Respiratory Exam Respiratory Exam: Clear to Auscultation Bilateral. absent: Rales, Rhonchi, Wheezes - Cardiovascular Exam Cardiovascular Exam: RRR, +S1, +S2 - GI/Abdominal Exam GI & Abdominal Exam: Guarding, Normal Bowel Sounds, Soft, Tenderness (diffuse ly). absent: Distended, Firm, Hernia, Rigid - Extremities Exam Extremities exam: Positive for: normal inspection. Negative for: pedal edema - Neurological Exam Neurological exam: Alert, Oriented x3 - Psychiatric Exam Psychiatric exam: Normal Affect, Normal Mood - Skin Skin Exam: Dry, Warm Results - Vital Signs Recent Vital Signs: Last Vital Signs Temp 98.6 F 06/24/18 13:15 Pulse 86 06/24/18 17:26 Resp 18 06/24/18 17:26 BP 141/97 H 06/24/18 13:15 Pulse Ox 100 06/24/18 13:15 - Labs Result Diagrams: 06/24/18 02:50 06/24/18 02:50 Labs: Laboratory Results - last 24 hr 06/24/18 06/24/18 06/24/18 02:50 02:50 02:50 WBC 5.2 RBC 3.97 Hgb 12.0 D Hct 36.6 MCV 92.2 MCH 30.2 MCHC 32.8 RDW 21.6 H Plt Count 426 MPV 8.8 Sodium 144 Potassium 4.1 Chloride 106 Carbon Dioxide 24 Anion Gap 18 BUN 8 Creatinine 0.6 L Est GFR ( Amer) > 60 Est GFR (Non-Af Amer) > 60 Random Glucose 121 H Calcium 8.9 Total Bilirubin 0.5 AST 141 H D ALT 78 H Alkaline Phosphatase 113 Lactate Dehydrogenase 929 H Total Creatine Kinase 118 Troponin I < 0.01 Total Protein 8.5 H Albumin 4.3 Globulin 4.2 Albumin/Globulin Ratio 1.0 L Lipase 104 Alcohol, Quantitative 239 H Assessment & Plan - Assessment and Plan (Free Text) Assessment: Patient is a 28yo female with PMHx significant for EtOH abuse, multiple episodes of alcoholic pancreatitis and hydradenitis suppurativa who presented to the hospital with abdominal pain -Abdominal pain, suspect EtOH induced pancreatitis, possibly acute colitis -Acute diarrheal illness, R/O infectious vs pancreatic insufficiency -EtOH abuse Plan: -CT reviewed - limited in absence of oral contrast - possible colitis and mild vs early pancreatitis -Clinical picture/CT seem to support diagnosis of pancreatitis -As such, would increase IVF to LR@200cc/hr -Liquid diet as tolerated -Check stool cultures and C diff given recent hospitalizations -Check fecal fat - previously with microscopic fat in stool - consider addition of pancreatic enzymes with meals -EtOH and tobacco cessation stressed -Patient exhibits drug seeking behavior - Date & Time Date: 06/24/18 Time: 06:45
--- NOTE | 2018-06-24 20:35 | CARD ---
APPROVED REPORT Date of service: 06/24/2018 EKG Measurement Heart [id number] <Conclusion> Normal sinus rhythm Juvinile T waves Prolonged QT Abnormal ECG
[2018-06-25] MEDS: Morphine 2 mg/ml ISec IVP PRN (03:36)
[2018-06-25 06:33] LABS: BASO # 0.03 K/mm3 (0.0-2.0); BASO % 0.6 % (0.0-3.0); EOS # 0.1 (0.0-0.7); EOS % 2.6 % (1.5-5.0); GRAN # 2.74 (1.4-6.5); GRAN % 50.6 % (50.0-68.0); LYMPH # 2.2 (1.2-3.4); LYMPH % 40.5 % (22.0-35.0); MEAN CORPUSCULAR HEMOGLOBIN 29.2 pg (25.0-35.0); MEAN CORPUSCULAR HGB CONC 31.7 g/dl (31.0-37.0); MEAN PLATELET VOLUME 8.9 fl (7.0-11.0); MONO # 0.3 (0.1-0.6); MONO % 5.7 % (1.0-6.0); RBC 3.39 10^6/uL (3.5-6.1); RED CELL DISTRIBUTION WIDTH 21.2 % (11.5-14.5); WHITE BLOOD COUNT 5.4 10^3/uL (4.5-11.0)
[2018-06-25 06:35] LABS: INR 1.13
[2018-06-25 06:37] LABS: HEMOGLOBIN 9.9 g/dL (12.0-16.0)
[2018-06-25 07:09] LABS: ALBUMIN 3.6 g/dL (3.0-4.8); ALT/SGPT 71 U/L (7-56); AST/SGOT 119 U/L (14-36); BLOOD UREA NITROGEN 2 mg/dL (7-21); CALCIUM 7.9 mg/dL (8.4-10.5); GFR NON-AFRICAN AMERICAN > 60
--- NOTE | 2018-06-25 08:02 | CP.PCM.CON ---
<Loki Pham - Last Filed: 06/25/18 12:28> History of Present Illness - History of Present Illness History of Present Illness: PGY6 GI Fellow Consult Note Patient is a 28yo female with PMHx significant for EtOH abuse, multiple episodes of alcoholic pancreatitis and hydradenitis suppurativa who presented to the hospital with abdominal pain. The patient has had numerous admissions for the s fabi, with 4 hospitalizations in the last two months following binge drinking episodes. She states that for the last two days she has had diffuse abdominal pain, worst in the epigastrium radiating to her chest. She became nauseated, vomiting multiple times and admits to worsening watery stool over the last 48 hours with ~10 episodes in the last day. Admits to binge drinking alcohol 2 days prior to admission. Denies any travel, sick contacts. No weight loss, hematochezia, melena, fever, chills. 12 system ROS performed and negative except where stated PMHx: See HPI PSHx: B/L axilla abscess I&D for hydradenitis FHx: Patient denies any significant family history Social: + Tobacco use, +heavy EtOH use, denies illicit drug use Endo: EGD - 01/2018 - Mild gastritis and hiatal hernia Past Patient History - Infectious Disease Hx of Infectious Diseases: None - Tetanus Immunizations Tetanus Immunization: Unknown - Past Medical History & Family History Past Medical History?: Yes - Past Social History Smoking Status: Current Some Days Smoker - CARDIAC Hx Cardiac Disorders: No - PULMONARY Hx Respiratory Disorders: No - NEUROLOGICAL Hx Neurological Disorder: No - HEENT Hx HEENT Problems: No - RENAL Hx Chronic Kidney Disease: No - ENDOCRINE/METABOLIC Hx Endocrine Disorders: No - HEMATOLOGICAL/ONCOLOGICAL Hx Blood Disorders: No - INTEGUMENTARY Hx Dermatological Problems: No - MUSCULOSKELETAL/RHEUMATOLOGICAL Hx Musculoskeletal Disorders: No Hx Falls: No - GASTROINTESTINAL Hx Gastrointestinal Disorders: Yes Hx Pancreatitis: Yes - GENITOURINARY/GYNECOLOGICAL Hx Genitourinary Disorders: No - PSYCHIATRIC Hx Psychophysiologic Disorder: Yes (ETOH ABUSE-DAILY VODKA) - SURGICAL HISTORY Hx Surgeries: Yes Other/Comment: Cyst removal / ABCESS bilat armpit - ANESTHESIA Hx Anesthesia: Yes Hx Anesthesia Reactions: No Hx Malignant Hyperthermia: No Meds Allergies/Adverse Reactions: Allergies Allergy/AdvReac Type Severity Reaction Status Date / Time No Known Allergies Allergy Verified 06/09/18 14:52 - Medications Medications: Current Medications Famotidine (Pepcid) 20 mg IVP DAILY [facility] Last Admin: 06/24/18 12:49 Dose: 20 mg Folic Acid (Folic Acid) 1 mg PO DAILY [facility] Ketorolac Tromethamine (Toradol) 15 mg IVP Q6 PRN PRN Reason: Pain, moderate (4-7) Last Admin: 06/25/18 03:35 Dose: 15 mg Lorazepam (Ativan) 2 mg IVP Q2H PRN; Protocol PRN Reason: Symptoms of alcohol withdrawl Last Admin: 06/25/18 04:04 Dose: 2 mg Multivitamins (Thera Tab) 1 tab PO 0800 [facility] Thiamine HCl (Vitamin B1 Tab) 100 mg PO DAILY [facility] Physical Exam - Constitutional Appears: Non-toxic, No Acute Distress - Eye Exam Eye Exam: EOMI, PERRL - ENT Exam ENT Exam: Mucous Membranes Moist - Respiratory Exam Respiratory Exam: Clear to Auscultation Bilateral. absent: Rales, Rhonchi, Wheezes - Cardiovascular Exam Cardiovascular Exam: RRR, +S1, +S2 - GI/Abdominal Exam GI & Abdominal Exam: Guarding, Normal Bowel Sounds, Soft, Tenderness (diffusely, worst in epigastric). absent: Distended, Firm, Hernia, Organomegaly, Rigid - Extremities Exam Extremities exam: Positive for: normal inspection. Negative for: pedal edema - Neurological Exam Neurological exam: Alert, Oriented x3 - Psychiatric Exam Psychiatric exam: Flat Affect, Normal Mood - Skin Skin Exam: Dry, Warm Results - Vital Signs Recent Vital Signs: Last Vital Signs Temp 98.7 F 06/25/18 06:00 Pulse 94 H 06/25/18 06:00 Resp 20 06/25/18 06:00 BP 134/96 H 06/25/18 06:00 Pulse Ox 97 06/25/18 06:00 - Labs Result Diagrams: 06/25/18 06:05 06/25/18 06:05 Labs: Laboratory Results - last 24 hr 06/25/18 06/25/18 06/25/18 06:05 06:05 06:05 WBC 5.4 RBC 3.39 L Hgb 9.9 L D Hct 31.2 L MCV 92.0 MCH 29.2 MCHC 31.7 RDW 21.2 H Plt Count 333 MPV 8.9 Gran % 50.6 Lymph % (Auto) 40.5 H [place] % (Auto) 5.7 Eos % (Auto) 2.6 Baso % (Auto) 0.6 Gran # 2.74 Lymph # (Auto) 2.2 [place] # (Auto) 0.3 Eos # (Auto) 0.1 Baso # (Auto) 0.03 PT 13.0 H INR 1.13 Sodium 137 Potassium 3.0 L Chloride 104 Carbon Dioxide 26 Anion Gap 10 BUN 2 L Creatinine 0.5 L Est GFR ( Amer) > 60 Est GFR (Non-Af Amer) > 60 Random Glucose 100 Calcium 7.9 L Phosphorus 4.1 Magnesium 1.2 L Total Bilirubin 1.1 AST 119 H ALT 71 H Alkaline Phosphatase 103 Total Protein 7.1 Albumin 3.6 Globulin 3.5 Albumin/Globulin Ratio 1.0 L Assessment & Plan - Assessment and Plan (Free Text) Assessment: Patient is a 28yo female with PMHx significant for EtOH abuse, multiple episodes of alcoholic pancreatitis and hydradenitis suppurativa who presented to the hospital with abdominal pain -Abdominal pain, suspect EtOH induced pancreatitis, possibly acute colitis -Acute diarrheal illness, R/O infectious colitis vs pancreatic insufficiency -EtOH abuse Plan: -CT reviewed - limited in absence of oral contrast - possible colitis and mild vs early pancreatitis -Clinical picture/CT seem to support diagnosis of pancreatitis -As such, would increase IVF to LR@200cc/hr -Liquid diet as tolerated -Check stool cultures and C diff given recent hospitalizations -Check fecal fat - previously with microscopic fat in stool - consider addition of pancreatic enzymes with meals -Consider addition of ceftriaxone/flagyl if clinically not improving given mild colitis noted by radiology -EtOH and tobacco cessation stressed -Patient exhibits drug seeking behavior - Date & Time Date: 06/25/18 Time: 08:02 <Harsha Magana V - Last Filed: 06/25/18 23:42> Meds - Medications Medications: Current Medications Famotidine (Pepcid) 20 mg IVP DAILY [facility] Last Admin: 06/25/18 09:49 Dose: 20 mg Folic Acid (Folic Acid) 1 mg PO DAILY [facility] Last Admin: 06/25/18 09:49 Dose: 1 mg Ketorolac Tromethamine (Toradol) 15 mg IVP Q6 PRN PRN Reason: Pain, moderate (4-7) Last Admin: 06/25/18 22:36 Dose: 15 mg Lorazepam (Ativan) 2 mg IVP Q2H PRN; Protocol PRN Reason: Symptoms of alcohol withdrawl Last Admin: 06/25/18 22:37 Dose: 2 mg Multivitamins (Thera Tab) 1 tab PO 0800 [facility] Last Admin: 06/25/18 09:49 Dose: 1 tab Ondansetron HCl (Zofran Inj) 4 mg IVP Q6H PRN PRN Reason: Nausea/Vomiting Thiamine HCl (Vitamin B1 Tab) 100 mg PO DAILY [facility] Last Admin: 06/25/18 09:49 Dose: 100 mg Results - Vital Signs Recent Vital Signs: Last Vital Signs Temp 98.7 F 06/25/18 18:00 Pulse 86 06/25/18 18:00 Resp 18 06/25/18 18:00 BP 119/76 06/25/18 18:00 Pulse Ox 97 06/25/18 06:00 - Labs Result Diagrams: 06/25/18 06:05 06/25/18 06:05 Labs: Laboratory Results - last 24 hr 06/25/18 06/25/18 06/25/18 06:05 06:05 06:05 WBC 5.4 RBC 3.39 L Hgb 9.9 L D Hct 31.2 L MCV 92.0 MCH 29.2 MCHC 31.7 RDW 21.2 H Plt Count 333 MPV 8.9 Gran % 50.6 Lymph % (Auto) 40.5 H [place] % (Auto) 5.7 Eos % (Auto) 2.6 Baso % (Auto) 0.6 Gran # 2.74 Lymph # (Auto) 2.2 [place] # (Auto) 0.3 Eos # (Auto) 0.1 Baso # (Auto) 0.03 PT 13.0 H INR 1.13 Sodium 137 Potassium 3.0 L Chloride 104 Carbon Dioxide 26 Anion Gap 10 BUN 2 L Creatinine 0.5 L Est GFR ( Amer) > 60 Est GFR (Non-Af Amer) > 60 Random Glucose 100 Calcium 7.9 L Phosphorus 4.1 Magnesium 1.2 L Total Bilirubin 1.1 AST 119 H ALT 71 H Alkaline Phosphatase 103 Total Protein 7.1 Albumin 3.6 Globulin 3.5 Albumin/Globulin Ratio 1.0 L Attending/Attestation - Attestation I have personally seen and examined this patient.: Yes I have fully participated in the care of the patient.: Yes I have reviewed all pertinent clinical information: Yes Notes (Text): This is an addendum to GI consult report dictated by the GI Fellow.The patient was seen and examined earlier. Medical records, lab studies, imagings were reviewed. Last 24 hours events reviewed. Agreed with the above treatment plan as outlined in GI Fellow 's notes with the addition of the following 06/25/18 23:42
[2018-06-25] MEDS ORDERED: Magnesium Sulfate 2 gm/50 ml 2 GM/50 ML BAG IVPB ONE (08:51)
[2018-06-25] MEDS ORDERED: Potassium Chloride 20 mEq ER Tab PO STA (08:51)
[2018-06-25] MEDS: Multivitamin Therapeutic Tab PO SCH (09:49)
--- NOTE | 2018-06-25 14:53 | CP.PCM.PN ---
<Olga Jaffe - Last Filed: 06/25/18 17:53> Subjective - Date & Time of Evaluation Date of Evaluation: 06/25/18 Time of Evaluation: 14:53 - Subjective Subjective: Olga Jaffe, PGY-1 Medicine Progress Note for Dr. Jauregui: Pt was seen and examined this AM at bedside. She states that she is having abd pain and some continued nausea. She states that she does not want to eat her food as she doesnt believe that she will tolerate it. She denies any fevers, chills, chest pain, sob, cough, admits to nausea, but denies vomiting, dysuria or hematuria. Objective - Vital Signs/Intake and Output Vital Signs (last 24 hours): Temp Pulse Resp BP Pulse Ox 98.2 F 73 21 132/79 97 06/25/18 12:00 06/25/18 12:00 06/25/18 12:00 06/25/18 12:00 06/25/18 06:00 Intake and Output: 06/25/18 06/25/18 06:59 18:59 Intake Total 1500 Output Total 0 Balance 1500 - Medications Medications: Current Medications Famotidine (Pepcid) 20 mg IVP DAILY [facility] Last Admin: 06/25/18 09:49 Dose: 20 mg Folic Acid (Folic Acid) 1 mg PO DAILY [facility] Last Admin: 06/25/18 09:49 Dose: 1 mg Ketorolac Tromethamine (Toradol) 15 mg IVP Q6 PRN PRN Reason: Pain, moderate (4-7) Last Admin: 06/25/18 10:06 Dose: 15 mg Lorazepam (Ativan) 2 mg IVP Q2H PRN; Protocol PRN Reason: Symptoms of alcohol withdrawl Last Admin: 06/25/18 11:11 Dose: 2 mg Multivitamins (Thera Tab) 1 tab PO 0800 [facility] Last Admin: 06/25/18 09:49 Dose: 1 tab Ondansetron HCl (Zofran Inj) 4 mg IVP Q6H PRN PRN Reason: Nausea/Vomiting Thiamine HCl (Vitamin B1 Tab) 100 mg PO DAILY [facility] Last Admin: 06/25/18 09:49 Dose: 100 mg - Labs Labs: 06/25/18 06:05 06/25/18 06:05 PT 13.0 SECONDS (9.4-12.5) H 06/25/18 06:05 INR 1.13 06/25/18 06:05 - Constitutional Appears: Non-toxic, No Acute Distress - Head Exam Head Exam: ATRAUMATIC, NORMAL INSPECTION, NORMOCEPHALIC - Eye Exam Eye Exam: EOMI, Normal appearance, PERRL - Respiratory Exam Respiratory Exam: Clear to Ausculation Bilateral, NORMAL BREATHING PATTERN. absent: Accessory Muscle Use, Decreased Breath Sounds, Rales, Rhonchi, Wheezes, Respiratory Distress, Stridor - GI/Abdominal Exam GI & Abdominal Exam: Soft, Tenderness (present in the epigastric region), Normal Bowel Sounds. absent: Distended, Firm, Guarding, Rigid - Extremities Exam Extremities Exam: Normal Inspection. absent: Pedal Edema, Tenderness - Back Exam Back Exam: NORMAL INSPECTION. absent: CVA tenderness (L), CVA tenderness (R) - Neurological Exam Neurological Exam: Alert, Awake, Oriented x3 - Psychiatric Exam Psychiatric exam: Normal Affect, Normal Mood - Skin Skin Exam: Dry, Normal Color, Warm Assessment and Plan - Assessment and Plan (Free Text) Assessment: Pt is a 28 year old female with PMH of alcohol abuse, pancreatitis and hydradenitis suppurativa presenting to the ED for one day history of abdominal pain. Plan: Intractable abdominal pain complicated by hx of pancreatitis 2/2 etoh abuse - lipase WNL with LFT's consistent with alcohol abuse - morphine 2mg q6 prn - pepcid - Zofran - CLD, will advance if tolerated in AM - GI on consult, Dr. Magana - CTAP on 05/28/18 showed haziness around pancreas, possible pancreatitis Hx of alcohol abuse - CIWA protocol - ativan prn - Thiamine, folate, multivitamins PPX with SCD and pepcid Patient seen and case discussed with attending, Dr. Juventino Jaffe PGY-1 <Marion Jauregui - Last Filed: 06/28/18 12:51> Objective - Vital Signs/Intake and Output Vital Signs (last 24 hours): Temp Pulse Resp BP Pulse Ox 99.0 F 84 18 135/92 H 100 06/26/18 06:00 06/26/18 10:00 06/26/18 06:00 06/26/18 06:00 06/26/18 06:00 - Labs Labs: 06/26/18 06:00 06/26/18 06:00 PT 13.0 SECONDS (9.4-12.5) H 06/25/18 06:05 INR 1.13 06/25/18 06:05 Attending/Attestation - Attestation I have personally seen and examined this patient.: Yes I have fully participated in the care of the patient.: Yes I have reviewed all pertinent clinical information, including history, physical exam and plan: Yes Notes (Text): 06/28/18 12:49 attending note; Patient seen and examined with resident. Patient is alert and awake. Complaining of abdominal pain. Denies any nausea, vomiting. Not tolerating diet well. On clear liquid diet. Patient is a 28 year old female with PMH of alcohol abuse, pancreatitis and hydradenitis suppurativa presenting to the ED for one day history of abdominal pain. recurrent alcohol abuse and alcoholic gastritis. Started on clear liquid diet. Complaining of nausea and vomiting. Complaining of abdominal pain; taper IV morphine. CT abdomen pelvis shows mild colonic inflammation. Started on IV Rocephin and Flagyl. Monitor closely. Complete alcohol cessation is strongly advised. Patient refused psychiatric evaluation. Patient already have information about AA meetings and AA rehabilitation. Upon discharge patient will follow-up with [facility] clinic. Patient is noncompliance with follow-up. Prognosis is poor secondary to continuous alcohol abuse and noncompliance with follow-up. 06/28/18 12:51
[2018-06-26 02:12] VITALS: O2SAT 100
[2018-06-26 06:19] VITALS: BP 135/92; RESP 18; TEMP 99
[2018-06-26 07:01] LABS: HEMOGLOBIN 10.4 g/dL (12.0-16.0); MEAN CELL VOLUME 92.9 fl (80.0-105.0); MEAN CORPUSCULAR HEMOGLOBIN 29.5 pg (25.0-35.0); MEAN CORPUSCULAR HGB CONC 31.7 g/dl (31.0-37.0); MEAN PLATELET VOLUME 9.4 fl (7.0-11.0); RBC 3.53 10^6/uL (3.5-6.1); WHITE BLOOD COUNT 6.9 10^3/uL (4.5-11.0)
[2018-06-26 07:23] LABS: ALBUMIN 3.9 g/dL (3.0-4.8); ALT/SGPT 51 U/L (7-56); AST/SGOT 68 U/L (14-36); BLOOD UREA NITROGEN 5 mg/dL (7-21); CALCIUM 9.1 mg/dL (8.4-10.5); GFR NON-AFRICAN AMERICAN > 60
[2018-06-26] MEDS ORDERED: Potassium Chloride 20 mEq ER Tab PO ONE (08:00)
--- NOTE | 2018-06-26 09:18 | CP.PCM.PN ---
<VeroLoki - Last Filed: 06/26/18 11:59> Subjective - Date & Time of Evaluation Date of Evaluation: 06/26/18 Time of Evaluation: 07:10 - Subjective Subjective: PGY6 GI Fellow Progress Note Patient seen and examined bedside this morning. The patient continues to complain of diffuse abdominal pain, worst in the epigastric area. No nausea, vomiting. Limited responses to all questions. Admits to ongoing diarrhea, 4 episodes documented by nursing staff. Requesting more pain medications. 12 system ROS performed and negative except where stated Objective - Vital Signs/Intake and Output Vital Signs (last 24 hours): Temp Pulse Resp BP Pulse Ox 99.0 F 89 18 135/92 H 100 06/26/18 06:00 06/26/18 06:00 06/26/18 06:00 06/26/18 06:00 06/26/18 06:00 Intake and Output: 06/26/18 06/26/18 06:59 18:59 Intake Total 640 Balance 640 - Medications Medications: Current Medications Famotidine (Pepcid) 20 mg IVP DAILY [facility] Last Admin: 06/25/18 09:49 Dose: 20 mg Folic Acid (Folic Acid) 1 mg PO DAILY [facility] Last Admin: 06/25/18 09:49 Dose: 1 mg Ketorolac Tromethamine (Toradol) 15 mg IVP Q6 PRN PRN Reason: Pain, moderate (4-7) Last Admin: 06/26/18 03:40 Dose: 15 mg Lorazepam (Ativan) 2 mg IVP Q2H PRN; Protocol PRN Reason: Symptoms of alcohol withdrawl Last Admin: 06/26/18 03:41 Dose: 2 mg Multivitamins (Thera Tab) 1 tab PO 0800 [facility] Last Admin: 06/25/18 09:49 Dose: 1 tab Ondansetron HCl (Zofran Inj) 4 mg IVP Q6H PRN PRN Reason: Nausea/Vomiting Thiamine HCl (Vitamin B1 Tab) 100 mg PO DAILY [facility] Last Admin: 06/25/18 09:49 Dose: 100 mg - Labs Labs: 06/26/18 06:00 06/26/18 06:00 PT 13.0 SECONDS (9.4-12.5) H 06/25/18 06:05 INR 1.13 06/25/18 06:05 - Constitutional Appears: Non-toxic, No Acute Distress - Eye Exam Eye Exam: EOMI, PERRL - ENT Exam ENT Exam: Mucous Membranes Moist - Respiratory Exam Respiratory Exam: Clear to Ausculation Bilateral. absent: Rales, Rhonchi, Wheezes - Cardiovascular Exam Cardiovascular Exam: RRR, +S1, +S2 - GI/Abdominal Exam GI & Abdominal Exam: Soft, Tenderness (epigastric), Normal Bowel Sounds. absent: Distended, Firm, Guarding, Rigid, Organomegaly - Extremities Exam Extremities Exam: Normal Inspection. absent: Pedal Edema - Neurological Exam Neurological Exam: Alert, Awake, Oriented x3 - Psychiatric Exam Psychiatric exam: Flat Affect, Normal Mood - Skin Skin Exam: Dry, Warm Assessment and Plan - Assessment and Plan (Free Text) Assessment: Patient is a 28yo female with PMHx significant for EtOH abuse, multiple episodes of alcoholic pancreatitis and hydradenitis suppurativa who presented to the hospital with abdominal pain -Abdominal pain, suspect EtOH induced pancreatitis, possibly acute colitis -Acute diarrheal illness, R/O infectious colitis vs pancreatic insufficiency -Abnormal LFTs 2/2 EtOH use, improved -EtOH abuse Plan: -Patient has not collected stool samples despite reinforcement to do so - would like fecal fat, C diff (given multiple hospitalizations) and culture -Staff cannot confirm if patient having diarrhea, verbal history from patient -Overnight, requested switch of diet from liquid to regular - tolerated without issue -Clinically, patient appears improved from prior -Will add pancreatic enzymes with meals -Consider addition of ceftriaxone/flagyl if clinically not improving given mild colitis noted by radiology -EtOH and tobacco cessation stressed -Patient exhibits drug seeking behavior <Harsha Magana V - Last Filed: 06/26/18 23:27> Objective - Vital Signs/Intake and Output Vital Signs (last 24 hours): Temp Pulse Resp BP Pulse Ox 99.0 F 84 18 135/92 H 100 06/26/18 06:00 06/26/18 10:00 06/26/18 06:00 06/26/18 06:00 06/26/18 06:00 - Labs Labs: 06/26/18 06:00 06/26/18 06:00 PT 13.0 SECONDS (9.4-12.5) H 06/25/18 06:05 INR 1.13 06/25/18 06:05 Attending/Attestation - Attestation I have personally seen and examined this patient.: Yes I have fully participated in the care of the patient.: Yes I have reviewed all pertinent clinical information, including history, physical exam and plan: Yes Notes (Text): This is an addendum to GI progress report dictated by the GI Fellow.The patient was seen and examined earlier. Medical records, lab studies, imagings were reviewed. Last 24 hours events reviewed. Agreed with the above treatment plan as outlined in GI Fellow 's notes with the addition of the following 06/26/18 23:27
[2018-06-26] MEDS: Multivitamin Therapeutic Tab PO SCH (09:55)
[2018-06-26 11:28] VITALS: PULSE 84
[2018-06-26] MEDS ORDERED: Amylase/Lipase/Protease 5,000 Units ECC PO SCH ×2 (11:30)
--- NOTE | 2018-06-26 16:46 | CP.PCM.DIS ---
<Olga Jaffe - Last Filed: 06/26/18 19:36> Provider - Provider Date of Admission: 06/24/18 07:30 Attending physician: Marion Jauregui MD Primary care physician: NO PRIMARY CARE PROVIDER Consults: 06/24/18 06:23 Gastroenterology Consult Routine Comment: Consulting Provider: Harsha Magana V Consulting Physician: Harsha Magana V Reason for Consult: intractable abdominal pain 06/25/18 07:15 Marketing Program Coordinator [Case Management Referral] Routine Comment: Physician Instructions: Reason For Exam: AA rehab and meeting Reason for Referral: Discharge Planning Time Spent in preparation of Discharge (in minutes): 45 Diagnosis - Discharge Diagnosis (1) Abdominal pain Status: Acute (2) Nausea & vomiting Status: Acute Hospital Course - Lab Results Lab Results: Most Recent Lab Values WBC 6.9 10^3/uL (4.5-11.0) D 06/26/18 06:00 RBC 3.53 10^6/uL (3.5-6.1) 06/26/18 06:00 Hgb 10.4 g/dL (12.0-16.0) L 06/26/18 06:00 Hct 32.8 % (36.0-48.0) L 06/26/18 06:00 MCV 92.9 fl (80.0-105.0) 06/26/18 06:00 MCH 29.5 pg (25.0-35.0) 06/26/18 06:00 MCHC 31.7 g/dl (31.0-37.0) 06/26/18 06:00 RDW 21.0 % (11.5-14.5) H 06/26/18 06:00 Plt Count 345 10^3/uL (120.0-450.0) 06/26/18 06:00 MPV 9.4 fl (7.0-11.0) 06/26/18 06:00 Gran % 50.6 % (50.0-68.0) 06/25/18 06:05 Lymph % (Auto) 40.5 % (22.0-35.0) H 06/25/18 06:05 [place] % (Auto) 5.7 % (1.0-6.0) 06/25/18 06:05 Eos % (Auto) 2.6 % (1.5-5.0) 06/25/18 06:05 Baso % (Auto) 0.6 % (0.0-3.0) 06/25/18 06:05 Gran # 2.74 (1.4-6.5) 06/25/18 06:05 Lymph # (Auto) 2.2 (1.2-3.4) 06/25/18 06:05 [place] # (Auto) 0.3 (0.1-0.6) 06/25/18 06:05 Eos # (Auto) 0.1 (0.0-0.7) 06/25/18 06:05 Baso # (Auto) 0.03 K/mm3 (0.0-2.0) 06/25/18 06:05 PT 13.0 SECONDS (9.4-12.5) H 06/25/18 06:05 INR 1.13 06/25/18 06:05 Sodium 138 mmol/L (132-148) 06/26/18 06:00 Potassium 3.5 mmol/L (3.6-5.0) L 06/26/18 06:00 Chloride 104 mmol/L (98-107) 06/26/18 06:00 Carbon Dioxide 26 mmol/L (21-33) 06/26/18 06:00 Anion Gap 11 (10-20) 06/26/18 06:00 BUN 5 mg/dL (7-21) L 06/26/18 06:00 Creatinine 0.5 mg/dl (0.7-1.2) L 06/26/18 06:00 Est GFR ( Amer) > 60 06/26/18 06:00 Est GFR (Non-Af Amer) > 60 06/26/18 06:00 POC Glucose (mg/dL) 85 mg/dL (65-110) 06/26/18 11:56 Random Glucose 118 mg/dL (70-110) H 06/26/18 06:00 Calcium 9.1 mg/dL (8.4-10.5) 06/26/18 06:00 Phosphorus 4.3 mg/dL (2.5-4.5) 06/26/18 06:00 Magnesium 2.0 mg/dL (1.7-2.2) 06/26/18 06:00 Total Bilirubin 0.6 mg/dL (0.2-1.3) 06/26/18 06:00 AST 68 U/L (14-36) H D 06/26/18 06:00 ALT 51 U/L (7-56) 06/26/18 06:00 Alkaline Phosphatase 111 U/L (38-126) 06/26/18 06:00 Lactate Dehydrogenase 929 U/L (333-699) H 06/24/18 02:50 Total Creatine Kinase 118 U/L (35-230) 06/24/18 02:50 Troponin I < 0.01 ng/mL 06/24/18 02:50 Total Protein 7.6 g/dL (5.8-8.3) 06/26/18 06:00 Albumin 3.9 g/dL (3.0-4.8) 06/26/18 06:00 Globulin 3.7 gm/dL 06/26/18 06:00 Albumin/Globulin Ratio 1.0 (1.1-1.8) L 06/26/18 06:00 Lipase 104 U/L (23-300) 06/24/18 02:50 Alcohol, Quantitative 239 mg/dL (0-10) H 06/24/18 02:50 - Hospital Course Hospital Course: Upon Admission: Pt is a 28 year old female with PMH of alcohol abuse, pancreatitis and hydradenitis suppurativa presenting to the ED for one day history of abdominal pain. Pain is located in the epigastric area, radiates to the right side of the back, sharp, rated 10/10 at worst, constant, associated with nausea and several episodes of nonbloody vomiting and diarrhea and says eating exacerbates symptoms and denies any alleviating symptoms. She says symptoms are similar to previous episodes of pancreatitis for which she was admitted twice in the last month. Her last meal was a turkey sandwhich on previous night and last BM was this evening. Her last drink was a few days ago. She denies CP, SOB, fevers, headaches, constipation, urinary complaints, numbness, tingling, swelling, recent travel, sickness, trauma, lifestyle changes including diet and weight loss/gain. 12 point ROS noted here, otherwise unremarkable. Hospital Course: Pt was not noted to have an increased lipase on lab work done in ED. However the pt was still complaining about intractable abdominal pain which is complicated by a hx of pancreatitis 2/2 etoh abuse. The pts LFTs were consistent with etoh absue. Pt was given morphine 2mg q6 prn for management of her intractable abd pain. She was given zofran since she was still having nausea. She was originally placed NPO, but then advanced to a CLD, and then a regular diet. GI on consult, Dr. Magana - who cleared the pt for discharge after she was tolerating her diet. CTAP on 05/28/18 showed haziness around pancreas, possible pancreatitis, which had since resolved clinically as the pt is no longer nauseous and is tolerating her diet. The pt was also placed on CIWA protocol due to her hx of etoh abuse and elevated alcohol levels noted in labs. Ativan was ordered prn, as was thiamine, folate, and multivitamins. Medical plan for d/c was explained to the pt and the pt expressed understanding and agreement with the medical plan. All of the pts questions and concerns were answered prior to d/c. All of the pts meds were brought to the pts bedside by pharm. Discharge Exam - Head Exam Head Exam: ATRAUMATIC, NORMAL INSPECTION, NORMOCEPHALIC - Eye Exam Eye Exam: EOMI, Normal appearance, PERRL - Respiratory Exam Respiratory Exam: Clear to PA & Lateral, NORMAL BREATHING PATTERN, UNREMARKABLE. absent: Accessory Muscle Use, Decreased Breath Sounds, Rales, Rhonchi, Wheezes, Respiratory Distress, Stridor - Cardiovascular Exam Cardiovascular Exam: RRR, +S1, +S2. absent: Gallop, Rubs - GI/Abdominal Exam GI & Abdominal Exam: Normal Bowel Sounds, Soft, Unremarkable. absent: Tenderness - Extremities Exam Extremities exam: normal capillary refill, pedal pulses present - Back Exam Back exam: NORMAL INSPECTION. absent: CVA tenderness (L), CVA tenderness (R) - Neurological Exam Neurological exam: Alert, Oriented x3 - Psychiatric Exam Psychiatric exam: Normal Affect, Normal Mood - Skin Skin Exam: Dry, Normal Color, Warm Discharge Plan - Discharge Medications Prescriptions: Amylase/Lipase/Protease [Pancrease 84077 [id number] [id number] U] 35,000 unit PO AC #30 ecc chlordiazePOXIDE [Chlordiazepoxide HCl] 5 mg PO TID #15 cap Famotidine [Pepcid] 20 mg PO DAILY #30 tab Folic Acid 1 mg PO DAILY #30 tab Multivitamin Therapeutic Tab [Thera Tab] 1 tab PO 0800 #30 tab Thiamine [Vitamin B1 Tab] 100 mg PO DAILY #30 tab - Follow Up Plan Condition: STABLE Disposition: HOME/ ROUTINE Instructions: Nausea and Vomiting, Adult (DC), Pancreatitis (DC), Acute Abdominal Pain (DC) Additional Instructions: Please follow up with the [facility] for follow up in 1-2 weeks. Please refrain from drinking alcohol which is the cause of your abdominal pain. You have been given a prescription for: - Multivitamin 1 tab DAILY - Folic acid 1mg DAILY - Thiamine 100mg DAILY - Librium 5 mg THREE TIMES PER DAY for 5 days for alcohol withdrawal If your symptoms worsen, please go to the nearest emergency department. Referrals: [facility] at [facility] [Outside] Harsha Magana MD [Medical Doctor] - <Marion Jauregui - Last Filed: 06/28/18 12:56> Provider - Provider Date of Admission: 06/24/18 07:30 Attending physician: Marion Jauregui MD Primary care physician: NO PRIMARY CARE PROVIDER Consults: 06/24/18 06:23 Gastroenterology Consult Routine Comment: Consulting Provider: Harsha Magana V Consulting Physician: Harsha Magana V Reason for Consult: intractable abdominal pain 06/25/18 07:15 Marketing Program Coordinator [Case Management Referral] Routine Comment: Physician Instructions: Reason For Exam: AA rehab and meeting Reason for Referral: Discharge Planning Hospital Course - Lab Results Lab Results: Most Recent Lab Values WBC 6.9 10^3/uL (4.5-11.0) D 06/26/18 06:00 RBC 3.53 10^6/uL (3.5-6.1) 06/26/18 06:00 Hgb 10.4 g/dL (12.0-16.0) L 06/26/18 06:00 Hct 32.8 % (36.0-48.0) L 06/26/18 06:00 MCV 92.9 fl (80.0-105.0) 06/26/18 06:00 MCH 29.5 pg (25.0-35.0) 06/26/18 06:00 MCHC 31.7 g/dl (31.0-37.0) 06/26/18 06:00 RDW 21.0 % (11.5-14.5) H 06/26/18 06:00 Plt Count 345 10^3/uL (120.0-450.0) 06/26/18 06:00 MPV 9.4 fl (7.0-11.0) 06/26/18 06:00 Gran % 50.6 % (50.0-68.0) 06/25/18 06:05 Lymph % (Auto) 40.5 % (22.0-35.0) H 06/25/18 06:05 [place] % (Auto) 5.7 % (1.0-6.0) 06/25/18 06:05 Eos % (Auto) 2.6 % (1.5-5.0) 06/25/18 06:05 Baso % (Auto) 0.6 % (0.0-3.0) 06/25/18 06:05 Gran # 2.74 (1.4-6.5) 06/25/18 06:05 Lymph # (Auto) 2.2 (1.2-3.4) 06/25/18 06:05 [place] # (Auto) 0.3 (0.1-0.6) 06/25/18 06:05 Eos # (Auto) 0.1 (0.0-0.7) 06/25/18 06:05 Baso # (Auto) 0.03 K/mm3 (0.0-2.0) 06/25/18 06:05 PT 13.0 SECONDS (9.4-12.5) H 06/25/18 06:05 INR 1.13 06/25/18 06:05 Sodium 138 mmol/L (132-148) 06/26/18 06:00 Potassium 3.5 mmol/L (3.6-5.0) L 06/26/18 06:00 Chloride 104 mmol/L (98-107) 06/26/18 06:00 Carbon Dioxide 26 mmol/L (21-33) 06/26/18 06:00 Anion Gap 11 (10-20) 06/26/18 06:00 BUN 5 mg/dL (7-21) L 06/26/18 06:00 Creatinine 0.5 mg/dl (0.7-1.2) L 06/26/18 06:00 Est GFR ( Amer) > 60 06/26/18 06:00 Est GFR (Non-Af Amer) > 60 06/26/18 06:00 POC Glucose (mg/dL) 85 mg/dL (65-110) 06/26/18 11:56 Random Glucose 118 mg/dL (70-110) H 06/26/18 06:00 Calcium 9.1 mg/dL (8.4-10.5) 06/26/18 06:00 Phosphorus 4.3 mg/dL (2.5-4.5) 06/26/18 06:00 Magnesium 2.0 mg/dL (1.7-2.2) 06/26/18 06:00 Total Bilirubin 0.6 mg/dL (0.2-1.3) 06/26/18 06:00 AST 68 U/L (14-36) H D 06/26/18 06:00 ALT 51 U/L (7-56) 06/26/18 06:00 Alkaline Phosphatase 111 U/L (38-126) 06/26/18 06:00 Lactate Dehydrogenase 929 U/L (333-699) H 06/24/18 02:50 Total Creatine Kinase 118 U/L (35-230) 06/24/18 02:50 Troponin I < 0.01 ng/mL 06/24/18 02:50 Total Protein 7.6 g/dL (5.8-8.3) 06/26/18 06:00 Albumin 3.9 g/dL (3.0-4.8) 06/26/18 06:00 Globulin 3.7 gm/dL 06/26/18 06:00 Albumin/Globulin Ratio 1.0 (1.1-1.8) L 06/26/18 06:00 Lipase 104 U/L (23-300) 06/24/18 02:50 Alcohol, Quantitative 239 mg/dL (0-10) H 06/24/18 02:50 Attending/Attestation - Attestation I have personally seen and examined this patient.: Yes I have fully participated in the care of the patient.: Yes I have reviewed all pertinent clinical information, including history, physical exam and plan: Yes Notes (Text): 06/28/18 12:52 attending note; Patient seen and examined with resident. Patient is alert and awake. abdominal pain is resolving. Denies any nausea, vomiting. Not tolerating diet well. On clear liquid diet. Patient is a 28 year old female with PMH of alcohol abuse, pancreatitis and hydradenitis suppurativa presenting to the ED for one day history of abdominal pain. recurrent alcohol abuse and alcoholic gastritis. Started on clear liquid diet. advanced to soft diet. nausea and vomiting resolved. CT abdomen pelvis shows mild colonic inflammation. Started on IV Rocephin and Flagyl. GI evaluation appreciated. Complete alcohol cessation is strongly advised. Patient refused psychiatric evaluation. Patient already have information about AA meetings and AA rehabilitation. Upon discharge patient will follow-up with [facility] clinic. Patient is noncompliance with follow-up. Prognosis is poor secondary to continuous alcohol abuse and noncompliance with follow-up.
== END 2018-06-26 16:56 | disposition home or self-care (01) | DRG 241 ==
LOC: ED 00:46 → ERH 05:24 → OBSVTOIN 07:30 → ERH 12:52 → 2RNO 13:07
PROVIDERS: ADMIT Internal Medicine; ATTEND Internal Medicine
DX: K29.20 Alcoholic gastritis without bleeding (principal); K86.0 Alcohol-induced chronic pancreatitis; F10.10 Alcohol abuse, uncomplicated; K44.9 Diaphragmatic hernia without obstruction or gangrene; F17.210 Nicotine dependence, cigarettes, uncomplicated; Z91.19 Patient's noncompliance with other medical treatment and regimen

== ENCOUNTER 2018-07-07 02:48 | Inpatient (IN) | payer BC, MEDICAID, OTHER ==
[2018-07-07] MEDS ORDERED: Multivitamin (MVI) 10 ML, Thiamine 100 MG, Folic Acid 1 MG in Sodium Chloride 0.9% 1,00... IV ONE (03:34)
--- NOTE | 2018-07-07 03:38 | ED PDOC ---
Arrival/HPI - General Chief Complaint: Abdominal Pain Time Seen by Provider: 07/07/18 03:10 Historian: Patient - History of Present Illness Narrative History of Present Illness (Text): 07/07/18 03:35 28 year old female with pmhx of alcohol abuse, pancreatitis and hydradenitis suppurativa presents to the ED with abdominal pain since yesterday. Patient states she has been experiencing abdominal pain that radiates to her chest, and back. Patient reports she was recently discharge from [facility] yesterday morning. Patient admits her last drink was last night. Patient denies any fever, chills, shortness of breath, nausea, vomiting, diarrhea, urinary symptoms, neck pain, headache, dizziness, or any other complaints. PMD: None Symptom Onset: Gradual Symptom Course: Unchanged Activities at Onset: Light Past Medical History - Provider Review Nursing Documentation Reviewed: Yes - Infectious Disease Hx of Infectious Diseases: None - Tetanus Immunization Tetanus Immunization: Unknown - Cardiac Hx Cardiac Disorders: No - Pulmonary Hx Respiratory Disorders: No - Neurological Hx Neurological Disorder: No - HEENT Hx HEENT Disorder: No - Renal Hx Renal Disorder: No - Endocrine/Metabolic Hx Endocrine Disorders: No - Hematological/Oncological Hx Blood Disorders: No - Integumentary Hx Dermatological Disorder: No - Musculoskeletal/Rheumatological Hx Musculoskeletal Disorders: No Hx Falls: No - Gastrointestinal Hx Pancreatitis: Yes - Genitourinary/Gynecological Hx Genitourinary Disorders: No - Psychiatric Hx Psychophysiologic Disorder: Yes (ETOH ABUSE-DAILY VODKA) Hx Substance Use: No (DENIES) - Surgical History Other/Comment: Cyst removal / ABCESS bilat armpit - Anesthesia Hx Anesthesia: Yes Hx Anesthesia Reactions: No Hx Malignant Hyperthermia: No Family/Social History - Physician Review Nursing Documentation Reviewed: Yes Family/Social History: No Known Family HX Smoking Status: Heavy Smoker > 10 Cigarettes Daily Hx Alcohol Use: Yes (DAILY VODKA) Hx Substance Use: No (DENIES) Allergies/Home Meds Allergies/Adverse Reactions: Allergies No Known Allergies Allergy (Verified 07/07/18 02:55) Review of Systems - Physician Review All systems were reviewed & negative as marked: Yes - Review of Systems Constitutional: absent: Fevers, Other (Chills) Respiratory: absent: SOB Cardiovascular: absent: Chest Pain Gastrointestinal: Abdominal Pain (radiates to chest and back). absent: Diarrhea, Nausea, Vomiting Genitourinary Female: absent: Dysuria, Frequency, Hematuria Musculoskeletal: absent: Neck Pain Neurological: absent: Headache, Dizziness Physical Exam - Physical Exam Narrative Physical Exam (Text): Gen: VS reviewed, alert, well developed, well nourished, nontoxic, mild distress. ENT: normal pharynx. Eye: EOMI, PERRL. Neck: no JVD, supple, no adenopathy. CV: tachycardic, no rubs, no murmur, no gallops, S1, S2, pulses equal and strong. Pulm: no distress, clear to auscultation, no wheeze, no rhonchi, breath sounds equal, no rales. Abd: mild to mod epigastric tenderness, no guarding, no rebound, no rigidity, normal bowel sounds. Ext: no edema. Skin: good color, no rash, no cyanosis. Psych: responds appropriately to questions, normal affect. Neuro: oriented x 3, CN2-12 intact grossly, motor intact, sensation intact. Vital Signs Reviewed: Yes Vital Signs Temp Pulse Resp BP Pulse Ox 07/07/18 02:57 98.6 F 125 H 18 132/80 98 Temperature: Afebrile Blood Pressure: Normal Pulse: Tachycardic Respiratory Rate: Normal Medical Decision Making ED Course and Treatment: 07/07/18 03:35 Impression: 28 year old female presents complaining of abdominal discomfort that radiates to the chest and back. Plan: -- EKG -- Labs -- IV Fluids -- POC Urine -- Reassess and disposition Prior Visits: Notes and results from previous visits were reviewed. Progress Notes: 07/07/18 06:[address] del toro to the hospitalist service who will give report to incoming team. admit resident aware of admission. patient to be admitted for intractable pain, alcoholic gastritis. patient does not exhibit acute s/s of withdrawal, CIWA score = 2. - Lab Interpretations I have reviewed the lab results: Yes - EKG Interpretation Interpreted by ED Physician: Yes Type: 12 lead EKG - Medication Orders Current Medication Orders: Multivitamins/Vitamin C 10 ml/Thiamine HCl 100 mg/ Folic Acid 1 mg/ Sodium Chloride 1,011.2 mls @ 150 mls/hr IV .[id number] ONE Stop: 07/07/18 10:18 - Scribe Statement The provider has reviewed the documentation as recorded by the Scribe Provider Attestation: Carmina Gonzalez Provider Scribe Attestation: All medical record entries made by the Scribe were at my direction and personally dictated by me. I have reviewed the chart and agree that the record accurately reflects my personal performance of the history, physical exam, medical decision making, and the department course for this patient. I have also personally directed, reviewed, and agree with the discharge instructions and disposition. Disposition/Present on Arrival - Present on Arrival Any Indicators Present on Arrival: No History of DVT/PE: No History of Uncontrolled Diabetes: No Urinary Catheter: No History of Decub. Ulcer: No History Surgical Site Infection Following: None - Disposition Have Diagnosis and Disposition been Completed?: Yes Diagnosis: Alcoholic gastritis Disposition: HOSPITALIZED Disposition Time: 06:21 Patient Plan: Admission Patient Problems: Current Active Problems Problem Status Onset Alcoholic gastritis Acute Condition: STABLE Forms: [employer] ([place])
[2018-07-07 04:17] LABS: BASO # 0.01 K/mm3 (0.0-2.0); BASO % 0.1 % (0.0-3.0); EOS # 0.1 (0.0-0.7); EOS % 1.3 % (1.5-5.0); GRAN # 5.1 (1.4-6.5); HEMOGLOBIN 10.9 g/dL (12.0-16.0); LYMPH # 1.7 (1.2-3.4); LYMPH % 24.1 % (22.0-35.0); MEAN CELL VOLUME 93.9 fl (80.0-105.0); MEAN CORPUSCULAR HEMOGLOBIN 30.2 pg (25.0-35.0); MEAN CORPUSCULAR HGB CONC 32.2 g/dl (31.0-37.0); MEAN PLATELET VOLUME 9.1 fl (7.0-11.0); MONO # 0.3 (0.1-0.6); MONO % 3.5 % (1.0-6.0); RBC 3.61 10^6/uL (3.5-6.1); RED CELL DISTRIBUTION WIDTH 20.9 % (11.5-14.5); WHITE BLOOD COUNT 7.2 10^3/uL (4.5-11.0)
[2018-07-07 04:22] LABS: INR 0.88
[2018-07-07 04:40] LABS: TROPONIN I < 0.01 ng/mL
[2018-07-07 04:59] LABS: ALB/GLOB RATIO 1.1 (1.1-1.8); ALBUMIN 4.4 g/dL (3.0-4.8); ALT/SGPT 74 U/L (7-56); AST/SGOT 57 U/L (14-36); BLOOD UREA NITROGEN < 2 mg/dL (7-21); CALCIUM 9.2 mg/dL (8.4-10.5); GFR NON-AFRICAN AMERICAN > 60; LIPASE 332 U/L (23-300)
[2018-07-07] MEDS ORDERED: Famotidine 20mg/50ml 20 MG/50 ML BAG IVPB STA (05:11)
[2018-07-07 06:41] LABS: OPIATES, UR NEGATIVE (NEGATIVE)
[2018-07-07 06:48] LABS: BARBITURATES, UR NEGATIVE (NEGATIVE); BENZODIAZEPINES, UR NEGATIVE (NEGATIVE); PHENCYCLIDINE, UR NEGATIVE (NEGATIVE)
[2018-07-07] MEDS ORDERED: Multivitamin (MVI) 10 ML, Thiamine 100 MG, Folic Acid 1 MG, Potassium Chloride 40 MEQ i... IV ONE (06:55)
--- NOTE | 2018-07-07 07:47 | CP.PCM.HP ---
<Alfreda Cedeno - Last Filed: 07/07/18 10:25> History of Present Illness - History of Present Illness History of Present Illness: IM H&P for Dr. Jauregui CC: Abdominal Pain and Nausea and Vomiting HPI: 28 F with a PMHx of Etoh abuse x 2 years - daily pint of vodka, pancreatitis and hydradenitis suppurativa s/p I&D [place] [facility] [place] with complaints of epigastric abdominal pain that radiates to her chest 8/10 in intensity at its worst and the pain fluctuates but remains constant. No all eviating or exacerbating factors. Patient lat ate yesterday afternoon, finished drinking her vodka at around 9pm, found herself nauseous this morning and after vomiting, her abdominal pain began. Patient has had a total of 3-4 episodes of NBNB emesis. Patient was previously admitted for similar symptoms previously. Patient also was recently [place] [facility] [place] with same complaints. Patient denied any fever, chills, headaches, shortness of breath, diarrhea, dysuria, neck pain, headache, dizziness, or any other complaints. PMHx: Etoh abuse x 2 years - daily pint of vodka, pancreatitis and hydradenitis suppurativa s/p I&D PSHx: hydradenitis suppurativa s/p I&D FamHx: Denied SHx: +tobacco (1/2PPD), +Etoh - daily pint of vodka, denied illicit drug abuse Meds: MAR reviewed Allergies: NKDA PMD: None Present on Admission - Present on Admission Any Indicators Present on Admission: No Review of Systems - Review of Systems Review of Systems: as per HPI otherwise negative Past Patient History - Infectious Disease Hx of Infectious Diseases: None - Tetanus Immunizations Tetanus Immunization: Unknown - Past Medical History & Family History Past Medical History?: Yes - Past Social History Smoking Status: Heavy Smoker > 10 Cigarettes Daily - CARDIAC Hx Cardiac Disorders: No - PULMONARY Hx Respiratory Disorders: No - NEUROLOGICAL Hx Neurological Disorder: No - HEENT Hx HEENT Problems: No - RENAL Hx Chronic Kidney Disease: No - ENDOCRINE/METABOLIC Hx Endocrine Disorders: No - HEMATOLOGICAL/ONCOLOGICAL Hx Blood Disorders: No - INTEGUMENTARY Hx Dermatological Problems: No - MUSCULOSKELETAL/RHEUMATOLOGICAL Hx Musculoskeletal Disorders: No Hx Falls: No - GASTROINTESTINAL Hx Pancreatitis: Yes - GENITOURINARY/GYNECOLOGICAL Hx Genitourinary Disorders: No - PSYCHIATRIC Hx Psychophysiologic Disorder: Yes (ETOH ABUSE-DAILY VODKA) Hx Substance Use: No (DENIES) - SURGICAL HISTORY Other/Comment: Cyst removal / ABCESS bilat armpit - ANESTHESIA Hx Anesthesia: Yes Hx Anesthesia Reactions: No Hx Malignant Hyperthermia: No Meds Allergies/Adverse Reactions: Allergies Allergy/AdvReac Type Severity Reaction Status Date / Time No Known Allergies Allergy Verified 07/07/18 02:55 Physical Exam - Constitutional Appears: No Acute Distress - Head Exam Head Exam: ATRAUMATIC, NORMAL INSPECTION, NORMOCEPHALIC - Eye Exam Eye Exam: EOMI, Normal appearance, PERRL Pupil Exam: NORMAL ACCOMODATION, PERRL - ENT Exam ENT Exam: Mucous Membranes Dry - Neck Exam Neck exam: Positive for: Normal Inspection - Respiratory Exam Respiratory Exam: Clear to Auscultation Bilateral, NORMAL BREATHING PATTERN - Cardiovascular Exam Cardiovascular Exam: Tachycardia, +S1, +S2 - GI/Abdominal Exam GI & Abdominal Exam: Normal Bowel Sounds, Soft, Tenderness (diffuse) - Extremities Exam Extremities exam: Positive for: normal inspection - Back Exam Back exam: NORMAL INSPECTION - Neurological Exam Neurological exam: Alert, CN II-XII Intact, Normal Gait, Oriented x3, Reflexes Normal - Psychiatric Exam Psychiatric exam: Anxious, Depressed - Skin Skin Exam: Dry, Intact, Normal Color, Warm Results - Vital Signs Recent Vital Signs: Last Vital Signs Temp 98 F 07/07/18 07:33 Pulse 86 07/07/18 07:33 Resp 19 07/07/18 07:33 BP 131/73 07/07/18 07:33 Pulse Ox 100 07/07/18 07:33 - Labs Result Diagrams: 07/07/18 04:06 07/07/18 04:06 Labs: Laboratory Results - last 24 hr 07/07/18 07/07/18 07/07/18 04:06 04:06 04:06 WBC 7.2 RBC 3.61 Hgb 10.9 L Hct 33.9 L MCV 93.9 MCH 30.2 MCHC 32.2 RDW 20.9 H Plt Count 309 MPV 9.1 Gran % 71.0 H Lymph % (Auto) 24.1 Wetzel % (Auto) 3.5 Eos % (Auto) 1.3 L Baso % (Auto) 0.1 Gran # 5.10 Lymph # (Auto) 1.7 Wetzel # (Auto) 0.3 Eos # (Auto) 0.1 Baso # (Auto) 0.01 PT 10.0 INR 0.88 APTT 30.0 Sodium 142 Potassium 3.5 L Chloride 106 Carbon Dioxide 21 Anion Gap 18 BUN < 2 L Creatinine 0.5 L Est GFR ( Amer) > 60 Est GFR (Non-Af Amer) > 60 Random Glucose 149 H Calcium 9.2 Total Bilirubin 0.3 AST 57 H D ALT 74 H Alkaline Phosphatase 117 Troponin I < 0.01 Total Protein 8.3 Albumin 4.4 Globulin 3.9 Albumin/Globulin Ratio 1.1 Lipase 332 H Urine Opiates Screen Urine Methadone Screen Ur Barbiturates Screen Ur Phencyclidine Scrn Ur Amphetamines Screen U Benzodiazepines Scrn U Oth Cocaine Metabols U Cannabinoids Screen Alcohol, Quantitative 07/07/18 07/07/18 04:06 06:00 WBC RBC Hgb Hct MCV MCH MCHC RDW Plt Count MPV Gran % Lymph % (Auto) Wetzel % (Auto) Eos % (Auto) Baso % (Auto) Gran # Lymph # (Auto) Wetzel # (Auto) Eos # (Auto) Baso # (Auto) PT INR APTT Sodium Potassium Chloride Carbon Dioxide Anion Gap BUN Creatinine Est GFR ( Amer) Est GFR (Non-Af Amer) Random Glucose Calcium Total Bilirubin AST ALT Alkaline Phosphatase Troponin I Total Protein Albumin Globulin Albumin/Globulin Ratio Lipase Urine Opiates Screen Negative Urine Methadone Screen Negative Ur Barbiturates Screen Negative Ur Phencyclidine Scrn Negative Ur Amphetamines Screen Negative U Benzodiazepines Scrn Negative U Oth Cocaine Metabols Negative U Cannabinoids Screen Negative Alcohol, Quantitative 127 H Assessment & Plan - Assessment and Plan (Free Text) Assessment: 28 F with a PMHx of Etoh abuse x 2 years - daily pint of vodka, pancreatitis and hydradenitis suppurativa s/p I&D presented [place] [facility] [place] with complaints of abdominal pain admitted for intractable abdominal pain with associated nausea and vomiting. Intractable abdominal pain 2/2 alcohol abuse, hx pancreatitis lipase WNL with LFT's consistent with alcohol abuse banana bag NPO, ice chips protonix 40 mg q12 Analgesics prn Etoh Abuse patient offered psych counselling, AA information, family contact, and director of social work eval - patient currently refusing CIWA Ativan chance and prn Banana bag Tobacco abuse cessation education and counselling nicoderm patch offered Hx Pancreatitis 2/2 etoh abuse pancreatic enzymes GI/DVT ppx protonix, scds Seen reviewed and discussed with attending Dr Jauregui <Marion Jauregui - Last Filed: 07/08/18 16:13> Results - Vital Signs Recent Vital Signs: Last Vital Signs Temp 98.1 F 07/08/18 12:00 Pulse 90 07/08/18 12:00 Resp 21 07/08/18 06:00 BP 143/94 H 07/08/18 12:00 Pulse Ox 96 07/08/18 06:00 - Labs Result Diagrams: 07/08/18 05:00 07/08/18 05:00 Labs: Laboratory Results - last 24 hr 07/08/18 07/08/18 05:00 05:00 WBC 5.4 D RBC 3.36 L Hgb 10.0 L Hct 32.0 L MCV 95.2 MCH 29.8 MCHC 31.3 RDW 21.6 H Plt Count 284 MPV 9.4 Gran % 56.3 Lymph % (Auto) 35.7 H Wetzel % (Auto) 5.9 Eos % (Auto) 1.9 Baso % (Auto) 0.2 Gran # 3.03 Lymph # (Auto) 1.9 Wetzel # (Auto) 0.3 Eos # (Auto) 0.1 Baso # (Auto) 0.01 Sodium 139 Potassium 3.8 Chloride 106 Carbon Dioxide 26 Anion Gap 11 BUN 4 L Creatinine 0.5 L Est GFR ( Amer) > 60 Est GFR (Non-Af Amer) > 60 Random Glucose 94 Calcium 9.2 Total Bilirubin 0.5 AST 67 H ALT 51 Alkaline Phosphatase 100 Total Protein 7.2 Albumin 3.7 Globulin 3.5 Albumin/Globulin Ratio 1.1 Attending/Attestation - Attestation I have personally seen and examined this patient.: Yes I have fully participated in the care of the patient.: Yes I have reviewed all pertinent clinical information: Yes Notes (Text): 07/08/18 16:06 Attending note; Patient seen and examined with resident in ER. Patient is alert and awake. Complaining of abdominal pain and nausea, vomiting. Patient is a 28 year old female well known to us with PMH of alcohol abuse, pancreatitis and hydradenitis suppurativa presenting to the ED for one day history of abdominal pain. Patient goes to multiple hospitals in ER for alcohol related issues. Complaining of nausea and vomiting. Complaining of abdominal pain; started on IV fluids. Nothing by mouth. IV Toradol when necessary. Lipase is mildly elevated. Complete alcohol cessation is strongly advised Patient referred to AA meetings and AA rehabilitation multiple times. Compliance with follow-up . Prognosis is poor secondary to continuous alcohol abuse and noncompliance with follow-up. Patient does not follow up with PMD. patient was given appointment to [facility] [place] multiple times.
[2018-07-07 08:42] VITALS: BMI 23.3
[2018-07-07] MEDS ORDERED: Multivitamin (MVI) 10 ML, Thiamine 100 MG, Folic Acid 1 MG, Potassium Chloride 20 MEQ i... IV ONE (10:30)
--- NOTE | 2018-07-07 18:46 | CARD ---
APPROVED REPORT Date of service: 07/07/2018 EKG Measurement Heart [id number] <Conclusion> Sinus tachycardia Otherwise normal ECG
[2018-07-08 06:17] VITALS: O2SAT 96
[2018-07-08 07:06] LABS: BASO # 0.01 K/mm3 (0.0-2.0); BASO % 0.2 % (0.0-3.0); EOS # 0.1 (0.0-0.7); EOS % 1.9 % (1.5-5.0); GRAN # 3.03 (1.4-6.5); GRAN % 56.3 % (50.0-68.0); LYMPH # 1.9 (1.2-3.4); LYMPH % 35.7 % (22.0-35.0); MEAN CELL VOLUME 95.2 fl (80.0-105.0); MEAN CORPUSCULAR HEMOGLOBIN 29.8 pg (25.0-35.0); MEAN CORPUSCULAR HGB CONC 31.3 g/dl (31.0-37.0); MEAN PLATELET VOLUME 9.4 fl (7.0-11.0); MONO # 0.3 (0.1-0.6); MONO % 5.9 % (1.0-6.0); RBC 3.36 10^6/uL (3.5-6.1); RED CELL DISTRIBUTION WIDTH 21.6 % (11.5-14.5); WHITE BLOOD COUNT 5.4 10^3/uL (4.5-11.0)
[2018-07-08 07:57] LABS: ALB/GLOB RATIO 1.1 (1.1-1.8); ALBUMIN 3.7 g/dL (3.0-4.8); ALT/SGPT 51 U/L (7-56); AST/SGOT 67 U/L (14-36); BLOOD UREA NITROGEN 4 mg/dL (7-21); CALCIUM 9.2 mg/dL (8.4-10.5); GFR NON-AFRICAN AMERICAN > 60
--- NOTE | 2018-07-08 14:13 | CP.PCM.PN ---
<Spenser Montiel - Last Filed: 07/08/18 14:06> Subjective - Date & Time of Evaluation Date of Evaluation: 07/08/18 Time of Evaluation: 07:30 - Subjective Subjective: Medicine Progress Note for Hospitalist Service, Dr. Juventino Montiel, DO PGY-1 Pt seen and examined at bedside this am. Observed crying. When I asked her why she was crying, she stated she felt anxious. I asked her why she was feeling anxious and she could not verbalize a reason. Denied feeling depressed, SI/HI. Pt states that she has felt anxious in the past but is not on any home medications for symptoms and has not followed up with a psychiatrist outpatient for management. Denies chest pain, sob, n/v/d/c, abd pain, urinary complaints, or other symptoms. States she wants to eat. Objective - Vital Signs/Intake and Output Vital Signs (last 24 hours): Temp Pulse Resp BP Pulse Ox 98.1 F 90 21 143/94 H 96 07/08/18 12:00 07/08/18 12:00 07/08/18 06:00 07/08/18 12:00 07/08/18 06:00 Intake and Output: 07/08/18 07/08/18 06:59 18:59 Intake Total 840 840 Output Total 4 4 Balance 836 836 - Medications Medications: Current Medications Folic Acid (Folic Acid) 1 mg PO DAILY [facility] Ketorolac Tromethamine (Toradol) 15 mg IVP Q6H PRN PRN Reason: Pain, moderate (4-7) Last Admin: 07/08/18 12:02 Dose: 15 mg Lorazepam (Ativan) 1 mg IVP Q4H PRN; Protocol PRN Reason: Symptoms of alcohol withdrawl Last Admin: 07/08/18 11:05 Dose: 1 mg Multivitamins (Thera Tab) 1 tab PO 0800 [facility] Nicotine (Nicoderm Cq) 1 patch TD DAILY [facility] Last Admin: 07/08/18 09:28 Dose: 1 patch Ondansetron HCl (Zofran Inj) 4 mg IVP Q4H PRN PRN Reason: Nausea/Vomiting Pantoprazole Sodium (Protonix Inj) 40 mg IVP Q12 [facility] Last Admin: 07/08/18 09:28 Dose: 40 mg Thiamine HCl (Vitamin B1 Tab) 100 mg PO DAILY [facility] - Labs Labs: 07/08/18 05:00 07/08/18 05:00 PT 10.0 SECONDS (9.4-12.5) 07/07/18 04:06 INR 0.88 07/07/18 04:06 APTT 30.0 Seconds (25.1-36.5) 07/07/18 04:06 - Constitutional Appears: Non-toxic, In Acute Distress - Head Exam Head Exam: ATRAUMATIC, NORMOCEPHALIC - Eye Exam Eye Exam: EOMI, Normal appearance, PERRL - ENT Exam ENT Exam: Mucous Membranes Moist - Neck Exam Neck Exam: Full ROM, Normal Inspection - Respiratory Exam Respiratory Exam: Clear to Ausculation Bilateral, NORMAL BREATHING PATTERN. absent: Rales, Rhonchi, Wheezes - Cardiovascular Exam Cardiovascular Exam: REGULAR RHYTHM, +S1, +S2. absent: Gallop, Rubs, Murmur - GI/Abdominal Exam GI & Abdominal Exam: Soft, Normal Bowel Sounds. absent: Distended, Guarding, Tenderness, Organomegaly - Extremities Exam Extremities Exam: Full ROM, Normal Capillary Refill, Normal Inspection. absent: Pedal Edema, Tenderness - Back Exam Back Exam: Full ROM, NORMAL INSPECTION. absent: paraspinal tenderness - Neurological Exam Neurological Exam: Alert, Awake, CN II-XII Intact, Oriented x3 - Psychiatric Exam Psychiatric exam: Anxious - Skin Skin Exam: Dry, Intact, Normal Color, Warm Assessment and Plan - Assessment and Plan (Free Text) Assessment: 28 y o female with a PMHx of alcohol abuse x 2 years - daily pint of vodka, pancreatitis and hydradenitis suppurativa s/p I&D [place] [facility] [place] complaints of abdominal pain admitted for intractable abdominal pain with associated nausea and vomiting. Also admitted for management of EtOH withdrawal. Plan: Intractable abdominal pain - improving 2/2 alcohol abuse, hx pancreatitis Lipase 332, LFTs trending down MVT, folate, thiamine Advanced to soft diet, cont to monitor protonix 40 mg q12 Analgesics prn EtOH Abuse Patient offered psych counselling, AA information, family contact, and psych social worker eval - patient currently refusing; pending social work recs CIWA protocol, most recent score of 4, on Ativan IV Ativan prn Banana bag Tobacco abuse Cessation, education and counseling given to pt Nicoderm patch offered Anxiety Likely 2/2 EtOH abuse vs. chronic anxiety Psych consulted, recs appreciated Hx Pancreatitis 2/2 EtOH abuse Lipase 332 on admission GI/DVT ppx: Protonix/SCDs Pt seen, examined with, and plan discussed with Dr. Jauregui, attending physician. Spenser Montiel DO PGY-1, Aquaculture Director Pager #[phone] <Marion Jauregui - Last Filed: 07/08/18 16:30> Objective - Vital Signs/Intake and Output Vital Signs (last 24 hours): Temp Pulse Resp BP Pulse Ox 98.1 F 90 21 143/94 H 96 07/08/18 12:00 07/08/18 12:00 07/08/18 06:00 07/08/18 12:00 07/08/18 06:00 Intake and Output: 07/08/18 07/08/18 06:59 18:59 Intake Total 840 840 Output Total 4 4 Balance 836 836 - Medications Medications: Current Medications Folic Acid (Folic Acid) 1 mg PO DAILY [facility] Ketorolac Tromethamine (Toradol) 15 mg IVP Q6H PRN PRN Reason: Pain, moderate (4-7) Last Admin: 07/08/18 12:02 Dose: 15 mg Lorazepam (Ativan) 2 mg IVP Q6 PRN; Protocol PRN Reason: Symptoms of alcohol withdrawl Multivitamins (Thera Tab) 1 tab PO 0800 [facility] Nicotine (Nicoderm Cq) 1 patch TD DAILY [facility] Last Admin: 07/08/18 09:28 Dose: 1 patch Ondansetron HCl (Zofran Inj) 4 mg IVP Q4H PRN PRN Reason: Nausea/Vomiting Pantoprazole Sodium (Protonix Inj) 40 mg IVP Q12 [facility] Last Admin: 07/08/18 09:28 Dose: 40 mg Thiamine HCl (Vitamin B1 Tab) 100 mg PO DAILY [facility] - Labs Labs: 07/08/18 05:00 07/08/18 05:00 PT 10.0 SECONDS (9.4-12.5) 07/07/18 04:06 INR 0.88 07/07/18 04:06 APTT 30.0 Seconds (25.1-36.5) 07/07/18 04:06 Attending/Attestation - Attestation I have personally seen and examined this patient.: Yes I have fully participated in the care of the patient.: Yes I have reviewed all pertinent clinical information, including history, physical exam and plan: Yes Notes (Text): 07/08/18 16:13 Attending note; Patient seen and examined with resident. Patient is alert and awake. Complaining of abdominal pain and nausea, vomiting. Patient is a 28 year old female well known to us with PMH of alcohol abuse, pancreatitis and hydradenitis suppurativa presenting to the ED for one day hi story of abdominal pain. Patient goes to multiple hospitals in ER for alcohol related issues. Complaining of nausea and vomiting. Complaining of abdominal pain; started on IV fluids. Nothing by mouth. IV Toradol when necessary. Lipase is mildly elevated. Complete alcohol cessation is strongly advised Patient referred to AA meetings and AA rehabilitation multiple times. Compliance with follow-up . Prognosis is poor secondary to continuous alcohol abuse and noncompliance with follow-up. Patient does not follow up with PMD. patient was given appointment to [facility] clinic multiple times.
[2018-07-08 18:24] VITALS: BP 136/85; PULSE 98; RESP 18; TEMP 98.2
--- NOTE | 2018-07-08 18:38 | CP.PCM.DIS ---
Provider - Provider Date of Admission: 07/07/18 06:21 Attending physician: Marion Jauregui MD Consults: 07/08/18 10:19 Psychiatry Consult Routine Comment: Consulting Provider: Gina Rizvi Consulting Physician: Gina Rizvi Reason for Consult: anxiety Time Spent in preparation of Discharge (in minutes): 45 Diagnosis - Discharge Diagnosis (1) Anxiety Status: Acute (2) Abdominal pain Status: Acute (3) Alcoholism Status: Chronic (4) EtOH dependence Status: Chronic (5) Nausea & vomiting Status: Acute Hospital Course - Lab Results Lab Results: Most Recent Lab Values WBC 5.4 10^3/uL (4.5-11.0) D 07/08/18 05:00 RBC 3.36 10^6/uL (3.5-6.1) L 07/08/18 05:00 Hgb 10.0 g/dL (12.0-16.0) L 07/08/18 05:00 Hct 32.0 % (36.0-48.0) L 07/08/18 05:00 MCV 95.2 fl (80.0-105.0) 07/08/18 05:00 MCH 29.8 pg (25.0-35.0) 07/08/18 05:00 MCHC 31.3 g/dl (31.0-37.0) 07/08/18 05:00 RDW 21.6 % (11.5-14.5) H 07/08/18 05:00 Plt Count 284 10^3/uL (120.0-450.0) 07/08/18 05:00 MPV 9.4 fl (7.0-11.0) 07/08/18 05:00 Gran % 56.3 % (50.0-68.0) 07/08/18 05:00 Lymph % (Auto) 35.7 % (22.0-35.0) H 07/08/18 05:00 Alcorn % (Auto) 5.9 % (1.0-6.0) 07/08/18 05:00 Eos % (Auto) 1.9 % (1.5-5.0) 07/08/18 05:00 Baso % (Auto) 0.2 % (0.0-3.0) 07/08/18 05:00 Gran # 3.03 (1.4-6.5) 07/08/18 05:00 Lymph # (Auto) 1.9 (1.2-3.4) 07/08/18 05:00 Alcorn # (Auto) 0.3 (0.1-0.6) 07/08/18 05:00 Eos # (Auto) 0.1 (0.0-0.7) 07/08/18 05:00 Baso # (Auto) 0.01 K/mm3 (0.0-2.0) 07/08/18 05:00 PT 10.0 SECONDS (9.4-12.5) 07/07/18 04:06 INR 0.88 07/07/18 04:06 APTT 30.0 Seconds (25.1-36.5) 07/07/18 04:06 Sodium 139 mmol/L (132-148) 07/08/18 05:00 Potassium 3.8 mmol/L (3.6-5.0) 07/08/18 05:00 Chloride 106 mmol/L (98-107) 07/08/18 05:00 Carbon Dioxide 26 mmol/L (21-33) 07/08/18 05:00 Anion Gap 11 (10-20) 07/08/18 05:00 BUN 4 mg/dL (7-21) L 07/08/18 05:00 Creatinine 0.5 mg/dl (0.7-1.2) L 07/08/18 05:00 Est GFR ( Amer) > 60 07/08/18 05:00 Est GFR (Non-Af Amer) > 60 07/08/18 05:00 Random Glucose 94 mg/dL (70-110) 07/08/18 05:00 Calcium 9.2 mg/dL (8.4-10.5) 07/08/18 05:00 Phosphorus 4.6 mg/dL (2.5-4.5) H 07/07/18 07:19 Magnesium 1.7 mg/dL (1.7-2.2) 07/07/18 07:19 Total Bilirubin 0.5 mg/dL (0.2-1.3) 07/08/18 05:00 AST 67 U/L (14-36) H 07/08/18 05:00 ALT 51 U/L (7-56) 07/08/18 05:00 Alkaline Phosphatase 100 U/L (38-126) 07/08/18 05:00 Troponin I < 0.01 ng/mL 07/07/18 04:06 Total Protein 7.2 g/dL (5.8-8.3) 07/08/18 05:00 Albumin 3.7 g/dL (3.0-4.8) 07/08/18 05:00 Globulin 3.5 gm/dL 07/08/18 05:00 Albumin/Globulin Ratio 1.1 (1.1-1.8) 07/08/18 05:00 Lipase 332 U/L (23-300) H 07/07/18 04:06 Urine Opiates Screen Negative (NEGATIVE) 07/07/18 06:00 Urine Methadone Screen Negative (NEGATIVE) 07/07/18 06:00 Ur Barbiturates Screen Negative (NEGATIVE) 07/07/18 06:00 Ur Phencyclidine Scrn Negative (NEGATIVE) 07/07/18 06:00 Ur Amphetamines Screen Negative (NEGATIVE) 07/07/18 06:00 U Benzodiazepines Scrn Negative (NEGATIVE) 07/07/18 06:00 U Oth Cocaine Metabols Negative (NEGATIVE) 07/07/18 06:00 U Cannabinoids Screen Negative (NEGATIVE) 07/07/18 06:00 Alcohol, Quantitative 127 mg/dL (0-10) H 07/07/18 04:06 - Hospital Course Hospital Course: HPI at time of admission: "28 y o female with a PMHx of Etoh abuse x 2 years - daily pint of vodka, pancreatitis and hidradenitis suppurativa s/p I&D presented to the [facility] ED with complaints of epigastric abdominal pain that radiates to her chest 8/10 in intensity at its worst and the pain fluctuates but remains constant. No alleviating or exacerbating factors. Patient lat ate yesterday afternoon, finished drinking her vodka at around 9pm, found herself nauseous this morning and after vomiting, her abdominal pain began. Patient has had a total of 3-4 episodes of NBNB emesis. Patient was previously admitted for similar symptoms previously. Patient also was recently discharged from [facility] [place] yesterday morning with same complaints. Patient denied any fever, chills, headaches, shortness of breath, diarrhea, dysuria, neck pain, headache, dizziness, or any other complaints." Hospital Course: EKG 07/07: sinus tachycardia at 117 bpm, no acute St-t wave changes appreciated. Pt was admitted for intractable abdominal pain with associated nausea and vomiting. Pt was also managed for EtOH withdrawal, placed on CIWA protocol. Nausea and vomiting improved during admission and pt was advanced to soft diet. Pt was offered psychiatric counseling, AA counseling, and social work resources, which pt declined during her admission. Psychiatry was consulted for worsening anxiety that pt was experiencing on 07/08/18. Pt left against medical advice on 07/08/18. Discussion of risks of leaving against medical advice, including worsening of clinical symptoms, seizure, coma, possible , was had with pt at bedside who understood course of her decision. AMA forms were signed at bedside with RN as witness. For further details about admission, please refer to hospital EMR. Discharge Exam - Head Exam Head Exam: ATRAUMATIC, NORMOCEPHALIC Additional comments: Unable to perform physical exam due to pt leaving against medical advice. Discharge Plan - Follow Up Plan Condition: STABLE Disposition: HOME/ ROUTINE Additional Instructions: Please follow up with your primary medical doctor or with our outpatient clinic at [facility] within 3-5 days of discharge. Please continue home medications as prescribed. Please STOP DRINKING ALCOHOL. This will cause your abdominal pain. ALCOHOL is harmful to your body. PLEASE STOP SMOKING as well. Recommend to follow up with a psychiatrist as outpatient. If your symptoms worsen, please go to the nearest emergency department.
--- NOTE | 2018-07-08 23:50 | CON ---
DATE: 07/08/2018 HISTORY OF PRESENT ILLNESS: Shortly, the patient is a 28-year-old female with reported history of alcohol use disorder, pancreatitis. The patient was admitted on the medical side for evaluation of abdominal pain and possible pancreatitis. Psych consult was called because the patient has a history of alcohol use disorder and presented to be depressed. The patient was seen and examined today. The patient presented with marginal personal hygiene, intermittent eye contact. Speech was somewhat underproductive and low volume. The patient seems to be disengaged and not willing to have conversation. The patient described her mood as okay. Affect was constricted, mood congruent. Mood described as "I don't feel comfortable, I am withdrawing." Thought process seems to be coherent, goal directed. Thought content, the patient denied visual, auditory, or tactile hallucinations. Denied paranoid ideation. The patient does not appear to be psychotic. Insight and judgment seems to be fair. Impulses are well controlled. Previous hospitalizations reviewed. The patient was in [facility] in May 2017, was prescribed trazodone, but the patient was not interested to be resumed as well as Vistaril. The patient was asking for Ativan to be increased for her; it is up to the medical team. The patient is quite aware of her medical issues. Reported that this is not the first time when she has pancreatitis and she feels that it is related to alcohol use disorder. On top of that, the patient said that she is drinking about one pint of vodka on a daily basis. The patient denied hearing voices, denied seeing things, denied paranoid ideations. The patient does not appear to be psychotic. PHYSICAL EXAMINATION: VITAL SIGNS: Reviewed. Temperature 98.1, blood pressure 143/94, respirations 21, oxygen saturation is 96. MEDICATIONS: Reviewed. The patient is on Toradol, folic acid, Ativan 1 mg every 4 hours, multivitamins, Nicoderm, Zofran, Protonix, thiamine. LABORATORY DATA: Labs reviewed. Most recent was from today. Lipase was 332. IMPRESSION: Most likely, the patient has alcohol use disorder, rule out substance-induced mood disorder, rule out alcohol withdrawal symptoms. PLAN: Multivitamins, thiamine, and folic acid. The patient is on n.p.o. This typewriter operator automatic would suggest possibly increase the dose of Ativan and decrease frequency. Meanwhile, the patient denied being depressed. The patient denied homicidal or suicidal ideation. The patient is not agitated. This typewriter operator automatic would suggest to increase the dose of Ativan to 2 mg every 6 hours and taper down that medication by 25% a day. Should you have any questions, give me a call back. This typewriter operator automatic discussed with the patient option to go to inpatient rehab. The patient expressed no interest. Meanwhile, continue current management. Continue current medication. We will follow up and advise accordingly. Gina Rizvi MD
[2018-07-09] MEDS ORDERED: Multivitamin Therapeutic Tab PO SCH (08:00)
--- NOTE | 2018-07-09 14:55 | CP.PCM.PCO ---
Physician Communication Note - Physician Communication Note Physician Communication Note: pt was d/c
== END 2018-07-08 19:14 | disposition left against medical advice (07) | DRG 241 ==
LOC: ED 02:48 → ERH 06:21 → 2RNO 08:07
PROVIDERS: ADMIT Internal Medicine; ATTEND Internal Medicine
DX: K29.20 Alcoholic gastritis without bleeding (principal); F10.239 Alcohol dependence with withdrawal, unspecified; F41.9 Anxiety disorder, unspecified; Z91.19 Patient's noncompliance with other medical treatment and regimen; Z72.0 Tobacco use

== ENCOUNTER 2018-07-09 23:31 | Observation (INO) | payer MEDICAID ==
[2018-07-09 23:32] VITALS: BMI 23.3
--- NOTE | 2018-07-10 01:57 | ED PDOC ---
Arrival/HPI - General Chief Complaint: Abdominal Pain Time Seen by Provider: 07/10/18 01:47 Historian: Patient - History of Present Illness Narrative History of Present Illness (Text): 07/10/18 01:56 Tsering Merlos is a 28 year old female, whose past medical history includes pancreatitis, alcohol abuse, and hydradenitis suppuruative, who presents to the Emergency department complaining of abdominal pain. Patient was recently admitt ed to the hospital for alcoholic gastritis, however patient left against medical advice on 07/08/18. Patient states upper abdominal returned and notes she has also been experiencing associated nausea and vomiting. Patient notes she last consumed alcohol was yesterday and notes symptoms are similar to previous episodes of pancreatitis. Patient denies any fever, chills, chest pain, shortness of breath, urinary symptoms, back pain, neck pain, headache, dizziness, or any other complaints. Symptom Onset: Gradual Symptom Course: Unchanged Activities at Onset: Light Context: Home Past Medical History - Provider Review Nursing Documentation Reviewed: Yes - Infectious Disease Hx of Infectious Diseases: None - Tetanus Immunization Tetanus Immunization: Unknown - Cardiac Hx Cardiac Disorders: No - Pulmonary Hx Respiratory Disorders: No - Neurological Hx Neurological Disorder: No - HEENT Hx HEENT Disorder: No - Renal Hx Renal Disorder: No - Endocrine/Metabolic Hx Endocrine Disorders: No - Hematological/Oncological Hx Blood Disorders: No - Integumentary Hx Dermatological Disorder: No - Musculoskeletal/Rheumatological Hx Musculoskeletal Disorders: No Hx Falls: No - Gastrointestinal Hx Pancreatitis: Yes - Genitourinary/Gynecological Hx Genitourinary Disorders: No - Psychiatric Hx Psychophysiologic Disorder: Yes (ETOH ABUSE-DAILY VODKA) Hx Substance Use: No (DENIES) - Surgical History Other/Comment: Cyst removal / ABCESS bilat armpit - Anesthesia Hx Anesthesia: Yes Hx Anesthesia Reactions: No Hx Malignant Hyperthermia: No Family/Social History - Physician Review Nursing Documentation Reviewed: Yes Family/Social History: Unknown Family HX Smoking Status: Heavy Smoker > 10 Cigarettes Daily Hx Alcohol Use: Yes (DAILY VODKA) Hx Substance Use: No (DENIES) Allergies/Home Meds Allergies/Adverse Reactions: Allergies No Known Allergies Allergy (Verified 07/10/18 01:29) Review of Systems - Physician Review All systems were reviewed & negative as marked: Yes - Review of Systems Constitutional: Normal. absent: Fevers Eyes: Normal ENT: Normal Respiratory: Normal. absent: SOB, Cough Cardiovascular: Normal. absent: Chest Pain Gastrointestinal: Abdominal Pain Genitourinary Female: Normal Musculoskeletal: Normal Skin: Normal. absent: Rash Neurological: Normal Endocrine: Normal Hemo/Lymphatic: Normal Psychiatric: Normal Physical Exam Vital Signs Reviewed: Yes Vital Signs Temp Pulse Resp BP Pulse Ox 07/10/18 01:41 98.3 F 106 H 18 129/84 99 Temperature: Afebrile Blood Pressure: Normal Pulse: Regular Respiratory Rate: Normal Appearance: Positive for: Well-Appearing, Non-Toxic, Comfortable Pain Distress: None Mental Status: Positive for: Alert and Oriented X 3 - Systems Exam Head: Present: Atraumatic, Normocephalic Pupils: Present: PERRL Extroacular Muscles: Present: EOMI Conjunctiva: Present: Normal Mouth: Present: Moist Mucous Membranes Neck: Present: Normal Range of Motion Respiratory/Chest: Present: Clear to Auscultation, Good Air Exchange. No: Respiratory Distress, Accessory Muscle Use Cardiovascular: Present: Regular Rate and Rhythm, Normal S1, S2. No: Murmurs Abdomen: Present: Tenderness (Epigastric tenderness). No: Distention, Peritoneal Signs Back: Present: Normal Inspection Upper Extremity: Present: Normal Inspection. No: Cyanosis, Edema Lower Extremity: Present: Normal Inspection. No: Edema Neurological: Present: GCS=15, CN II-XII Intact, Speech Normal Skin: Present: Warm, Dry, Normal Color. No: Rashes Psychiatric: Present: Alert, Oriented x 3, Normal Insight, Normal Concentration Medical Decision Making ED Course and Treatment: 07/10/18 01:56 Impression: 28 year old female complaining of upper abdominal pain, nausea, and vomiting. Plan: -- Labs, alcohol level, lipase -- IV fluids -- Toradol -- Zofran -- Pepcid -- Reassess and disposition Prior Visits: Notes and results from previous visits were reviewed. Progress Notes: 07/10/18 05:15 CIWA score = 2. Case discussed with medical pathology teacher supervisor inspection, who is aware and agrees with plan. 07/10/18 05:[address] Maryanne Villanueva, who is aware and agrees with plan. Accepts pt in to hospitalist service. Pt will go to remote telemetry observation for alcoholic gastritis. - Scribe Statement The provider has reviewed the documentation as recorded by the Scribe Lucy Brenda Provider Erice Attestation: All medical record entries made by the Isai were at my direction and personally dictated by me. I have reviewed the chart and agree that the record accurately reflects my personal performance of the history, physical exam, medical decision making, and the department course for this patient. I have also personally directed, reviewed, and agree with the discharge instructions and disposition. Disposition/Present on Arrival - Present on Arrival Any Indicators Present on Arrival: No History of DVT/PE: No History of Uncontrolled Diabetes: No Urinary Catheter: No History of Decub. Ulcer: No History Surgical Site Infection Following: None - Disposition Have Diagnosis and Disposition been Completed?: Yes Diagnosis: Acute pancreatitis, Alcoholic gastritis Disposition: HOSPITALIZED Disposition Time: 05:21 Patient Plan: Observation Patient Problems: Current Active Problems Problem Status Onset Acute pancreatitis Acute Alcoholic gastritis Acute Condition: STABLE
[2018-07-10] MEDS ORDERED: Sodium Chloride 0.9% 1,000 ML IV STA (01:59)
[2018-07-10 03:18] LABS: HEMOGLOBIN 10.8 g/dL (12.0-16.0); MEAN CELL VOLUME 94.9 fl (80.0-105.0); MEAN CORPUSCULAR HEMOGLOBIN 30.3 pg (25.0-35.0); RBC 3.56 10^6/uL (3.5-6.1); RED CELL DISTRIBUTION WIDTH 22.1 % (11.5-14.5); WHITE BLOOD COUNT 5.7 10^3/uL (4.5-11.0)
[2018-07-10 03:37] LABS: ALB/GLOB RATIO 1.3 (1.1-1.8); ALBUMIN 4.7 g/dL (3.0-4.8); ALT/SGPT 58 U/L (7-56); AST/SGOT 74 U/L (14-36); BLOOD UREA NITROGEN 7 mg/dL (7-21); CALCIUM 9.6 mg/dL (8.4-10.5); GFR NON-AFRICAN AMERICAN > 60; LIPASE 322 U/L (23-300)
[2018-07-10] MEDS ORDERED: Folic Acid 1 MG, Thiamine 100 MG, Multivitamin (MVI) 10 ML in Dextrose 5% In Water 1,00... IV SCH (05:45)
--- NOTE | 2018-07-10 07:49 | CP.PCM.HP ---
History of Present Illness - History of Present Illness History of Present Illness: Greg Cooney DO, PGY1. H&P for hospitalist service 28 year old female with PMH of alcohol abuse, pancreatitis and hydradenitis supp urativa presenting to the ED for one day history of epigastric stabbing, constant abdominal pain 10/10, radiates to the back. No alleviating or worsening factors. Patient was recently admitted to [facility] with similar symptoms on 07/07 and signed AMA the next day. Patient reports drinking alcohol after leaving the hospital, last drink of 1/2 pint of vodka few hours before coming. She denies CP, SOB, fevers, headaches, constipation, urinary complaints, numbness, tingling, swelling, recent travel, sickness, trauma, lifestyle changes including diet and weight loss/gain. 12 point ROS noted here, otherwise unremarkable. PMD: none PMH: pancreatitis, alcohol abuse, and hydradenitis suppurativa SH: admits to smoking 10 ciggs/day for 10 years, drinks about 1/2 pint per day on most days and denies drug use Sx: b/l axilla abscess removal from hydradenitis suppurativa All: NKDA FH: denies Meds: denies Present on Admission - Present on Admission Any Indicators Present on Admission: No Past Patient History - Infectious Disease Hx of Infectious Diseases: None - Tetanus Immunizations Tetanus Immunization: Unknown - Past Medical History & Family History Past Medical History?: Yes - Past Social History Smoking Status: Heavy Smoker > 10 Cigarettes Daily - CARDIAC Hx Cardiac Disorders: No - PULMONARY Hx Respiratory Disorders: No - NEUROLOGICAL Hx Neurological Disorder: No - HEENT Hx HEENT Problems: No - RENAL Hx Chronic Kidney Disease: No - ENDOCRINE/METABOLIC Hx Endocrine Disorders: No - HEMATOLOGICAL/ONCOLOGICAL Hx Blood Disorders: No - INTEGUMENTARY Hx Dermatological Problems: No - MUSCULOSKELETAL/RHEUMATOLOGICAL Hx Musculoskeletal Disorders: No Hx Falls: No - GASTROINTESTINAL Hx Pancreatitis: Yes - GENITOURINARY/GYNECOLOGICAL Hx Genitourinary Disorders: No - PSYCHIATRIC Hx Psychophysiologic Disorder: Yes (ETOH ABUSE-DAILY VODKA) Hx Substance Use: No (DENIES) - SURGICAL HISTORY Other/Comment: Cyst removal / ABCESS bilat armpit - ANESTHESIA Hx Anesthesia: Yes Hx Anesthesia Reactions: No Hx Malignant Hyperthermia: No Meds Allergies/Adverse Reactions: Allergies Allergy/AdvReac Type Severity Reaction Status Date / Time No Known Allergies Allergy Verified 07/10/18 01:29 Physical Exam - Constitutional Appears: Well, Non-toxic Additional comments: in mild distree due to abd pain - Head Exam Head Exam: ATRAUMATIC, NORMAL INSPECTION, NORMOCEPHALIC - Eye Exam Eye Exam: EOMI, Normal appearance, PERRL Pupil Exam: NORMAL ACCOMODATION, PERRL Additional comments: conjunctival redness - ENT Exam ENT Exam: Mucous Membranes Dry - Neck Exam Neck exam: Positive for: Normal Inspection - Respiratory Exam Respiratory Exam: Clear to Auscultation Bilateral, NORMAL BREATHING PATTERN - Cardiovascular Exam Cardiovascular Exam: REGULAR RHYTHM, +S1, +S2. absent: Gallop, Rubs - GI/Abdominal Exam GI & Abdominal Exam: Hypoactive Bowel Sounds, Soft, Tenderness (epigastric). absent: Pulsatile Mass, Rebound - Extremities Exam Extremities exam: Positive for: normal capillary refill, normal inspection, pedal pulses present - Back Exam Back exam: NORMAL INSPECTION - Neurological Exam Neurological exam: Alert, CN II-XII Intact, Normal Gait, Oriented x3, Reflexes Normal - Psychiatric Exam Psychiatric exam: Anxious, Depressed - Skin Skin Exam: Diaphoretic, Intact, Normal Color, Warm Results - Vital Signs Recent Vital Signs: Last Vital Signs Temp 98.3 F 07/10/18 01:41 Pulse 91 H 07/10/18 06:30 Resp 16 07/10/18 06:30 BP 138/99 H 07/10/18 06:30 Pulse Ox 99 07/10/18 06:30 - Labs Result Diagrams: 07/10/18 02:59 07/10/18 02:59 Labs: Laboratory Results - last 24 hr 07/10/18 07/10/18 07/10/18 02:59 02:59 02:59 WBC 5.7 RBC 3.56 Hgb 10.8 L Hct 33.8 L MCV 94.9 MCH 30.3 MCHC 32.0 RDW 22.1 H Plt Count 340 MPV 9.0 Sodium 144 Potassium 3.8 Chloride 105 Carbon Dioxide 24 Anion Gap 19 BUN 7 Creatinine 0.5 L Est GFR ( Amer) > 60 Est GFR (Non-Af Amer) > 60 Random Glucose 133 H Calcium 9.6 Phosphorus Magnesium Total Bilirubin 0.4 AST 74 H ALT 58 H Alkaline Phosphatase 100 Total Protein 8.3 Albumin 4.7 Globulin 3.6 Albumin/Globulin Ratio 1.3 Lipase 322 H Alcohol, Quantitative 114 H 07/10/18 03:00 WBC RBC Hgb Hct MCV MCH MCHC RDW Plt Count MPV Sodium Potassium Chloride Carbon Dioxide Anion Gap BUN Creatinine Est GFR ( Amer) Est GFR (Non-Af Amer) Random Glucose Calcium Phosphorus 4.7 H Magnesium 1.4 L Total Bilirubin AST ALT Alkaline Phosphatase Total Protein Albumin Globulin Albumin/Globulin Ratio Lipase Alcohol, Quantitative Assessment & Plan - Assessment and Plan (Free Text) Assessment: 28 year old female with PMH of alcohol abuse, pancreatitis and hydradenitis suppurativa presenting to the ED for one day history of epigastric abdominal pain after drinking 1/2 pint of vodka Plan: Intractable abdominal pain -h/o pancreatitis with alcohol abuse -elevated lipase and LFT -banana bag -Ativan chance and prn -CIWA protocol -morphine prn -NPO -pepcid -monitor for withdrawal symptoms chronic pancreatitis -due to alcohol abuse -elevated lipase -pain management prn Tobacco abuse -education and counselling regarding cessation -continue nicoderm patch NPO PPX with SCD and pepcid Case reviewed and plan discussed with attending Dr Maryanne Villanueva
[2018-07-10] MEDS ORDERED: Iohexol 350 MG/100 ML VIAL ONE (07:58)
[2018-07-10] MEDS ORDERED: Magnesium Sulfate 2 gm/50 ml 2 GM/50 ML BAG IVPB ONE (08:21)
--- NOTE | 2018-07-10 09:06 | CT ---
Date of service: 07/10/2018 PROCEDURE: CT Abdomen and Pelvis with contrast HISTORY: Abdominal pain. Pancreatitis suspected. COMPARISON: 05/28/2018 and 06/24/[address] scans abdomen and pelvis TECHNIQUE: Intravenous contrast dose: Radiation dose: Total exam DLP = <inf_radiation_dlp> mGy-cm. This CT exam was performed using one or more of the following dose reduction techniques: Automated exposure control, adjustment of the mA and/or kV according to patient size, and/or use of iterative reconstruction technique. FINDINGS: LOWER THORAX: Unremarkable. LIVER: Hepatic steatosis with focal fatty sparing of the right lobe adjacent to the falciform ligament. GALLBLADDER AND BILE DUCTS: Unremarkable. PANCREAS: Persistent inflammatory changes head of the pancreas without evidence necrotizing pancreatitis. No evidence pseudocyst formation. The body and tail of the pancreas are unremarkable. SPLEEN: Unremarkable. ADRENALS: Unremarkable. No mass. KIDNEYS AND URETERS: Unremarkable. No hydronephrosis. No solid mass. VASCULATURE: Unremarkable. No aortic aneurysm. No atherosclerotic calcification or mural plaque present. BOWEL: Resolution of previously identified sigmoid inflammatory change. APPENDIX: Normal appendix. PERITONEUM: Unremarkable. No free fluid. No free air. LYMPH NODES: Unremarkable. No enlarged lymph nodes. BLADDER: Unremarkable. REPRODUCTIVE: Enlarged anteverted uterus. Contrast-enhancing characteristics in the right adnexa including enhancement of wall of deformed cyst likely recent ruptured cyst. No free fluid identified. BONES: No acute fracture. OTHER FINDINGS: None. IMPRESSION: Mild inflammatory changes confined to the head of the pancreas consistent with acute pancreatitis. No evidence of necrotizing pancreatitis. Resolution of inflammatory changes in the sigmoid colon Additional benign and/or incidental findings described above.
[2018-07-10 11:43] LABS: BARBITURATES, UR NEGATIVE (NEGATIVE); BENZODIAZEPINES, UR NEGATIVE (NEGATIVE); OPIATES, UR NEGATIVE (NEGATIVE); PHENCYCLIDINE, UR NEGATIVE (NEGATIVE)
[2018-07-10] MEDS ORDERED: Influenza Vaccine 60 mcg/0.5 mL SYR (4YR UP) IM ONE (14:00)
[2018-07-10] MEDS ORDERED: Pneumococcal 23-Valent Vaccine IM ONE (14:00)
[2018-07-10] MEDS: Folic Acid 1 MG, Thiamine 100 MG, Multivitamin (MVI) 10 ML in Dextrose 5% In Water 1,00... IV SCH ×2 (15:30→19:45)
[2018-07-10 17:20] VITALS: RESP 19; O2SAT 100
--- NOTE | 2018-07-10 20:37 | CARD ---
APPROVED REPORT Date of service: 07/10/2018 EKG Measurement Heart [id number] <Conclusion> Normal sinus rhythm T wave abnormality, consider anterior ischemia Prolonged QT Abnormal ECG
[2018-07-11] MEDS: Folic Acid 1 MG, Thiamine 100 MG, Multivitamin (MVI) 10 ML in Dextrose 5% In Water 1,00... IV SCH (04:58)
[2018-07-11 06:40] LABS: BASO # 0.02 K/mm3 (0.0-2.0); BASO % 0.4 % (0.0-3.0); EOS # 0.1 (0.0-0.7); EOS % 2.8 % (1.5-5.0); GRAN # 2.58 (1.4-6.5); GRAN % 54.9 % (50.0-68.0); HEMOGLOBIN 9.5 g/dL (12.0-16.0); LYMPH # 1.4 (1.2-3.4); LYMPH % 30.6 % (22.0-35.0); MEAN CELL VOLUME 93.9 fl (80.0-105.0); MEAN CORPUSCULAR HEMOGLOBIN 29.1 pg (25.0-35.0); MEAN CORPUSCULAR HGB CONC 30.9 g/dl (31.0-37.0); MEAN PLATELET VOLUME 9.1 fl (7.0-11.0); MONO # 0.5 (0.1-0.6); MONO % 11.3 % (1.0-6.0); RBC 3.27 10^6/uL (3.5-6.1); WHITE BLOOD COUNT 4.7 10^3/uL (4.5-11.0)
[2018-07-11 06:43] LABS: ALB/GLOB RATIO 1.1 (1.1-1.8); ALBUMIN 3.7 g/dL (3.0-4.8); ALT/SGPT 44 U/L (7-56); AST/SGOT 52 U/L (14-36); BLOOD UREA NITROGEN 4 mg/dL (7-21); CALCIUM 8.9 mg/dL (8.4-10.5); GFR NON-AFRICAN AMERICAN > 60
[2018-07-11] MEDS ORDERED: Potassium Chloride 20 mEq/15 ml LIQ UD PO STA (07:53)
[2018-07-11 08:13] VITALS: BP 128/89; PULSE 82; TEMP 98.1
--- NOTE | 2018-07-11 12:36 | CP.PCM.DIS ---
<Spenser Montiel - Last Filed: 07/11/18 13:25> Provider - Provider Date of Admission: 07/10/18 05:20 Attending physician: Mayelin Ledesma MD Primary care physician: None Time Spent in preparation of Discharge (in minutes): 45 Diagnosis - Discharge Diagnosis (1) Abdominal pain Status: Resolved (2) Alcoholic liver disease Status: Chronic (3) Alcoholic pancreatitis Status: Chronic (4) Anxiety Status: Chronic (5) Tobacco abuse Status: Chronic (6) Alcohol abuse Status: Chronic Hospital Course - Lab Results Lab Results: Most Recent Lab Values WBC 4.7 10^3/uL (4.5-11.0) 07/11/18 05:30 RBC 3.27 10^6/uL (3.5-6.1) L 07/11/18 05:30 Hgb 9.5 g/dL (12.0-16.0) L 07/11/18 05:30 Hct 30.7 % (36.0-48.0) L 07/11/18 05:30 MCV 93.9 fl (80.0-105.0) 07/11/18 05:30 MCH 29.1 pg (25.0-35.0) 07/11/18 05:30 MCHC 30.9 g/dl (31.0-37.0) L 07/11/18 05:30 RDW 21.0 % (11.5-14.5) H 07/11/18 05:30 Plt Count 296 10^3/uL (120.0-450.0) 07/11/18 05:30 MPV 9.1 fl (7.0-11.0) 07/11/18 05:30 Gran % 54.9 % (50.0-68.0) 07/11/18 05:30 Lymph % (Auto) 30.6 % (22.0-35.0) 07/11/18 05:30 [place] % (Auto) 11.3 % (1.0-6.0) H 07/11/18 05:30 Eos % (Auto) 2.8 % (1.5-5.0) 07/11/18 05:30 Baso % (Auto) 0.4 % (0.0-3.0) 07/11/18 05:30 Gran # 2.58 (1.4-6.5) 07/11/18 05:30 Lymph # (Auto) 1.4 (1.2-3.4) 07/11/18 05:30 [place] # (Auto) 0.5 (0.1-0.6) 07/11/18 05:30 Eos # (Auto) 0.1 (0.0-0.7) 07/11/18 05:30 Baso # (Auto) 0.02 K/mm3 (0.0-2.0) 07/11/18 05:30 Sodium 136 mmol/L (132-148) 07/11/18 05:30 Potassium 3.5 mmol/L (3.6-5.0) L 07/11/18 05:30 Chloride 101 mmol/L (98-107) 07/11/18 05:30 Carbon Dioxide 26 mmol/L (21-33) 07/11/18 05:30 Anion Gap 12 (10-20) 07/11/18 05:30 BUN 4 mg/dL (7-21) L 07/11/18 05:30 Creatinine 0.5 mg/dl (0.7-1.2) L 07/11/18 05:30 Est GFR ( Amer) > 60 07/11/18 05:30 Est GFR (Non-Af Amer) > 60 07/11/18 05:30 Random Glucose 135 mg/dL (70-110) H 07/11/18 05:30 Calcium 8.9 mg/dL (8.4-10.5) 07/11/18 05:30 Phosphorus 4.7 mg/dL (2.5-4.5) H 07/10/18 03:00 Magnesium 1.4 mg/dL (1.7-2.2) L 07/10/18 03:00 Total Bilirubin 0.6 mg/dL (0.2-1.3) 07/11/18 05:30 AST 52 U/L (14-36) H D 07/11/18 05:30 ALT 44 U/L (7-56) 07/11/18 05:30 Alkaline Phosphatase 89 U/L (38-126) 07/11/18 05:30 Total Protein 6.9 g/dL (5.8-8.3) 07/11/18 05:30 Albumin 3.7 g/dL (3.0-4.8) 07/11/18 05:30 Globulin 3.2 gm/dL 07/11/18 05:30 Albumin/Globulin Ratio 1.1 (1.1-1.8) 07/11/18 05:30 Lipase 322 U/L (23-300) H 07/10/18 02:59 Urine Opiates Screen Negative (NEGATIVE) 07/10/18 11:10 Urine Methadone Screen Negative (NEGATIVE) 07/10/18 11:10 Ur Barbiturates Screen Negative (NEGATIVE) 07/10/18 11:10 Ur Phencyclidine Scrn Negative (NEGATIVE) 07/10/18 11:10 Ur Amphetamines Screen Negative (NEGATIVE) 07/10/18 11:10 U Benzodiazepines Scrn Negative (NEGATIVE) 07/10/18 11:10 U Oth Cocaine Metabols Negative (NEGATIVE) 07/10/18 11:10 U Cannabinoids Screen Negative (NEGATIVE) 07/10/18 11:10 Alcohol, Quantitative 114 mg/dL (0-10) H 07/10/18 02:59 - Hospital Course Hospital Course: HPI at time of admission: "28 year old female with PMH of alcohol abuse, pancreatitis and hidradenitis suppurativa presenting to the ED for one day history of epigastric stabbing, constant abdominal pain 04/22, radiates to the back. No alleviating or worsening factors. Patient was recently admitted to [facility] with similar symptoms on 07/07 and signed AMA the next day. Patient reports drinking alcohol after leaving the hospital, last drink of 1/2 pint of vodka few hours before coming. She denies CP, SOB, fevers, headaches, constipation, urinary complaints, numbness, tingling, swelling, recent travel, sickness, trauma, lifestyle changes including diet and weight loss/gain." Hospital Course: Abd/pelvis CT 07/10: mild inflammatory changes confined to the head of the pancreas consistent with acute pancreatitis, no evidence of necrotizing pancreatitis. Resolution of inflammatory changes in the sigmoid colon. Hepatic steatosis with focal fatty sparing of the right lobe adjacent to the falciform ligament. Enlarged anteverted uterus. Contrast-enhancing characteristics in the right adnexa including enhancement of wall of deformed cyst likely recent ruptured cyst. No free fluid identified. Pt was admitted for management of intractable abd pain 2/2 hx pancreatitis 2/2 EtOH abuse. Pt had elevated lipase on admission. Also had elevated LFTs, which downtrended prior to discharge. Pt was able to be advanced to soft diet, which she tolerated well prior to discharge. Pt was also placed on [facility] protocol for monitoring of EtOH withdrawal symptoms. Pt was offered resources for AA and has hx of multiple social work evals, which pt refused. Was counseled on importance of EtOH cessation, as that it could worsen her symptoms and cause further damage to her pancreas and liver which may be irreversible. Pt was also offered resources from psychiatry for evaluation of anxiety/depression, which pt refused and stated that she would rather go home. Pt was discharged to home on 07/11/18. Was given appt on 07/20/17 at 3:00 pm at [facility] for follow-up with primary care after hospital discharge. Discharge Exam - Head Exam Head Exam: ATRAUMATIC, NORMAL INSPECTION, NORMOCEPHALIC - Eye Exam Eye Exam: EOMI, Normal appearance, PERRL - ENT Exam ENT Exam: Mucous Membranes Moist - Respiratory Exam Respiratory Exam: Clear to PA & Lateral, NORMAL BREATHING PATTERN, UNREMARKABLE. absent: Rales, Rhonchi, Wheezes - Cardiovascular Exam Cardiovascular Exam: REGULAR RHYTHM, +S1, +S2. absent: Gallop, Rubs, Systolic Murmur - GI/Abdominal Exam GI & Abdominal Exam: Normal Bowel Sounds, Soft, Unremarkable. absent: Distended, Guarding, Organomegaly, Tenderness - Extremities Exam Extremities exam: full ROM, normal capillary refill, normal inspection, pedal pulses present - Neurological Exam Neurological exam: Alert, CN II-XII Intact, Normal Gait, Oriented x3, Reflexes Normal - Psychiatric Exam Psychiatric exam: Flat Affect - Skin Skin Exam: Dry, Intact, Normal Color, Warm Discharge Plan - Follow Up Plan Condition: STABLE Disposition: HOME/ ROUTINE Instructions: Pancreatitis, Alcohol Use - When Is Drinking a Problem?, Gastritis (DC) Additional Instructions: Please follow-up at [facility] (1st floor of [facility]) for your appointment after hospital discharge on Friday07/20/17 at 3:00 pm. Please abstain from using alcohol or other drugs. Should your symptoms worsen, please report to your nearest emergency department. Referrals: at [facility] [Outside] <Marion Jauregui - Last Filed: 07/12/18 11:10> Provider - Provider Date of Admission: 07/10/18 05:20 Attending physician: Mayelin Ledesma MD Hospital Course - Lab Results Lab Results: Most Recent Lab Values WBC 4.7 10^3/uL (4.5-11.0) 07/11/18 05:30 RBC 3.27 10^6/uL (3.5-6.1) L 07/11/18 05:30 Hgb 9.5 g/dL (12.0-16.0) L 07/11/18 05:30 Hct 30.7 % (36.0-48.0) L 07/11/18 05:30 MCV 93.9 fl (80.0-105.0) 07/11/18 05:30 MCH 29.1 pg (25.0-35.0) 07/11/18 05:30 MCHC 30.9 g/dl (31.0-37.0) L 07/11/18 05:30 RDW 21.0 % (11.5-14.5) H 07/11/18 05:30 Plt Count 296 10^3/uL (120.0-450.0) 07/11/18 05:30 MPV 9.1 fl (7.0-11.0) 07/11/18 05:30 Gran % 54.9 % (50.0-68.0) 07/11/18 05:30 Lymph % (Auto) 30.6 % (22.0-35.0) 07/11/18 05:30 [place] % (Auto) 11.3 % (1.0-6.0) H 07/11/18 05:30 Eos % (Auto) 2.8 % (1.5-5.0) 07/11/18 05:30 Baso % (Auto) 0.4 % (0.0-3.0) 07/11/18 05:30 Gran # 2.58 (1.4-6.5) 07/11/18 05:30 Lymph # (Auto) 1.4 (1.2-3.4) 07/11/18 05:30 [place] # (Auto) 0.5 (0.1-0.6) 07/11/18 05:30 Eos # (Auto) 0.1 (0.0-0.7) 07/11/18 05:30 Baso # (Auto) 0.02 K/mm3 (0.0-2.0) 07/11/18 05:30 Sodium 136 mmol/L (132-148) 07/11/18 05:30 Potassium 3.5 mmol/L (3.6-5.0) L 07/11/18 05:30 Chloride 101 mmol/L (98-107) 07/11/18 05:30 Carbon Dioxide 26 mmol/L (21-33) 07/11/18 05:30 Anion Gap 12 (10-20) 07/11/18 05:30 BUN 4 mg/dL (7-21) L 07/11/18 05:30 Creatinine 0.5 mg/dl (0.7-1.2) L 07/11/18 05:30 Est GFR ( Amer) > 60 07/11/18 05:30 Est GFR (Non-Af Amer) > 60 07/11/18 05:30 Random Glucose 135 mg/dL (70-110) H 07/11/18 05:30 Calcium 8.9 mg/dL (8.4-10.5) 07/11/18 05:30 Phosphorus 4.7 mg/dL (2.5-4.5) H 07/10/18 03:00 Magnesium 1.4 mg/dL (1.7-2.2) L 07/10/18 03:00 Total Bilirubin 0.6 mg/dL (0.2-1.3) 07/11/18 05:30 AST 52 U/L (14-36) H D 07/11/18 05:30 ALT 44 U/L (7-56) 07/11/18 05:30 Alkaline Phosphatase 89 U/L (38-126) 07/11/18 05:30 Total Protein 6.9 g/dL (5.8-8.3) 07/11/18 05:30 Albumin 3.7 g/dL (3.0-4.8) 07/11/18 05:30 Globulin 3.2 gm/dL 07/11/18 05:30 Albumin/Globulin Ratio 1.1 (1.1-1.8) 07/11/18 05:30 Lipase 322 U/L (23-300) H 07/10/18 02:59 Urine Opiates Screen Negative (NEGATIVE) 07/10/18 11:10 Urine Methadone Screen Negative (NEGATIVE) 07/10/18 11:10 Ur Barbiturates Screen Negative (NEGATIVE) 07/10/18 11:10 Ur Phencyclidine Scrn Negative (NEGATIVE) 07/10/18 11:10 Ur Amphetamines Screen Negative (NEGATIVE) 07/10/18 11:10 U Benzodiazepines Scrn Negative (NEGATIVE) 07/10/18 11:10 U Oth Cocaine Metabols Negative (NEGATIVE) 07/10/18 11:10 U Cannabinoids Screen Negative (NEGATIVE) 07/10/18 11:10 Alcohol, Quantitative 114 mg/dL (0-10) H 07/10/18 02:59 Attending/Attestation - Attestation I have personally seen and examined this patient.: Yes I have fully participated in the care of the patient.: Yes I have reviewed all pertinent clinical information, including history, physical exam and plan: Yes Notes (Text): 07/12/18 11:02 Attending note; Patient seen and examined with resident. Patient is alert and awake. denies any chest pain, shortness of breath. Tolerating diet. Patient is a 28 year old female well known to us with PMH of alcohol abuse, pancreatitis and hydradenitis suppurativa presenting to the ED for one day history of abdominal pain. patient has chronic abdominal pain. opiate seeking behaviour. Patient goes to multiple hospitals in ER for alcohol related issues. Complete alcohol cessation is strongly advised Patient referred to AA meetings and AA rehabilitation multiple times. Compliance with follow-up . 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 Patient was evaluated by psychiatrist during last admission. Seeking benzodiazepine and also. But refused to get admitted to the psychiatric floor. Patient denied permission to talk to her family members. Patient refused all the help offered by us. Patient will be discharged home. Prognosis is poor secondary to continuous alcohol abuse and noncompliance with follow-up. Patient does not follow up with PMD. patient was given appointment to [facility] clinic multiple times.
== END 2018-07-11 14:10 | disposition home or self-care (01) ==
LOC: ED 23:31 → ERH 07-10 05:20 → 3RSO 07-10 07:02 → 3RNO 07-10 11:11 → ERH 07-11 01:24 → 3RNO 07-11 01:25
PROVIDERS: ADMIT Internal Medicine; ATTEND Internal Medicine
DX: K85.90 Acute pancreatitis without necrosis or infection, unspecified (principal); K29.20 Alcoholic gastritis without bleeding; F10.10 Alcohol abuse, uncomplicated; K70.9 Alcoholic liver disease, unspecified; F41.9 Anxiety disorder, unspecified; F17.210 Nicotine dependence, cigarettes, uncomplicated; L73.2 Hidradenitis suppurativa; F32.9 Major depressive disorder, single episode, unspecified; K76.0 Fatty (change of) liver, not elsewhere classified; Y90.5 Blood alcohol level of 100-119 mg/100 ml; Z91.19 Patient's noncompliance with other medical treatment and regimen; Z76.5 Malingerer [conscious simulation]
CPT/HCPCS: 36415; 74177; 80053; 80320; 80324; 80345; 80346; 80349; 80353; 80358; 80361; 83690; 83735; 83992; 84100; 85025; 85027; 93005; 96361; 96365; 96375; 96376; 99285; C9113; G0378; J1885; J2060; J2405; J3411; J7030; J7070; Q9967